=== PATIENT | female | born 1975 | race Caucasian/White ===

== ENCOUNTER → 2017-12-16 14:39 | Outpatient (CLI) | payer BC, SELFPAY ==
[2017-12-16 16:06] LABS: Erythrocyte Sedimentation Rate 37 mm/hr (0-20)
[2017-12-16 16:36] LABS: Anion Gap 11 (5-15); BUN 15 mg/dL (7-18); BUN/Creat Ratio 20.2 RATIO (10-20); CRP < 2.90 mg/L (0.0-3.0); Calcium,Total 8.7 mg/dL (8.5-10.1); Chloride 104 mmol/L (98-107); Cholesterol 288 mg/dL (200); Creatinine, Serum 0.74 mg/dL (0.55-1.02); EST Glomerular Filtration Rate 91 mL/min (>60); Est Glom Filt Rate - Afr Amer 110 mL/min (>60); Glucose 124 mg/dL (74-106); High Density Lipoprotein 47 mg/dL; Potassium 3.4 mmol/L (3.5-5.1); Sodium Level 138 mmol/L (136-145); Thyroid Stim Hormone (TSH) 2.22 uIU/mL (0.358-3.74); Triglycerides 371 mg/dL; Very Low Density Lipoprotein 74 mg/dL (5-40)
== END ==
PROVIDERS: Family Provider Family Medicine; PCP Family Medicine; Visit Provider Family Medicine
DX: E78.5 Hyperlipidemia, unspecified (principal); M19.90 Unspecified osteoarthritis, unspecified site; F32.9 Major depressive disorder, single episode, unspecified
CPT/HCPCS: 36415; 80048; 80061; 84443; 85652; 86038; 86140

== ENCOUNTER → 2017-12-26 16:25 | Outpatient (CLI) | payer BC, SELFPAY ==
[2017-12-29 11:13] LABS: ANTINUCLEAR ANTIBODIES DIRECT Negative (Negative)
== END ==
PROVIDERS: Family Provider Family Medicine; PCP Family Medicine; Visit Provider Family Medicine
DX: M19.90 Unspecified osteoarthritis, unspecified site (principal)
CPT/HCPCS: 86038

== ENCOUNTER → 2018-01-04 06:08 | Outpatient (CLI) | payer BC, SELFPAY ==
--- NOTE | 2018-01-04 11:21 | STRESSREP ---
Stress Test Report Date: 12/03/2017 Procedure: Exercise tolerance test/imaging study Indications: Chest pain; shortness of breath Consent: Per the patient Procedure: The patient exercised on a Sky protocol for 10 minutes 31 seconds completing stage 2 and 1 minute 30 seconds of stage III achieving a peak heart rate of 155 bpm (87% predicted maximal heart rate) with a peak blood pressure 142/68 mmHg and a peak MET capacity of 9 METs. The baseline ECG demonstrated sinus rhythm. The peak exercise ECG demonstrated somatic/motion artifact with no obvious ECG changes. There were no cardiac dysrhythmias pretest, during exercise, or recovery. The functional capacity was considered average. There was no complaint of chest discomfort during exercise or recovery. The examination was discontinued secondary to dyspnea. Impression: 1. Technically adequate (percent predicted maximal heart rate greater than 85%) exercise tolerance test 2. Peak exercise ECG with somatic/motion artifact with no obvious ECG changes 3. No cardiac dysrhythmias pretest, during exercise, or recovery. 4. Nuclear images pending Myocardial perfusion imaging study: Technique: The patient was injected with 1.3 mCi of technetium 99m Cardiolite and subsequently rest SPECT Cardiolite nuclear imaging was obtained in the horizontal long, vertical long, and short axis views. The patient exercised on a Sky protocol for 7 minutes 31 seconds completing stage stage II and I minute 30 seconds of stage III achieving a peak heart rate of 155 bpm (87 % predicted maximal heart rate) with a peak blood pressure 142/68 mmHg and a peak MET capacity of 9 METs the patient was injected with 33.9 mCi of technetium 99m Cardiolite and subsequently stress SPECT Cardiolite nuclear imaging was obtained in the horizontal long, vertical long, and short axis views. A gated Cardiolite study at peak stress was obtained. Interpretation: Rest and stress SPECT Cardiolite nuclear imaging status post realignment, normalization, and attenuation correction, demonstrates the appearance of relative uniform tracer uptake and myocardial perfusion appearing within normal limits. There is end systolic thickening and brightening. The gated Cardiolite study demonstrates myocardial thickening and inward wall motion. The reported LVEF is 72 %. Impression: 1. Rest and stress SPECT Cardiolite nuclear imaging demonstrate relative uniform tracer uptake and myocardial perfusion appearing within normal limits. 2. The gated Cardiolite study reports an LVEF of 72 %. This note was generated with [employer] software. It may contain incorrect words, spelling, and punctuation that were not noted in checking the note before signing.
--- NOTE | 2018-01-04 11:26 | STRESSREP_ITS ---
Stress Test Report Date: 12/03/2017 Procedure: Exercise tolerance test/imaging study Indications: Chest pain; shortness of breath Consent: Per the patient Procedure: The patient exercised on a Sky protocol for 10 minutes 31 seconds completing stage 2 and 1 minute 30 seconds of stage III achieving a peak heart rate of 155 bpm (87% predicted maximal heart rate) with a peak blood pressure 142/68 mmHg and a peak MET capacity of 9 METs. The baseline ECG demonstrated sinus rhythm. The peak exercise ECG demonstrated somatic/motion artifact with no obvious ECG changes. There were no cardiac dysrhythmias pretest, during exercise, or recovery. The functional capacity was considered average. There was no complaint of chest discomfort during exercise or recovery. The examination was discontinued secondary to dyspnea. Impression: 1. Technically adequate (percent predicted maximal heart rate greater than 85% ) exercise tolerance test 2. Peak exercise ECG with somatic/motion artifact with no obvious ECG changes 3. No cardiac dysrhythmias pretest, during exercise, or recovery. 4. Nuclear images pending Myocardial perfusion imaging study: Technique: The patient was injected with 1.3 mCi of technetium 99m Cardiolite and subsequently rest SPECT Cardiolite nuclear imaging was obtained in the horizontal long, vertical long, and short axis views. The patient exercised on a Sky protocol for 7 minutes 31 seconds completing stage stage II and I minute 30 seconds of stage III achieving a peak heart rate of 155 bpm (87 % predicted maximal heart rate) with a peak blood pressure 142/68 mmHg and a peak MET capacity of 9 METs the patient was injected with 33.9 mCi of technetium 99m Cardiolite and subsequently stress SPECT Cardiolite nuclear imaging was obtained in the horizontal long, vertical long, and short axis views. A gated Cardiolite study at peak stress was obtained. Interpretation: Rest and stress SPECT Cardiolite nuclear imaging status post realignment, normalization, and attenuation correction, demonstrates the appearance of relative uniform tracer uptake and myocardial perfusion appearing within normal limits. There is end systolic thickening and brightening. The gated Cardiolite study demonstrates myocardial thickening and inward wall motion. The reported LVEF is 72 %. Impression: 1. Rest and stress SPECT Cardiolite nuclear imaging demonstrate relative uniform tracer uptake and myocardial perfusion appearing within normal limits. 2. The gated Cardiolite study reports an LVEF of 72 %. This note was generated with [employer] software. It may contain incorrect words, spelling, and punctuation that were not noted in checking the note before signing.
== END ==
PROVIDERS: Family Provider Family Medicine; PCP Family Medicine; Visit Provider Family Medicine
DX: E78.5 Hyperlipidemia, unspecified (principal); Z82.49 Family history of ischemic heart disease and other diseases of the circulatory system; R07.9 Chest pain, unspecified
CPT/HCPCS: 78452; 93017; A9500; A4216

== ENCOUNTER → 2021-01-02 12:23 | Outpatient (CLI) | payer BC, SELFPAY ==
[2020-08-01 08:56] VITALS: BMI 35.6
== END ==
PROVIDERS: PCP Family Medicine; Referring Provider Family Medicine; Visit Provider Family Medicine
DX: R00.2 Palpitations (principal)
CPT/HCPCS: 93225; 93226

== ENCOUNTER → 2021-01-18 | Outpatient (CLI) | payer BC, SELFPAY ==
[2021-01-19 09:13] LABS: Mucous, Urine 0 SEEN /hpf (<or=2+)
[2021-01-19 09:20] LABS: Color, Urine Yellow (Yellow); Glucose, Dipstick Normal (Normal); Ketone-Dipstick 5 mg/dl (Negative); Leukocyte Esterase-Dipstick 25 /ul (Negative); Nitrite-Dipstick Negative (Negative); Occult Blood-Urine 250 /ul (Negative); Protein-Dipstick 15 mg/dl (Negative); Specific Gravity, Urine 1.015 (1.002-1.030); Urine Bilirubin Dipstick Negative (Negative); Urine Clarity Sl. Cloudy (Clear); Urine Urobilinogen Normal (Normal)
[2021-01-19 09:33] LABS: Red Blood Cells-Urine 25-50 SEEN /hpf (0-5); White Blood Cells 0-5 SEEN /hpf (0-5)
[2021-01-19 09:34] LABS: Bacteria 1+ /hpf (None Seen); Squamous Epithelial Cells - UA 0-5 SEEN /hpf (5-10)
== END | disposition home or self-care (01) ==
LOC: LABSPEC 14:15
PROVIDERS: PCP Family Medicine; Referring Provider Physician Assistant Medical; Visit Provider Physician Assistant Medical
DX: N39.0 Urinary tract infection, site not specified (principal)
CPT/HCPCS: 81001; 87086; 87088

== ENCOUNTER 2021-01-30 16:37 | Emergency (ER) | payer BC, SELFPAY ==
[2021-01-30 16:38] VITALS: BP 145/82; PULSE 94; RESP 16; TEMP 36.4; O2SAT 97; BMI 36.0
--- NOTE | 2021-01-30 16:44 | CT_ITS ---
STUDY: CT ABDOMEN AND PELVIS WITHOUT CONTRAST REASON FOR EXAM: Female, 45 years old. RT FLANK PAIN. Hx of HLD, kidney stone and low back pain RADIATION DOSAGE (If Supplied By Facility): CTDIvol = ( 18.09 ) mGy, DLP = ( 822.44 ) mGycm TECHNIQUE: Transaxial images were obtained from the dome of the diaphragm to the symphysis pubis without oral contrast, and without intravenous contrast. Sagittal and coronal images were reconstructed. Individualized dose optimization techniques were used for this CT. COMPARISON: CT of abdomen and pelvis dated August 06, 2014 FINDINGS: The visualized lung bases are unremarkable. The visualized portions of the heart are within normal limits. Normal liver. Normal gallbladder and extrahepatic biliary system. Normal spleen. Normal pancreas. Normal bilateral adrenal glands. A 3 mm stone is present in the right proximal ureter with mild hydroureter and hydronephrosis proximal to this region. No additional radiopaque stones are seen in either kidney. Normal left kidney. Normal visualized stomach. Normal small intestine. Normal colon. The appendix is visualized and appears normal. Normal abdominal aorta. Normal inferior vena cava. Normal retroperitoneum. Normal urinary bladder. Normal visualized uterus. Normal abdominal wall. Normal osseous structures. CT/Abdomen/Pelvis without Cont IMPRESSION: 1. Mild right hydronephrosis and hydroureter due to a 3 mm stone in the proximal aspect of the right ureter Electronically Signed: Fabricio Sanchez MD at 18:37 EDT , Service support ,
--- NOTE | 2021-01-30 16:45 | ED.VIS.GEN ---
History of Present Illness Chief Complaint: Flank Pain Informant: Patient Onset: Today Context: Sudden Onset Timing: Continuous Current Severity: Moderate Maximum Severity: Severe Narrative: The patient is a 45-year-old female who presents to the emergency department with right-sided flank pain. She states her symptoms began suddenly about 3 hours ago. She states it would come in waves and seems to be moving towards her anterior right abdomen. She has been nauseated without vomiting. She denies any fevers or chills. The patient does have history of prior kidney stone about 7 years ago. She states she did require lithotripsy. She is otherwise been in her normal state of health. She denies any trauma. She denies any food intolerance. Prior similar symptoms: Yes Recent Illness/Hospitalization: No Past Medical History - Allergies and Home Meds Allergies/Adverse Reactions: Allergies No Known Allergies Allergy (Verified 01/30/21 16:40) Primary Care Physician: Isael Parker MD [STAFF PHYSICIAN] - Prior records reviewed: Yes Past Medical History: None Surgical History: noncontributory Smoking Status: Current every day smoker Review of Systems General: Denies: Chills, Fever, Sweats Eyes: Denies: Visual changes - bilaterally, Diplopia ENT: Denies: Rhinorrhea, Sore throat Cardiovascular: Denies: Chest pain, Palpitations Respiratory: Denies: Dyspnea, Cough, Dyspnea on exertion Gastrointestinal: Reports: Nausea. Denies: Abdominal pain, Vomiting, Diarrhea, Melena, Hematochezia Genitourinary: Denies: Dysuria, Hematuria, Frequency Musculoskeletal: Reports: Back pain. Denies: Extremity Pain Skin: Denies: Rash, Wounds Neurological: Denies: Headache, Weakness, Numbness Physical Exam Vital Signs/Narrative: Vital Signs Temp Pulse Resp BP Pulse Ox 01/30/21 16:38 97.6 F L 94 16 145/82 H 97 Inital Vital Signs reviewed: Yes General: Well nourished, Well developed, No Acute Distress Head: Normocephalic, Atraumatic Eyes: Perrl, EOMI ENT: Moist mucous membranes, No rhinorrhea Neck: Supple, Nontender Cardiovascular: Regular rate, Regular rhythm, No murmurs Respiratory: No distress, CTA bilaterally, Chest nontender Abdomen: Soft, Nontender, Nondistended, Normal bowel sounds Back: Normal Inspection, CVA tenderness Extremities: Nontender, No edema Skin: Normal color, No rash Neurological: Alert, Oriented x3, Cranial nerves II-XII grossly intact, Normal Strength, Normal Sensation Psychological: Normal affect, Normal Mood Diagnostic/Tx/Re-eval Abnormal Lab Results 01/30/21 01/30/21 01/30/21 17:00 17:00 17:00 WBC 13.8 H RBC 5.04 Hgb 14.7 Hct 44.7 MCV 88.7 MCH 29.2 MCHC 32.9 RDW Std Deviation 43.3 RDW Coeff of Jessica 13.2 Plt Count 464 H MPV 9.9 Immature Gran % (Auto) 0.700 Neut % (Auto) 58.2 Lymph % (Auto) 27.5 [place] % (Auto) 10.0 Eos % (Auto) 2.2 Baso % (Auto) 1.4 H Absolute Neuts (auto) 8.0 H Absolute Lymphs (auto) 3.80 Nucleated RBC % 0 Sodium 137 Potassium 3.8 Chloride 106 Carbon Dioxide 26.0 Anion Gap 5 BUN 12 Creatinine 0.82 Estim Creat Clear Calc 70.91 Est GFR (MDRD) Af Amer 96 Est GFR (MDRD) Non-Af 79 BUN/Creatinine Ratio 14.6 Glucose 78 Calcium 9.1 Serum , Qual NEGATIVE Clinical Impression(s) from Imaging Studies Abdomen/Pelvis CT 01/30/21 16:44 IMPRESSION: 1. Mild right hydronephrosis and hydroureter due to a 3 mm stone in the proximal aspect of the right ureter Electronically Signed: Fabricio Sanchez MD at 18:37 EDT , Service support , - Medical Decision Making The patient presents with rather acute onset right-sided flank pain. She was nausea without vomiting. She does have history of kidney stone. IV was established. Patient was given analgesics and antiemetics. Within 30 minutes, she had total resolution of pain. Screening labs obtained were unremarkable. Patient underwent CT imaging. She has a 3 mm stone at the mid ureter with some mild hydro-. However, the patient's pain is now controlled. I do feel that she is safe for outpatient follow-up. She was counseled on concerning symptoms and reasons to return. She will be given a short course of analgesics, antiemetics, and Flomax. She will be given outpatient urology follow-up. Impression 1. Right ureteral stone with colic ED Disposition - Plan for ED Patient: Instructions: ED Kidney Stone w/ Colic Prescriptions: Tamsulosin HCl [Flomax] 0.4 mg PO DAILY #7 capsule Prescription Printed Hydrocodone Bitart/Apap 5-325 [[place] 5MG-325MG] 1 tablet PO Q6H PRN PRN 3 Days #10 tab PRN Reason: Pain Prescription Printed Ondansetron [Zofran Odt] 4 mg PO Q8H PRN PRN #10 tablet PRN Reason: Nausea Prescription Printed Referrals: Isael Parker MD [STAFF PHYSICIAN] -
[2021-01-30] MEDS: Ondansetron 4 MG/2 ML Vial IV (17:07)
[2021-01-30] MEDS: Ketorolac 30 MG/ML Syringe IV (17:07)
[2021-01-30] MEDS: Morphine 4 MG/ML Syringe IV (17:08)
[2021-01-30] MEDS: 0.9% Normal Saline 1,000 ML 250 ML IV (17:09)
[2021-01-30 17:11] LABS: Basophil% 1.4 % (0-1); Eosinophil# 0.31 X10^3/uL; Eosinophils% 2.2 % (0-5); Hematocrit 44.7 % (37-47); Hemoglobin 14.7 g/dL (12.0-15.0); Lymphocyte % 27.5 % (19-41); Mean Corp Hgb Conc 32.9 g/dL (32-36); Mean Corpuscular Hgb 29.2 pg (27.0-32.0); Mean Corpuscular Volume 88.7 fL (81-99); Mean Platelet Vol. 9.9 fl (6.2-12.0); Monocyte# 1.39 X10^3/uL; NRBC Flagged by Analyzer 0 % (0-5); Neutrophil # 8.04 X10^3/uL (2.7-7.7); Neutrophil % 58.2 % (47-70); Platelet Count 464 K/mm3 (150-450); RBC Distribution Width CV 13.2 % (11.6-14.6); RBC Distribution Width SD 43.3 fl (35.1-43.9); Red Blood Count 5.04 M/mm3 (4.2-5.4); White Blood Count 13.8 K/mm3 (4.4-11.0)
[2021-01-30 17:21] LABS: Anion Gap 5 (5-15); BUN 12 mg/dL (7-18); BUN/Creat Ratio 14.6 RATIO (10-20); Calcium,Total 9.1 mg/dL (8.5-10.1); Chloride 106 mmol/L (98-107); Creatinine, Serum 0.82 mg/dL (0.55-1.02); EST Glomerular Filtration Rate 79 mL/min (>60); Est Glom Filt Rate - Afr Amer 96 mL/min (>60); Estimated Creatinine Clearance 70.91 ml/min; Glucose 78 mg/dL (74-106); Potassium 3.8 mmol/L (3.5-5.1); Sodium Level 137 mmol/L (136-145)
[2021-01-30 17:59] LABS: Internal QC Validated? YES +Cl - CLEAR BKGD; Pregnancy, Serum, hCG Quali. NEGATIVE Negative
[2021-01-30 18:21] LABS: Bacteria 0 SEEN /hpf (None Seen); Mucous, Urine 0 SEEN /hpf (<or=2+)
[2021-01-30 18:24] LABS: Color, Urine Yellow (Yellow); Glucose, Dipstick Normal (Normal); Ketone-Dipstick 5 mg/dl (Negative); Leukocyte Esterase-Dipstick 25 /ul (Negative); Nitrite-Dipstick Negative (Negative); Occult Blood-Urine 250 /ul (Negative); Protein-Dipstick Negative (Negative); Urine Bilirubin Dipstick Negative (Negative); Urine Clarity Sl. Cloudy (Clear); Urine Urobilinogen Normal (Normal)
[2021-01-30 18:35] LABS: Red Blood Cells-Urine 25-50 SEEN /hpf (0-5); White Blood Cells 0-5 SEEN /hpf (0-5)
[2021-01-30 18:36] LABS: Amorphous Sediment 1+ URATE; Squamous Epithelial Cells - UA 0-5 SEEN /hpf (5-10)
[2021-01-30 18:45] VITALS: PULSE 88; RESP 16; O2SAT 100
== END 2021-01-30 18:45 | disposition home or self-care (01) ==
LOC: ED 16:53
PROVIDERS: Emergency Provider Emergency Medicine; PCP Family Medicine
DX: N13.2 Hydronephrosis with renal and ureteral calculous obstruction (principal); F17.200 Nicotine dependence, unspecified, uncomplicated; Z87.442 Personal history of urinary calculi
CPT/HCPCS: 74176; 80048; 81001; 84703; 85025; 96374; 96375; 99283; J7030; A4216; J2405

== ENCOUNTER → 2021-03-16 08:40 | Outpatient (CLI) | payer BC, SELFPAY ==
--- NOTE | 2021-03-16 08:51 | RAD_ITS ---
INDICATION: CALCULUS URETER EXAMINATION/TECHNIQUE: X-RAY - XR Abdomen 1 View COMPARISON: None FINDINGS: BOWEL GAS PATTERN: Non-obstructive. No bowel or stomach distention. FREE AIR: Not assessed on a single supine view. ORGANOMEGALY: Not seen. CALCIFICATIONS: 4 mm round calcification in the right hemipelvis. LOWER CHEST: No acute pathology. BONES AND SOFT TISSUES: No acute pathology. RAD/Abdomen Single View IMPRESSION: 4 mm round calcification in the right hemipelvis. This could represent a phlebolith versus a stone within the right ureterovesical junction. Electronically Signed: Gage Martinez MD at 18:26 EDT Tel , Service support ,
[2021-03-16 11:03] LABS: Absolute Lymphocyte Count 2.73 X10^3/uL (0.83-4.51); Absolute Neutrophil Count 4.6 X10^3/uL (2.0-7.7); Basophil% 1.2 % (0-1); Eosinophil# 0.35 X10^3/uL; Eosinophils% 4.1 % (0-5); Hematocrit 45.5 % (37-47); Hemoglobin 14.8 g/dL (12.0-15.0); Lymphocyte # 2.73 X10^3/ul (0.83-4.51); Lymphocyte % 32.1 % (19-41); Mean Corp Hgb Conc 32.5 g/dL (32-36); Mean Corpuscular Hgb 29.2 pg (27.0-32.0); Mean Corpuscular Volume 89.9 fL (81-99); Mean Platelet Vol. 11.5 fl (6.2-12.0); Monocyte# 0.73 X10^3/uL; Monocyte% 8.6 % (0-10); NRBC Flagged by Analyzer 0 % (0-5); Neutrophil # 4.57 X10^3/uL (2.7-7.7); Neutrophil % 53.8 % (47-70); Platelet Count 378 K/mm3 (150-450); RBC Distribution Width CV 13.3 % (11.6-14.6); RBC Distribution Width SD 43.8 fl (35.1-43.9); Red Blood Count 5.06 M/mm3 (4.2-5.4); White Blood Count 8.5 K/mm3 (4.4-11.0)
[2021-03-16 11:41] LABS: AST(SGOT) 16 U/L (15-37); Alanine Aminotransfer ALT/SGPT 31 U/L (13-56); Albumin, Serum 3.6 g/dL (3.2-5.0); Alkaline Phosphatase 93 U/L (45-117); Anion Gap 7 (5-15); BUN 11 mg/dL (7-18); BUN/Creat Ratio 15.4 RATIO (10-20); Calcium,Total 9.2 mg/dL (8.5-10.1); Chloride 105 mmol/L (98-107); Cholesterol 259 mg/dL (200); Creatinine, Serum 0.72 mg/dL (0.55-1.02); EST Glomerular Filtration Rate 93 mL/min (>60); Est Glom Filt Rate - Afr Amer 113 mL/min (>60); Globulin 3.7 g/dL (2.2-4.2); Glucose 88 mg/dL (74-106); High Density Lipoprotein 48 mg/dL; Protein, Total 7.3 g/dL (6.4-8.2); Sodium Level 137 mmol/L (136-145); Thyroid Stim Hormone (TSH) 2.81 uIU/mL (0.358-3.74); Triglycerides 118 mg/dL; Very Low Density Lipoprotein 24 mg/dL (5-40)
[2021-03-16 12:20] LABS: Hemoglobin A1c 5.4 % (3.8-5.6)
== END ==
PROVIDERS: PCP Family Medicine; Referring Provider Nurse Practitioner Adult Health; Visit Provider Nurse Practitioner Adult Health
DX: Z00.01 Encounter for general adult medical examination with abnormal findings (principal); F32.9 Major depressive disorder, single episode, unspecified; E78.00 Pure hypercholesterolemia, unspecified; R00.2 Palpitations; N20.1 Calculus of ureter
CPT/HCPCS: 36415; 74018; 80053; 80061; 83036; 84443; 85025

== ENCOUNTER 2021-07-27 06:15 | Emergency (ER) | payer BC, SELFPAY ==
[2021-07-27 06:16] VITALS: BP 142/87; PULSE 72; RESP 16; TEMP 36.5; O2SAT 99; BMI 35.4
--- NOTE | 2021-07-27 07:00 | CT_ITS ---
STUDY: CT ABDOMEN AND PELVIS WITHOUT CONTRAST REASON FOR EXAM: Female, 46 years old. Kidney Stone, right flank pain RADIATION DOSAGE (If Supplied By Facility): CTDIvol = ( 15.99 ) mGy, DLP = ( 822.92 ) mGycm TECHNIQUE: Transaxial images were obtained from the dome of the diaphragm to the symphysis pubis without oral contrast, and without intravenous contrast. Sagittal and coronal images were reconstructed. Individualized dose optimization techniques were used for this CT. COMPARISON: 01/30/2021 FINDINGS: The visualized lung bases are unremarkable. The visualized portions of the heart are within normal limits. Normal liver. Normal gallbladder and extrahepatic biliary system. Normal spleen. Normal pancreas. Normal bilateral adrenal glands. Tiny right UVJ calculus with moderate right hydroureteronephrosis, right renal edema and swelling, and perinephric fat stranding. Normal left kidney. Normal visualized stomach. Normal small intestine. Normal colon. The appendix is visualized and appears normal. Normal abdominal aorta. Normal inferior vena cava. Normal retroperitoneum. Normal urinary bladder. Normal visualized uterus. Normal abdominal wall. Normal osseous structures. CT/Abdomen/Pelvis without Cont IMPRESSION: Tiny obstructing right UVJ calculus with moderate hydroureteronephrosis. Electronically Signed: Adin Yadav MD at 7:48 EDT Tel , Service support ,
[2021-07-27] MEDS: Ondansetron 4 MG/2 ML Vial IV (07:09)
[2021-07-27] MEDS: Morphine 4 MG/ML Syringe IV (07:09)
[2021-07-27] MEDS: Ketorolac 30 MG/ML Syringe IV (07:09)
--- NOTE | 2021-07-27 07:09 | EDS_ITS ---
HPI History of Present Illness Chief Complaint: Flank Pain Informant: patient Onset/Context/Timing Onset: Today Timing: Continuous Current Severity: Moderate Maximum Severity: Severe Narrative Narrative: Patient presents secondary to right flank pain. Patient states she woke at 2 AM this morning with severe right flank pain. This feels like similar kidney stones. Patient does report nausea secondary to pain. She has required surgical intervention for one prior kidney stone. [facility] Medical History Kidney stones Home Medications lorazepam 1 mg PO DAILY PRN PRN 11/28/17 [History Last Taken Unknown] sertraline 50 mg tablet PO #90 tab 07/20/19 [History Last Taken Unknown] tizanidine 4 mg capsule 4 mg PO Q8H PRN #30 cap 08/01/20 [Rx Last Taken Unknown] sulfamethoxazole 800 mg-trimethoprim 160 mg tablet 1 tab PO BID #10 tab 01/18/21 [Rx Last Taken Unknown] ondansetron 4 mg PO Q8H PRN PRN #10 tablet 01/30/21 [Rx Last Taken Unknown] tamsulosin 0.4 mg PO DAILY #7 capsule 01/30/21 [Rx Last Taken Unknown] hydrocodone-acetaminophen 1 tab PO Q6H PRN 3 Days #10 tab 07/27/21 [Rx Last Taken Unknown] ketorolac 10 mg PO Q6H PRN 3 Days #10 tab 07/27/21 [Rx Last Taken Unknown] ondansetron 4 mg PO Q8H PRN #10 tab 07/27/21 [Rx Last Taken Unknown] tamsulosin [Flomax] 0.4 mg PO DAILY #7 cap 07/27/21 [Rx Last Taken Unknown] Allergy/AdvReac Type Severity Reaction Status Date / Time No Known Allergies Allergy Verified 07/27/21 06:18 Family History Father Heart disease Grandmother Heart disease Grandfather Heart disease Surgical History Hx of section Status post surgical removal of both fallopian tubes Social History Smoking Status: Current every day smoker tobacco type: cigarettes alcohol intake: current alcohol intake frequency: holidays/special occasions only ROS ROS ED Constitutional Constitutional ED: Denies chills or fever(s) Eyes Eyes: Denies change in vision ENT ENT ED: Denies sore throat Cardiovascular Cardiovascular: Denies chest pain Respiratory/Chest Respiratory/Chest: Denies cough or dyspnea Gastrointestinal Gastrointestinal: Reports abdominal pain and nausea; Denies diarrhea or vomiting Genitourinary Genitourinary ED: Denies dysuria or hematuria Musculoskeletal Musculoskeletal: Reports back pain Integumentary Denies rash Neurologic Neurologic: Denies headache(s) or weakness Allergic/Immunologic Allergic/Immunologic ED: Denies urticaria EXAM Physical Exam Const Vital Signs: 07/27/21 06:16 Temperature 97.7 F L Temperature Source Oral Pulse Rate 72 Respiratory Rate 16 Blood Pressure 142/87 H Blood Pressure Mean 105 Pulse Ox 99 Oxygen Delivery Method Room Air Positive well nourished and well developed General Appearance ED: well developed HEENT Reports normocephalic and head/scalp atraumatic Eyes PERRL and EOMs intact bilaterally Neck supple Chest Wall inspection of chest normal and palpation of chest normal Resp normal respiratory effort and clear to auscultation bilaterally Cardio regular rate and regular rhythm GI non-tender Auscultation: hypoactive bowel sounds Palpation: soft Back/Spine General Back: CVA tenderness right Extremity normal to inspection Neuro oriented x3 and no sensory deficits noted Sensorium / Orientation: alert Motor Exam: strength 5/5 throughout Psych mental status grossly normal Skin no rashes or lesions noted MDM MDM MDM Narrative Medical decision making narrative: Patient is given morphine, Toradol, Zofran, IV fluids. Lab work, CT flank, urinalysis obtained. Lab Data Attestation: I reviewed the patient's lab results. Labs: Laboratory Results - last 24 hr 07/27/21 07/27/21 07/27/21 06:25 06:25 06:25 WBC 14.1 H RBC 5.08 Hgb 14.8 Hct 44.9 MCV 88.4 MCH 29.1 MCHC 33.0 RDW Std Deviation 43.7 RDW Coeff of Jessica 13.5 Plt Count 357 MPV 11.1 Immature Gran % (Auto) 0.500 Neut % (Auto) 66.0 Lymph % (Auto) 21.7 [place] % (Auto) 8.5 Eos % (Auto) 2.2 Baso % (Auto) 1.1 H Absolute Neuts (auto) 9.3 H Absolute Lymphs (auto) 3.06 Nucleated RBC % 0 Sodium 136 Potassium 4.0 Chloride 106 Carbon Dioxide 22.0 Anion Gap 8 BUN 18 Creatinine 1.00 Estim Creat Clear Calc 57.53 Est GFR (MDRD) Af Amer 77 Est GFR (MDRD) Non-Af 63 BUN/Creatinine Ratio 18.0 Glucose 116 H Calcium 8.6 Urine Color Yellow Urine Clarity Sl. Cloudy Urine pH 5.0 Ur Specific [place] 1.020 Urine Protein 15 H Urine Glucose (UA) Normal Urine Ketones Negative Urine Occult Blood 250 H Urine Nitrite Negative Urine Bilirubin Negative Urine Urobilinogen Normal Ur Leukocyte Esterase 25 H Urine RBC 25-50 SEEN Urine WBC 0-5 SEEN Ur Squamous Epith Cells 0-5 SEEN Urine Bacteria 1+ Urine Mucus 0 SEEN Radiography Diagnostic Testing: Radiology Impression Abdomen/Pelvis CT 07/27/21 07:00 IMPRESSION: Tiny obstructing right UVJ calculus with moderate hydroureteronephrosis. Electronically Signed: Adin Yadav MD at 7:48 EDT Tel , Service support , Treatment and Re-Evaluation Comments:: On repeat evaluation patient resting much more comfortably. Lab work is reviewed. White count is elevated at 14.1. Normal renal function. Urinalysis does reveal blood but no sign of infection. CT flank reveals small right UVJ calculus. On my review of imaging it appears to measure approximately 3 mm. I did discuss with her that she will likely pass this. She will be given medication and referral to Dr. Parker who she has seen in the past. Return instructions are provided. Discharge Plan Triage Chief Complaint: Flank Pain ED Provider: Bere Lester Dx/Rx/DC Orders Clinical Impression: Ureterolithiasis Instructions: ED Kidney Stone w/ Colic Prescriptions: New hydrocodone-acetaminophen 5-325 mg tablet 1 tab PO Q6H PRN (Reason: pain) 3 Days Qty: 10 RF: 0 ketorolac 10 mg tablet 10 mg PO Q6H PRN (Reason: pain) 3 Days Qty: 10 RF: 0 ondansetron 4 mg tablet,disintegrating 4 mg PO Q8H PRN (Reason: nausea and vomiting) Qty: 10 RF: 0 tamsulosin [Flomax] 0.4 mg capsule 0.4 mg PO DAILY Qty: 7 RF: 0 No Action sertraline 50 mg tablet PO Qty: 90 RF: 0 tizanidine 4 mg capsule 4 mg PO Q8H PRN (Reason: muscle spasticity) Qty: 30 RF: 0 sulfamethoxazole-trimethoprim [Bactrim DS] 800-160 mg tablet 1 tab PO BID Qty: 10 RF: 0 lorazepam 1 MG tablet 1 mg PO DAILY PRN PRN (Reason: Anxiety) RF: 0 tamsulosin 0.4 MG capsule 0.4 mg PO DAILY Qty: 7 RF: 0 ondansetron 4 MG tablet 4 mg PO Q8H PRN PRN (Reason: Nausea) Qty: 10 RF: 0 Primary Care Provider: Steffi Thakur Referrals: Steffi Thakur MD [Primary Care Provider] - Isael Parker MD [STAFF PHYSICIAN] - 1 Week if not improving Disposition Disposition: Home, Self Care
[2021-07-27] MEDS: 0.9% Normal Saline 1,000 ML 250 ML IV (07:10)
[2021-07-27 07:12] LABS: Mucous, Urine 0 SEEN /hpf (<or=2+)
[2021-07-27 07:14] LABS: Absolute Lymphocyte Count 3.06 X10^3/uL (0.83-4.51); Absolute Neutrophil Count 9.3 X10^3/uL (2.0-7.7); Basophil# 0.15 X10^3/uL; Basophil% 1.1 % (0-1); Eosinophil# 0.31 X10^3/uL; Eosinophils% 2.2 % (0-5); Hematocrit 44.9 % (37-47); Hemoglobin 14.8 g/dL (12.0-15.0); Lymphocyte # 3.06 X10^3/ul (0.83-4.51); Lymphocyte % 21.7 % (19-41); Mean Corpuscular Hgb 29.1 pg (27.0-32.0); Mean Corpuscular Volume 88.4 fL (81-99); Mean Platelet Vol. 11.1 fl (6.2-12.0); Monocyte% 8.5 % (0-10); NRBC Flagged by Analyzer 0 % (0-5); Neutrophil # 9.28 X10^3/uL (2.7-7.7); Platelet Count 357 K/mm3 (150-450); RBC Distribution Width CV 13.5 % (11.6-14.6); RBC Distribution Width SD 43.7 fl (35.1-43.9); Red Blood Count 5.08 M/mm3 (4.2-5.4); White Blood Count 14.1 K/mm3 (4.4-11.0)
[2021-07-27 07:24] LABS: Anion Gap 8 (5-15); BUN 18 mg/dL (7-18); Calcium,Total 8.6 mg/dL (8.5-10.1); Chloride 106 mmol/L (98-107); EST Glomerular Filtration Rate 63 mL/min (>60); Est Glom Filt Rate - Afr Amer 77 mL/min (>60); Estimated Creatinine Clearance 57.53 ml/min; Glucose 116 mg/dL (74-106); Sodium Level 136 mmol/L (136-145)
[2021-07-27 07:40] LABS: Color, Urine Yellow (Yellow); Glucose, Dipstick Normal (Normal); Ketone-Dipstick Negative (Negative); Leukocyte Esterase-Dipstick 25 /ul (Negative); Nitrite-Dipstick Negative (Negative); Occult Blood-Urine 250 /ul (Negative); Protein-Dipstick 15 mg/dl (Negative); Urine Bilirubin Dipstick Negative (Negative); Urine Clarity Sl. Cloudy (Clear); Urine Urobilinogen Normal (Normal)
[2021-07-27 07:50] LABS: Bacteria 1+ /hpf (None Seen); Red Blood Cells-Urine 25-50 SEEN /hpf (0-5); Squamous Epithelial Cells - UA 0-5 SEEN /hpf (5-10); White Blood Cells 0-5 SEEN /hpf (0-5)
[2021-07-27 08:18] VITALS: BP 114/50; PULSE 62; RESP 16; O2SAT 99
== END 2021-07-27 08:25 | disposition home or self-care (01) ==
PROVIDERS: Emergency Provider Emergency Medicine; PCP Family Medicine
DX: N13.2 Hydronephrosis with renal and ureteral calculous obstruction (principal); F17.210 Nicotine dependence, cigarettes, uncomplicated; Z87.442 Personal history of urinary calculi
CPT/HCPCS: 74176; 80048; 81001; 85025; 96361; 96374; 96375; 99284; J7030; A4216; J2405

== ENCOUNTER 2021-08-02 10:11 | Day surgery (SDC) | payer BC, SELFPAY ==
[2021-08-02] VITALS (11 sets, daily range): BP systolic 100–148; BP diastolic 52–80; PULSE 73–94; RESP 16–18; TEMP 36.1–37.1; O2SAT 95–100; BMI 35.4
--- NOTE | 2021-08-02 10:47 | EX.ED.DYSGE1 ---
HPI History of Present Illness Chief Complaint: Flank Pain Informant: patient Onset/Context/Timing Onset: Days Context: Gradual Onset Timing: Waxes and wanes Current Severity: Severe Maximum Severity: Severe Narrative Narrative: Patient presents with continued right flank pain. Patient was seen here on the and found have a 3 mm right UVJ stone. She was discharged with Brandon and Toradol. Patient states the Toradol helped control her pain. She ran out of this yesterday. She denies increased pain to the right flank. She does note passing some blood clots in her urine. No dysuria. [facility] Medical History Kidney stones Home Medications lorazepam 1 mg PO DAILY PRN PRN 11/28/17 [History Last Taken Unknown] sertraline 50 mg tablet PO #90 tab 07/20/19 [History Last Taken Unknown] tizanidine 4 mg capsule 4 mg PO Q8H PRN #30 cap 08/01/20 [Rx Last Taken Unknown] sulfamethoxazole 800 mg-trimethoprim 160 mg tablet 1 tab PO BID #10 tab 01/18/21 [Rx Last Taken Unknown] ondansetron 4 mg PO Q8H PRN PRN #10 tablet 01/30/21 [Rx Last Taken Unknown] tamsulosin 0.4 mg PO DAILY #7 capsule 01/30/21 [Rx Last Taken Unknown] hydrocodone-acetaminophen 1 tab PO Q6H PRN 3 Days #10 tab 07/27/21 [Rx Last Taken Unknown] ketorolac 10 mg PO Q6H PRN 3 Days #10 tab 07/27/21 [Rx Last Taken Unknown] ondansetron 4 mg PO Q8H PRN #10 tab 07/27/21 [Rx Last Taken Unknown] tamsulosin [Flomax] 0.4 mg PO DAILY #7 cap 07/27/21 [Rx Last Taken Unknown] atorvastatin 20 mg PO DAILY 08/02/21 [History Last Taken Unknown] hydrocodone-acetaminophen 08/02/21 [History Last Taken Unknown] Allergy/AdvReac Type Severity Reaction Status Date / Time No Known Allergies Allergy Verified 08/02/21 10:15 Family History Father Heart disease Grandmother Heart disease Grandfather Heart disease Surgical History Hx of section Status post surgical removal of both fallopian tubes Social History Smoking Status: Current every day smoker tobacco type: cigarettes alcohol intake: current alcohol intake frequency: holidays/special occasions only ROS ROS ED Constitutional Constitutional ED: Denies chills or fever(s) Eyes Eyes: Denies change in vision ENT ENT ED: Denies sore throat Cardiovascular Cardiovascular: Denies chest pain Respiratory/Chest Respiratory/Chest: Denies cough or dyspnea Gastrointestinal Gastrointestinal: Reports abdominal pain and nausea; Denies diarrhea or vomiting Genitourinary Genitourinary ED: Reports hematuria; Denies dysuria Musculoskeletal Musculoskeletal: Reports back pain Integumentary Denies rash Neurologic Neurologic: Denies headache(s) or weakness Allergic/Immunologic Allergic/Immunologic ED: Denies urticaria EXAM Physical Exam Const Vital Signs: 08/02/21 10:12 08/02/21 10:55 08/02/21 12:32 Temperature 97.1 F L Temperature Source Temporal Pulse Rate 91 Respiratory Rate 16 18 16 Blood Pressure 148/80 H Blood Pressure Mean 102 Pulse Ox 98 Oxygen Delivery Method Room Air Positive well nourished and well developed General Appearance ED: well developed Eyes EOMs intact bilaterally Neck supple Chest Wall inspection of chest normal and palpation of chest normal Resp normal respiratory effort and clear to auscultation bilaterally Cardio regular rate and regular rhythm GI non-tender Auscultation: hypoactive bowel sounds Palpation: soft Back/Spine General Back: CVA tenderness right Extremity normal to inspection Neuro oriented x3 Sensorium / Orientation: alert Psych mental status grossly normal Skin no rashes or lesions noted MDM MDM MDM Narrative Medical decision making narrative: Lab work, urinalysis, KUB obtained. Patient was given morphine, Toradol, Zofran. Lab Data Attestation: I reviewed the patient's lab results. Labs: Laboratory Results - last 24 hr 08/02/21 08/02/21 08/02/21 10:23 10:25 10:25 WBC 14.2 H RBC 4.85 Hgb 14.3 Hct 43.5 MCV 89.7 MCH 29.5 MCHC 32.9 RDW Std Deviation 45.1 H RDW Coeff of Jessica 13.6 Plt Count 378 MPV 10.6 Immature Gran % (Auto) 0.400 Neut % (Auto) 76.8 H Lymph % (Auto) 12.1 L [place] % (Auto) 8.6 Eos % (Auto) 1.5 Baso % (Auto) 0.6 Absolute Neuts (auto) 10.9 H Absolute Lymphs (auto) 1.73 Nucleated RBC % 0 Sodium 137 Potassium 3.9 Chloride 106 Carbon Dioxide 25.0 Anion Gap 6 BUN 15 Creatinine 0.94 Estim Creat Clear Calc 61.20 Est GFR (MDRD) Af Amer 83 Est GFR (MDRD) Non-Af 68 BUN/Creatinine Ratio 16.0 Glucose 99 Calcium 8.9 Serum , Qual NEGATIVE Urine Color Urine Clarity Urine pH Ur Specific [place] Urine Protein Urine Glucose (UA) Urine Ketones Urine Occult Blood Urine Nitrite Urine Bilirubin Urine Urobilinogen Ur Leukocyte Esterase Urine RBC Urine WBC Ur Squamous Epith Cells Urine Bacteria Urine Mucus 08/02/21 11:35 WBC RBC Hgb Hct MCV MCH MCHC RDW Std Deviation RDW Coeff of Jessica Plt Count MPV Immature Gran % (Auto) Neut % (Auto) Lymph % (Auto) [place] % (Auto) Eos % (Auto) Baso % (Auto) Absolute Neuts (auto) Absolute Lymphs (auto) Nucleated RBC % Sodium Potassium Chloride Carbon Dioxide Anion Gap BUN Creatinine Estim Creat Clear Calc Est GFR (MDRD) Af Amer Est GFR (MDRD) Non-Af BUN/Creatinine Ratio Glucose Calcium Serum , Qual Urine Color Yellow Urine Clarity Cloudy Urine pH 7.0 Ur Specific [place] 1.010 Urine Protein 100 H Urine Glucose (UA) Normal Urine Ketones Negative Urine Occult Blood 150 H Urine Nitrite Negative Urine Bilirubin Negative Urine Urobilinogen 1 H Ur Leukocyte Esterase 500 H Urine RBC 5-10 SEEN Urine WBC 50-100 SEEN Ur Squamous Epith Cells 0-5 SEEN Urine Bacteria 3+ Urine Mucus 0 SEEN Radiography Diagnostic Testing: Radiology Impression KUB X-Ray 08/02/21 11:13 IMPRESSION: Small calcification in the pelvic region could be due to phlebolith or ureteral stone. Electronically Signed: Fidel Cervantes MD at 12:08 EDT Tel , Service support , Treatment and Re-Evaluation Comments:: Patient had a 3 mm stone at the right UVJ noted on CT scan on the . There is a calcified region in the pelvis that could be a phlebolith or ureteral stone. Patient now has evidence of urinary infection with 50-100 white cells with 3+ bacteria. Urine culture will be sent. She is given a dose of Rocephin. I spoke with Dr. Parker. He will come in with plans to take the patient to the OR for stent. Discharge Plan Triage Chief Complaint: Flank Pain ED Provider: Bere Lester Dx/Rx/DC Orders Clinical Impression: Ureterolithiasis, UTI (urinary tract infection) Prescriptions: No Action sertraline 50 mg tablet PO Qty: 90 RF: 0 tizanidine 4 mg capsule 4 mg PO Q8H PRN (Reason: muscle spasticity) Qty: 30 RF: 0 sulfamethoxazole-trimethoprim [Bactrim DS] 800-160 mg tablet 1 tab PO BID Qty: 10 RF: 0 lorazepam 1 MG tablet 1 mg PO DAILY PRN PRN (Reason: Anxiety) RF: 0 tamsulosin 0.4 MG capsule 0.4 mg PO DAILY Qty: 7 RF: 0 ondansetron 4 MG tablet 4 mg PO Q8H PRN PRN (Reason: Nausea) Qty: 10 RF: 0 hydrocodone-acetaminophen 5-325 mg tablet 1 tab PO Q6H PRN (Reason: pain) 3 Days Qty: 10 RF: 0 ketorolac 10 mg tablet 10 mg PO Q6H PRN (Reason: pain) 3 Days Qty: 10 RF: 0 ondansetron 4 mg tablet,disintegrating 4 mg PO Q8H PRN (Reason: nausea and vomiting) Qty: 10 RF: 0 tamsulosin [Flomax] 0.4 mg capsule 0.4 mg PO DAILY Qty: 7 RF: 0 atorvastatin 20 mg tablet 20 mg PO DAILY RF: 0 hydrocodone-acetaminophen 5-325 mg tablet RF: 0 Primary Care Provider: Steffi Thakur Referrals: Steffi Thakur MD [Primary Care Provider] - Disposition Disposition: Acute Care [facility]
[2021-08-02] MEDS: Ondansetron 4 MG/2 ML Vial IV (10:49)
[2021-08-02] MEDS: Morphine 4 MG/ML Syringe IV ×2 (10:50→13:53)
[2021-08-02 10:52] LABS: Absolute Lymphocyte Count 1.73 X10^3/uL (0.83-4.51); Absolute Neutrophil Count 10.9 X10^3/uL (2.0-7.7); Basophil# 0.09 X10^3/uL; Basophil% 0.6 % (0-1); Eosinophil# 0.21 X10^3/uL; Eosinophils% 1.5 % (0-5); Hematocrit 43.5 % (37-47); Hemoglobin 14.3 g/dL (12.0-15.0); Lymphocyte # 1.73 X10^3/ul (0.83-4.51); Lymphocyte % 12.1 % (19-41); Mean Corp Hgb Conc 32.9 g/dL (32-36); Mean Corpuscular Hgb 29.5 pg (27.0-32.0); Mean Corpuscular Volume 89.7 fL (81-99); Mean Platelet Vol. 10.6 fl (6.2-12.0); Monocyte# 1.22 X10^3/uL; Monocyte% 8.6 % (0-10); NRBC Flagged by Analyzer 0 % (0-5); Neutrophil # 10.94 X10^3/uL (2.7-7.7); Neutrophil % 76.8 % (47-70); Platelet Count 378 K/mm3 (150-450); RBC Distribution Width CV 13.6 % (11.6-14.6); RBC Distribution Width SD 45.1 fl (35.1-43.9); Red Blood Count 4.85 M/mm3 (4.2-5.4); White Blood Count 14.2 K/mm3 (4.4-11.0)
[2021-08-02] MEDS: Ketorolac 30 MG/ML Syringe IV ×2 (10:53→15:19)
[2021-08-02] MEDS: 0.9% Normal Saline 1,000 ML 150 ML IV (10:55)
[2021-08-02 11:01] LABS: Anion Gap 6 (5-15); BUN 15 mg/dL (7-18); Calcium,Total 8.9 mg/dL (8.5-10.1); Chloride 106 mmol/L (98-107); Creatinine, Serum 0.94 mg/dL (0.55-1.02); EST Glomerular Filtration Rate 68 mL/min (>60); Est Glom Filt Rate - Afr Amer 83 mL/min (>60); Glucose 99 mg/dL (74-106); Potassium 3.9 mmol/L (3.5-5.1); Sodium Level 137 mmol/L (136-145)
[2021-08-02 11:13] LABS: Internal QC Validated? YES +Cl - CLEAR BKGD; Pregnancy, Serum, hCG Quali. NEGATIVE Negative
--- NOTE | 2021-08-02 11:13 | RAD_ITS ---
STUDY: X-RAY - ABDOMEN/PELVIS REASON FOR EXAM: Female, 46 years old. Flank pain -- known right UVJ stone TECHNIQUE: Single AP view of the abdomen / pelvis. COMPARISON: None. FINDINGS: Nonspecific gaseous small bowel loops and colon. Mild fecal retention. The visualized liver, spleen and kidneys are grossly normal in size. Small calcification in the pelvic region could be due to phleboliths or ureteral stone. Normal visualized osseous structures. RAD/Abdomen Single View (Portable) IMPRESSION: Small calcification in the pelvic region could be due to phlebolith or ureteral stone. Electronically Signed: Fidel Cervantes MD at 12:08 EDT Tel , Service support ,
[2021-08-02 11:42] LABS: Mucous, Urine 0 SEEN /hpf (<or=2+)
[2021-08-02 11:43] LABS: Color, Urine Yellow (Yellow); Glucose, Dipstick Normal (Normal); Ketone-Dipstick Negative (Negative); Leukocyte Esterase-Dipstick 500 /ul (Negative); Nitrite-Dipstick Negative (Negative); Occult Blood-Urine 150 /ul (Negative); Protein-Dipstick 100 mg/dl (Negative); Urine Bilirubin Dipstick Negative (Negative); Urine Clarity Cloudy (Clear); Urine Urobilinogen 1 mg/dl (Normal)
[2021-08-02 11:53] LABS: Bacteria 3+ /hpf (None Seen); Red Blood Cells-Urine 5-10 SEEN /hpf (0-5); Squamous Epithelial Cells - UA 0-5 SEEN /hpf (5-10); White Blood Cells 50-100 SEEN /hpf (0-5)
--- NOTE | 2021-08-02 13:40 | NURSING ---
MED SURG AFTER SURGERY RIVERA KIDNEY STONE, UTI
[2021-08-02] MEDS: Ceftriaxone 1 GM/50 ML BAG IV (13:53)
--- NOTE | 2021-08-02 14:06 | PCM.CONS.U ---
Assessment & Plan Assessment/Plan (1) Ureterolithiasis: PLAN: plan for Right ureteroscopy basket of stone possible stent. HPI Consult Data Date of Consult: 08/02/21 HPI Narrative HPI Narrative: CHARBEL TURCIOS, is a 46 F who presents with severe pain from right distal ureteral calculi, 2nd time in ER and not been able to pass stone spontaneoulsy, faily conservative measures patient agreeable with intervention. PFS Medical History Kidney stones Home Medications lorazepam 1 mg PO DAILY PRN PRN 11/28/17 [History Last Taken Unknown] sertraline 50 mg tablet PO #90 tab 07/20/19 [History Last Taken Unknown] tizanidine 4 mg capsule 4 mg PO Q8H PRN #30 cap 08/01/20 [Rx Last Taken Unknown] sulfamethoxazole 800 mg-trimethoprim 160 mg tablet 1 tab PO BID #10 tab 01/18/21 [Rx Last Taken Unknown] ondansetron 4 mg PO Q8H PRN PRN #10 tablet 01/30/21 [Rx Last Taken Unknown] tamsulosin 0.4 mg PO DAILY #7 capsule 01/30/21 [Rx Last Taken Unknown] hydrocodone-acetaminophen 1 tab PO Q6H PRN 3 Days #10 tab 07/27/21 [Rx Last Taken Unknown] ketorolac 10 mg PO Q6H PRN 3 Days #10 tab 07/27/21 [Rx Last Taken Unknown] ondansetron 4 mg PO Q8H PRN #10 tab 07/27/21 [Rx Last Taken Unknown] tamsulosin [Flomax] 0.4 mg PO DAILY #7 cap 07/27/21 [Rx Last Taken Unknown] atorvastatin 20 mg PO DAILY 08/02/21 [History Last Taken Unknown] hydrocodone-acetaminophen 08/02/21 [History Last Taken Unknown] Allergy/AdvReac Type Severity Reaction Status Date / Time No Known Allergies Allergy Verified 08/02/21 10:15 Family History Father Heart disease Grandmother Heart disease Grandfather Heart disease Surgical History Hx of section Status post surgical removal of both fallopian tubes Social History Smoking Status: Current every day smoker tobacco type: cigarettes alcohol intake: current alcohol intake frequency: holidays/special occasions only ROS Constitutional Constitutional: Denies chills, fever(s) or malaise Eyes Eyes: Denies blurry vision or change in vision ENT HEENT: Reports none Cardiovascular Cardiovascular: Denies chest pain or palpitations Respiratory/Chest Respiratory/Chest: Denies cough or shortness of breath with exertion Gastrointestinal Gastrointestinal: Denies abdominal pain, constipation or diarrhea Musculoskeletal Musculoskeletal: Denies back pain, joint stiffness or joint swelling Integumentary Integumentary: Denies dry skin, jaundice, lesions or rash Neurologic Neurologic: Denies confusion, syncope or weakness Psychiatric Psychiatric: Reports none; Denies anxiety or depression Endocrine Endocrinology: Denies excessive sweating, fatigue or flushing Hematologic/Lymphatic Hematologic/Lymphatic: Denies anemia, easy bleeding or easy bruising Physical Exam Const alert and oriented x3 General Appearance: cooperative HEENT normocephalic, head/scalp atraumatic, EAC's normal and TM's normal bilaterally Eyes PERRL and EOMs intact bilaterally Pupil: sluggish Neck no lymphadenopathy, supple and no JVD General: trachea midline Lymph Lymphatic: no lymphadenopathy noted, lymphedema and lymphadenopathy Resp normal respiratory effort, normal air movement and clear to auscultation bilaterally Cardio regular rate, regular rhythm and peripheral pulses 2+ throughout GI soft to palpation, non-tender and non-distended Extremity normal capillary refill and no clubbing, cyanosis or edema General Extremity: no tenderness to palpation of joints or extremities Skin no rashes or lesions noted General Skin Exam: turgor normal Lesions: no lesions Rashes: no rashes Neuro CN's II-XII intact bilaterally Speech: speech normal Motor Exam: strength 5/5 throughout; Negative for general weakness Psych thought process normal, cooperative and affect normal Appearance: appropriate Lab / Micro Data Result Diagrams: 08/02/21 10:25 08/02/21 10:25 Labs: Laboratory Results - last 24 hr 08/02/21 10:23: Serum , Qual NEGATIVE 08/02/21 10:25: WBC 14.2 H, RBC 4.85, Hgb 14.3, Hct 43.5, MCV 89.7, MCH 29.5, MCHC 32.9, RDW Std Deviation 45.1 H, RDW Coeff of Jessica 13.6, Plt Count 378, MPV 10.6, Immature Gran % (Auto) 0.400, Neut % (Auto) 76.8 H, Lymph % (Auto) 12.1 L, [place] % (Auto) 8.6, Eos % (Auto) 1.5, Baso % (Auto) 0.6, Absolute Neuts (auto) 10.9 H, Absolute Lymphs (auto) 1.73, Nucleated RBC % 0 08/02/21 10:25: Sodium 137, Potassium 3.9, Chloride 106, Carbon Dioxide 25.0, Anion Gap 6, BUN 15, Creatinine 0.94, Estim Creat Clear Calc 61.20, Est GFR (MDRD) Af Amer 83, Est GFR (MDRD) Non-Af 68, BUN/Creatinine Ratio 16.0, Glucose 99, Calcium 8.9 08/02/21 11:35: Urine Color Yellow, Urine Clarity Cloudy, Urine pH 7.0, Ur Specific [place] 1.010, Urine Protein 100 H, Urine Glucose (UA) Normal, Urine Ketones Negative, Urine Occult Blood 150 H, Urine Nitrite Negative, Urine Bilirubin Negative, Urine Urobilinogen 1 H, Ur Leukocyte Esterase 500 H, Urine RBC 5-10 SEEN, Urine WBC 50-100 SEEN, Ur Squamous Epith Cells 0-5 SEEN, Urine Bacteria 3+, Urine Mucus 0 SEEN Radiology Impression KUB X-Ray 08/02/21 11:13 IMPRESSION: Small calcification in the pelvic region could be due to phlebolith or ureteral stone. Electronically Signed: Fidel Cervantes MD at 12:08 EDT Tel , Service support ,
--- NOTE | 2021-08-02 14:10 | PCM.DC ---
Discharge Instructions Diet Discharge Diet: No restrictions Activity Discharge Activity: Return to Normal Activity and May Not Drive (while taking narcotic pain medications.) Dressing / Incision Call your doctor if you observe: Fever of 101 or Higher Follow Up Care Please Follow Up With: Isael Parker MD When: Call [phone] for an appointment Test Results: Test results from this visit will be discussed in further detail at your follow-up appointment, if applicable. Discharge Plan Admission Admit Date/Time: 08/02/21 13:45 Primary Reason for Your Visit: removal of stone Attending Provider: Isael Parker Primary Care Provider: Steffi Thakur Instructions Patient Instructions: Kidney Stones Surg Discharge Orders/Prescriptions Prescriptions: No Action sertraline 50 mg tablet PO Qty: 90 RF: 0 tizanidine 4 mg capsule 4 mg PO Q8H PRN (Reason: muscle spasticity) Qty: 30 RF: 0 sulfamethoxazole-trimethoprim [Bactrim DS] 800-160 mg tablet 1 tab PO BID Qty: 10 RF: 0 lorazepam 1 MG tablet 1 mg PO DAILY PRN PRN (Reason: Anxiety) RF: 0 tamsulosin 0.4 MG capsule 0.4 mg PO DAILY Qty: 7 RF: 0 ondansetron 4 MG tablet 4 mg PO Q8H PRN PRN (Reason: Nausea) Qty: 10 RF: 0 hydrocodone-acetaminophen 5-325 mg tablet 1 tab PO Q6H PRN (Reason: pain) 3 Days Qty: 10 RF: 0 ketorolac 10 mg tablet 10 mg PO Q6H PRN (Reason: pain) 3 Days Qty: 10 RF: 0 ondansetron 4 mg tablet,disintegrating 4 mg PO Q8H PRN (Reason: nausea and vomiting) Qty: 10 RF: 0 tamsulosin [Flomax] 0.4 mg capsule 0.4 mg PO DAILY Qty: 7 RF: 0 atorvastatin 20 mg tablet 20 mg PO DAILY RF: 0 hydrocodone-acetaminophen 5-325 mg tablet RF: 0 Referrals / Follow Up: Steffi Thakur MD [Primary Care Provider] - Isael Parker MD [STAFF PHYSICIAN] - Disposition Discharge Orders: Discharge Patient (Routine); Ordered 08/02/21 Ordered By: Dr. Isael Parker
--- NOTE | 2021-08-02 14:47 | OP.PCM_ITS ---
Problems Associated Problem List Diagnoses (1) Ureterolithiasis: (2) UTI (urinary tract infection): Report of Operation Date of Procedure: 08/02/21 Pre-Operative Diagnosis: Right distal ureteral calculi and urinary tract infection Post-Operative Diagnosis: The same plus right distal ureteral calculi and pyelonephritis Surgery/Procedure Performed:: Cystoscopy and right stent placement Description of Surgical Findings:: Indication is a 46-year-old female presented to the emergency room for the second time with severe pain in the right side she has a 3 mm stone in the distal right ureter that she is failed to pass she also elevated white blood count the urine looked infected with bacteria and white blood cells and today were to take her to surgery as an add-on from the emergenc y room. She presented to the emergency room with severe pain or taken her surgery because of the urgent nature of her pain and also apparent infection. Patient was taken back to the operating room at the smooth induction of general anesthesia she was placed in dorsolithotomy position. The urethra vaginal area were prepped and draped in usual sterile fashion. Went into the bladder with a 21 English rigid cystourethroscope inside the bladder seemed pretty inflamed. Identified the right ureteral orifice advanced a wire up the ureter and immediately encountered resistance from the stone and then after some minor manipulation was able get past the stone and then immediately had a lot of purulent urine coming down from the right kidney consistent with pyelonephritis. So because it is active infection I decided not to proceed with ureteroscopy extraction of stone since it would not be safe I then advanced a wire up into the kidney over the wire I then placed a stent it was a 6 English by 26 cm stent stent coiled in the bladder and up in the kidney in good position and then once it was coiled properly I drained the bladder we did send off the urine for culture should be given 7 days of antibiotics or go home today with antibiotics and pain medicine. She will be set up for an outpatient procedure to laser and remove the stone and stent. Surgeon: rosa Type of Anesthesia: General Drains: stent right 6 fr x 26 cm Admit VTE Documentation VTE Present on Admission: No VTE Mechan Device Prophylaxis: SCD's
[2021-08-02] MEDS: oxyCODONE 5 MG Tablet PO (15:36)
== END 2021-08-02 15:55 ==
LOC: ED 13:33 → SDC 16:31 → AC 16:33
PROVIDERS: Emergency Provider Emergency Medicine; PCP Family Medicine; Visit Provider Urology
PROC: (CPT 52332; principal; 2021-08-02 13:45)
DX: N20.1 Calculus of ureter (principal); F17.210 Nicotine dependence, cigarettes, uncomplicated
CPT/HCPCS: 00910; 52332; 74018; 80048; 81001; 84703; 85025; 87077; 87086; 87088; 87186; 87426; 99284; J7030; A4216; C1769; C2617; J2405

== ENCOUNTER → 2021-08-10 14:15 | Outpatient (CLI) | payer BC, SELFPAY | PROVIDERS: PCP Family Medicine; Referring Provider Urology; Visit Provider Urology | DX: Z03.818 Encounter for observation for suspected exposure to other biological agents ruled out (principal) | CPT/HCPCS: 87635; C9803; U0005; U0003 ==

== ENCOUNTER → 2021-08-14 | Outpatient (CLI) | payer BC, SELFPAY ==
--- NOTE | 2021-08-14 12:10 | CALC_PTH ---
PATIENT: CHARBEL TURCIOS LOC: [facility] U#:[id number] AGE/SX: 46/F ROOM: RE08/14/[address]: Dr. Isael Parker MD : 1975 BED: DIS: 08/14/2021 SPEC #: [id number] RECD: 08/14/21 14:58 STATUS: YAW REDevendra #: [id number] GINA: 08/14/21 12:[address]: Isael Parker DEPT: SURGICAL PATHOLOGY RECD BY: Janiya Chavez ENTERED: 08/17/21 09:02 SP TYPE: Calculi OTHR DR: Dr. Steffi Thakur MD [facility] Tissues: CALCULI Procedures: Surgery Specimen Level I HEADER OPERATION: Right ureteroscopy, basket of stone, right ureteral stent removal PRE-OP DIAGNOSIS: Small calcification in pelvic region TISSUE SUBMITTED: Right ureteral calculi GROSS DIAGNOSIS Right ureteral calculi, removal: Fragments of unremarkable calculi (gross diagnosis only). AM:giovanni 08/18/2021 COMMENT If chemical analysis is requested on this specimen, please notify the laboratory. GROSS DESCRIPTION Received without fixative labeled with the patient's name and designated right ureteral calculi. The specimen consists of multiple fragments of erazo stone measuring 0.3 x 0.2 x 0.1 cm. The entire specimen is saved if stone analysis is requested. / AM:giovanni 08/17/21 CPT: 90753
== END | disposition home or self-care (01) ==
LOC: LABSPEC 15:09
PROVIDERS: PCP Family Medicine; Referring Provider Urology; Visit Provider Urology
DX: N20.1 Calculus of ureter (principal)
CPT/HCPCS: 88300

== ENCOUNTER → 2022-08-18 | Outpatient (CLI) | payer BC, SELFPAY ==
[2022-08-18 12:26] LABS: Absolute Neutrophil Count 4.1 X10^3/uL (2.0-7.7); Basophil# 0.11 X10^3/uL; Basophil% 1.4 % (0-1); Eosinophil# 0.32 X10^3/uL; Eosinophils% 4.1 % (0-5); Hematocrit 44.6 % (37-47); Hemoglobin 14.6 g/dL (12.0-15.0); Lymphocyte % 32.4 % (19-41); Mean Corp Hgb Conc 32.7 g/dL (32-36); Mean Corpuscular Hgb 29.4 pg (27.0-32.0); Mean Corpuscular Volume 89.9 fL (81-99); Mean Platelet Vol. 11.5 fl (6.2-12.0); Monocyte# 0.66 X10^3/uL; Monocyte% 8.5 % (0-10); NRBC Flagged by Analyzer 0 % (0-5); Neutrophil % 53.2 % (47-70); Platelet Count 343 K/mm3 (150-450); RBC Distribution Width CV 13.9 % (11.6-14.6); RBC Distribution Width SD 46.1 fl (35.1-43.9); Red Blood Count 4.96 M/mm3 (4.2-5.4); White Blood Count 7.7 K/mm3 (4.4-11.0)
[2022-08-18 12:55] LABS: Progesterone Level 7.73 ng/mL (See Comment); Vitamin B12 217 pg/mL (211-911); Vitamin D,25 Hydroxy 20.7 ng/mL
[2022-08-18 12:57] LABS: ALB/GLOB Ratio 0.9 RATIO (0.9-2.4); AST(SGOT) 14 U/L (15-37); Alanine Aminotransfer ALT/SGPT 35 U/L (13-56); Albumin, Serum 3.5 g/dL (3.2-5.0); Alkaline Phosphatase 83 U/L (45-117); Anion Gap 5 (5-15); BUN 12 mg/dL (7-18); BUN/Creat Ratio 15.9 RATIO (10-20); Calcium,Total 8.7 mg/dL (8.5-10.1); Chloride 108 mmol/L (98-107); Cholesterol 249 mg/dL (200); Creatinine, Serum 0.76 mg/dL (0.55-1.02); EST Glomerular Filtration Rate 87 mL/min (>60); Est Glom Filt Rate - Afr Amer 105 mL/min (>60); Estradiol 116.1 pg/mL; Globulin 3.7 g/dL (2.2-4.2); Glucose 87 mg/dL (74-106); High Density Lipoprotein 46 mg/dL; Potassium 4.1 mmol/L (3.5-5.1); Protein, Total 7.2 g/dL (6.4-8.2); Sodium Level 138 mmol/L (136-145); Thyroid Stim Hormone (TSH) 3.22 uIU/mL (0.358-3.74); Triglycerides 167 mg/dL; Very Low Density Lipoprotein 33 mg/dL (5-40)
[2022-08-18 14:37] LABS: Hemoglobin A1c 5.5 % (3.8-5.6)
== END | disposition home or self-care (01) ==
LOC: BFHLAB 08:37
PROVIDERS: PCP Family Medicine; Visit Provider Family Medicine
DX: R53.83 Other fatigue (principal); F32.9 Major depressive disorder, single episode, unspecified; E78.00 Pure hypercholesterolemia, unspecified
CPT/HCPCS: 36415; 80053; 80061; 82306; 82607; 82670; 83001; 83036; 84144; 84443; 85025

== ENCOUNTER → 2022-09-16 | Outpatient (CLI) | payer OTHER, SELFPAY ==
[2022-09-24 12:08] LABS: Age Gdln ACOG Testing 30-65 (.)
[2022-09-24 15:16] LABS: HPV APTIMA, High Risk Negative (Negative)
[2022-09-24 15:17] LABS: HPV Reflexed? YES, CHARGE PATIENT
== END | disposition home or self-care (01) ==
LOC: LABSPEC 09-17 09:41
PROVIDERS: PCP Family Medicine; Visit Provider Family Medicine
DX: Z12.4 Encounter for screening for malignant neoplasm of cervix (principal); Z01.419 Encounter for gynecological examination (general) (routine) without abnormal findings
CPT/HCPCS: 87624; 88175; G0145

== ENCOUNTER → 2022-10-21 | Outpatient (CLI) | payer OTHER, SELFPAY ==
--- NOTE | 2022-10-21 15:04 | BI_ITS ---
MAMMOGRAPHY - BILATERAL SCREENING REASON FOR EXAM: Female, 47 years old. Routine annual screening examination. PERTINENT HISTORY: Aunt with breast cancer. TECHNIQUE: Digital bilateral breast román (3D mammographic acquisition) in the CC and MLO projections. 2-D mediolateral oblique (MLO) and craniocaudad (CC) views of both breasts were obtained. CAD: Full Field Digital Mammography with Computer Added Detection was performed. COMPARISON: None. Baseline examination. FINDINGS: Breast Composition: There are scattered areas of fibroglandular density. There are no dominant masses or suspicious calcifications. No other significant abnormalities are identified. There has been no significant change since the prior study. BI/SCRN MAMM (CAD)W/ROMÁN BILAT IMPRESSION: Stable bilateral screening mammogram. Yearly follow-up mammogram recommended. (A) ASSESSMENT CATEGORY: BIRADS Category 1: Negative. A letter regarding these results will be sent to the patient by the facility within 30 days. Approximately 10% of breast cancers are not detected by mammography. A normal mammogram should not delay biopsy of a clinically suspicious abnormality. [id number] Electronically Signed: Denis Antoine MD at 8:19 EST ,
== END | disposition home or self-care (01) ==
LOC: OPBI 15:01
PROVIDERS: PCP Family Medicine; Visit Provider Family Medicine
DX: Z12.31 Encounter for screening mammogram for malignant neoplasm of breast (principal); Z80.3 Family history of malignant neoplasm of breast
CPT/HCPCS: 77063; 77067

== ENCOUNTER → 2023-06-17 | Outpatient (CLI) | payer OTHER, SELFPAY ==
[2023-06-17 17:19] LABS: Absolute Lymphocyte Count 3.28 X10^3/uL (0.83-4.51); Absolute Neutrophil Count 6.1 X10^3/uL (2.0-7.7); Basophil# 0.14 X10^3/uL; Basophil% 1.3 % (0-1); Eosinophils% 3.7 % (0-5); Hematocrit 44.1 % (37-47); Hemoglobin 14.7 g/dL (12.0-15.0); Lymphocyte # 3.28 X10^3/ul (0.83-4.51); Lymphocyte % 30.4 % (19-41); Mean Corp Hgb Conc 33.3 g/dL (32-36); Mean Corpuscular Hgb 29.2 pg (27.0-32.0); Mean Corpuscular Volume 87.5 fL (81-99); Mean Platelet Vol. 10.3 fl (6.2-12.0); Monocyte# 0.77 X10^3/uL; Monocyte% 7.1 % (0-10); NRBC Flagged by Analyzer 0 % (0-5); Neutrophil # 6.13 X10^3/uL (2.7-7.7); Neutrophil % 56.9 % (47-70); Platelet Count 380 K/mm3 (150-450); RBC Distribution Width CV 13.9 % (11.6-14.6); RBC Distribution Width SD 44.5 fl (35.1-43.9); Red Blood Count 5.04 M/mm3 (4.2-5.4); White Blood Count 10.8 K/mm3 (4.4-11.0)
[2023-06-17 17:58] LABS: Vitamin B12 > 2000 pg/mL (211-911); Vitamin D,25 Hydroxy 32.8 ng/mL
[2023-06-17 18:00] LABS: ALB/GLOB Ratio 0.9 RATIO (0.9-2.4); AST(SGOT) 22 U/L (15-37); Alanine Aminotransfer ALT/SGPT 46 U/L (13-56); Albumin, Serum 3.6 g/dL (3.2-5.0); Alkaline Phosphatase 99 U/L (45-117); Anion Gap 8 (5-15); BUN 18 mg/dL (7-18); Calcium,Total 9.2 mg/dL (8.5-10.1); Chloride 106 mmol/L (98-107); Creatinine, Serum 0.78 mg/dL (0.55-1.02); EST Glomerular Filtration Rate 83 mL/min (>60); Est Glom Filt Rate - Afr Amer 101 mL/min (>60); Globulin 3.8 g/dL (2.2-4.2); Glucose 90 mg/dL (74-106); Potassium 3.7 mmol/L (3.5-5.1); Protein, Total 7.4 g/dL (6.4-8.2); Sodium Level 138 mmol/L (136-145); Thyroid Stim Hormone (TSH) 3.36 uIU/mL (0.358-3.74)
== END | disposition home or self-care (01) ==
PROVIDERS: PCP Family Medicine; Referring Provider Family Medicine; Visit Provider Family Medicine
DX: E53.8 Deficiency of other specified B group vitamins (principal); E55.9 Vitamin D deficiency, unspecified; R53.83 Other fatigue
CPT/HCPCS: 36415; 80053; 82306; 82607; 84443; 85025

== ENCOUNTER → 2023-07-25 | Outpatient (CLI) | payer OTHER, SELFPAY ==
--- NOTE | 2023-07-25 14:34 | RAD_ITS ---
STUDY: X-RAY CHEST REASON FOR EXAM: Female, 48 years old. Shortness of breath. TECHNIQUE: Frontal and lateral views of the chest. COMPARISON: None. FINDINGS: Mild hyperinflation. There is no demonstrated pleural abnormality. Borderline cardiomegaly. Normal mediastinum and tracey. Normal visualized pulmonary arteries. Normal visualized aortic arch and descending thoracic aorta. Normal visualized thoracic spine. Normal visualized ribs, clavicles, and shoulders. No abnormality of the visualized soft tissue structures of the upper abdomen. RAD/Chest PA and Lateral IMPRESSION: Borderline cardiomegaly with hyperinflation and no acute or active cardiopulmonary disease. Electronically Signed: Zbigniew Chen MD at 15:22 EDT ,
== END | disposition home or self-care (01) ==
LOC: RAD.FUTURE 14:36 → MTRAD 14:52
PROVIDERS: PCP Family Medicine; Referring Provider Family Medicine; Visit Provider Family Medicine
DX: R04.2 Hemoptysis (principal)
CPT/HCPCS: 71046

== ENCOUNTER → 2023-07-27 | Outpatient (CLI) | payer OTHER, SELFPAY | END | disposition home or self-care (01) | LOC: SL 09:57 | PROVIDERS: PCP Family Medicine; Referring Provider Family Medicine; Visit Provider Family Medicine | DX: G47.30 Sleep apnea, unspecified (principal) | CPT/HCPCS: 95806 ==

== ENCOUNTER → 2023-08-10 | Outpatient (CLI) | payer OTHER, SELFPAY ==
--- NOTE | 2023-08-10 16:51 | CT_ITS ---
INDICATION: HEMOPTYSIS. SMOKER EXAMINATION: CT CHEST WITH CONTRAST - CT Chest W/ Contrast Injection TECHNIQUE: Helically acquired images were obtained of the chest following IV contrast. A radiation dose optimization technique was used for this scan. IV Contrast dosage and agent: COMPARISON: None. FINDINGS: LUNGS, PLEURA AND LARGE AIRWAYS: No masses, consolidation, or edema. No pleural effusion or thickening. No pneumothorax. THYROID: No thyroid lesions. HEART AND PERICARDIUM: Heart size is normal. No pericardial effusion. VESSELS: Thoracic aorta is not dilated. No aortic dissection. No obvious central pulmonary embolism although this study was not performed with the pulmonary embolism protocol. MEDIASTINUM AND PRIYA: No mediastinal or hilar adenopathy. Esophagus is unremarkable. No hiatal hernia. UPPER ABDOMEN: No acute pathology. BONES: No suspicious lytic or blastic abnormality. CT/Chest WITH Contrast IMPRESSION: Negative contrast enhanced CT of the chest. Electronically Signed: Tyrone Hernandez MD at 20:00 EDT ,
[2023-08-10 17:14] LABS: CREATININE FINGERSTICK 1.2 mg/dL (0.55-1.02)
== END | disposition home or self-care (01) ==
PROVIDERS: PCP Family Medicine; Referring Provider Family Medicine; Visit Provider Family Medicine
DX: R04.2 Hemoptysis (principal)
CPT/HCPCS: 71260; Q9967

== ENCOUNTER → 2023-08-11 | Outpatient (CLI) | payer OTHER, SELFPAY | END | disposition home or self-care (01) | LOC: SL 08:59 | PROVIDERS: PCP Family Medicine; Visit Provider Family Medicine | DX: Z46.89 Encounter for fitting and adjustment of other specified devices (principal) ==

== ENCOUNTER → 2023-09-26 | Outpatient (CLI) | payer OTHER, SELFPAY ==
--- NOTE | 2023-09-26 14:43 | RAD_ITS ---
STUDY: X-RAY - SACRUM/COCCYX REASON FOR EXAM: Female, 48 years old. Fall down stairs in May. TECHNIQUE: 4 views of the sacrum and coccyx were obtained. COMPARISON: None. FINDINGS: Normal bilateral sacroiliac joints. Normal visualized sacral ala and fused sacral bodies. Normal sacrococcygeal junction with a normal angulation. Normal coccygeal segments. The presacral soft tissue structures are unremarkable. There is no demonstrated fracture or destructive osseous process. RAD/Sacrum-Coccyx min 2 Views IMPRESSION: Normal x-rays of the sacrum and coccyx. Electronically Signed: Mamadou Law MD at 15:24 EST ,
--- NOTE | 2023-09-26 14:55 | RAD_ITS ---
STUDY: X-RAY - LUMBAR SPINE REASON FOR EXAM: Female, 48 years old. FALL DOWN STAIRS IN MAY TECHNIQUE: 3 view(s) of the lumbar spine were obtained. COMPARISON: None FINDINGS: Normal lumbar lordosis. There is no substantial scoliosis. There is a normal alignment of the vertebrae. Normal vertebral bodies and endplates. Normal disc space heights. There is no demonstrated fracture. The soft tissue structures are unremarkable. RAD/Lumbar Spine 2 or 3 Views IMPRESSION: Normal x-ray examination of the lumbar spine. Electronically Signed: Tyrone Hernandez MD at 23:00 EST ,
== END | disposition home or self-care (01) ==
PROVIDERS: PCP Family Medicine; Referring Provider Family Medicine; Visit Provider Family Medicine
DX: M54.9 Dorsalgia, unspecified (principal)
CPT/HCPCS: 72100; 72220

== ENCOUNTER → 2024-08-16 | Outpatient (CLI) | payer OTHER, SELFPAY ==
[2024-08-16 18:07] LABS: Absolute Lymphocyte Count 2.88 X10^3/uL (0.83-4.51); Basophil# 0.13 X10^3/uL; Basophil% 1.2 % (0-1); Eosinophil# 0.44 X10^3/uL; Eosinophils% 4.1 % (0-5); Hemoglobin 14.4 g/dL (12.0-15.0); Lymphocyte # 2.88 X10^3/ul (0.83-4.51); Mean Corp Hgb Conc 32.7 g/dL (32-36); Mean Corpuscular Volume 88.5 fL (81-99); Mean Platelet Vol. 10.9 fl (6.2-12.0); Monocyte# 1.19 X10^3/uL; Monocyte% 11.2 % (0-10); NRBC Flagged by Analyzer 0 % (0-5); Neutrophil # 5.97 X10^3/uL (2.7-7.7); Neutrophil % 55.9 % (47-70); Platelet Count 386 K/mm3 (150-450); RBC Distribution Width CV 14.6 % (11.6-14.6); RBC Distribution Width SD 46.8 fl (35.1-43.9); Red Blood Count 4.97 M/mm3 (4.2-5.4); White Blood Count 10.7 K/mm3 (4.4-11.0)
[2024-08-16 18:29] LABS: Vitamin B12 430 pg/mL (211-911)
[2024-08-16 18:54] LABS: Ferritin 21 ng/mL (8-252); Iron 64 ug/dL (50-170); Iron Binding Capacity,Total 427 ug/dL (250-450)
== END | disposition home or self-care (01) ==
LOC: BFHLAB 14:51
PROVIDERS: PCP Family Medicine; Referring Provider Family Medicine; Visit Provider Family Medicine
DX: D64.9 Anemia, unspecified (principal); R53.83 Other fatigue
CPT/HCPCS: 36415; 82607; 82728; 82746; 83540; 83550; 84443; 85025

== ENCOUNTER → 2025-05-27 | Outpatient (CLI) | payer BC, SELFPAY ==
--- NOTE | 2025-05-27 15:41 | RAD_ITS ---
PROCEDURE: CHEST PA AND LATERAL 05/27/2025 REASON FOR EXAM: CHEST PAIN TECHNIQUE: CHEST PA AND LATERAL COMPARISON: Chest CT study dated 08/10/2023 and chest x-ray study dated 07/25/2023 FINDINGS: Hardware: None Heart: Heart size and configuration are within normal limits. Mediastinum: Pulmonary vasculature and hilar structures are unremarkable. Trachea is midline. Mediastinal silhouette is within normal limits. Lungs: Expanded and clear without evidence of atelectasis, consolidation, effusion or pneumonic infiltrate. There are no pneumothoraces. Bones: Very mild degenerative changes of the thoracic spine are noted. RAD/Chest PA and Lateral IMPRESSION: No acute cardiopulmonary process is identified radiographically. If the patien t's symptoms do continue or persist, a follow up chest x-ray is recommended. Reading Location: [id number]
--- NOTE | 2025-05-27 15:42 | RAD_ITS ---
EXAM: XR Right Foot Complete, 3 or More Views CLINICAL INDICATION: PAIN TECHNIQUE: Frontal, lateral and oblique views of the right foot. COMPARISON: No relevant prior studies available. FINDINGS: BONES/JOINTS: Unremarkable. No acute fracture. No dislocation. SOFT TISSUES: Soft tissue swelling. RAD/Foot min 3 Views IMPRESSION: Soft tissue swelling. [facility]
[2025-05-27 18:48] LABS: Hematocrit 43.7 % (37-47); Hemoglobin 14.6 g/dL (12.0-15.0); Immature Granulocytes Count 0.040 X10^3/uL (0.0-0.0); Mean Corp Hgb Conc 33.4 g/dL (32-36); Mean Corpuscular Volume 89.4 fL (81-99); Mean Platelet Vol. 11.2 fl (6.2-12.0); NRBC Flagged by Analyzer 0 % (0-5); Platelet Count 350 K/mm3 (150-450); RBC Distribution Width CV 13.7 % (11.6-14.6); RBC Distribution Width SD 44.7 fl (35.1-43.9); Red Blood Count 4.89 M/mm3 (4.2-5.4); White Blood Count 10.4 K/mm3 (4.4-11.0)
[2025-05-27 19:12] LABS: AST(SGOT) 17 U/L (<=31); Alanine Aminotransfer ALT/SGPT 28 U/L (<=34); Albumin, Serum 4.2 g/dL (3.5-5.0); Alkaline Phosphatase 90 U/L (35-104); Anion Gap 14 (5-15); BUN 11 mg/dL (4-19); BUN/Creat Ratio 10.5 RATIO (10-20); Calcium,Total 9.5 mg/dL (7.6-11.0); Carbon Dioxide 18.7 mmol/L (21.0-32.0); Chloride 103 mmol/L (98-108); Cholesterol 260 mg/dL (<=200); Globulin 2.8 g/dL (2.2-4.2); Glucose 81 mg/dL (70-99); Low Density Lipoprotein Calc. 174 mg/dL; Potassium 4.1 mmol/L (3.3-5.1); Triglycerides 188 mg/dL; Very Low Density Lipoprotein 38 mg/dL (5-40); cholesterol:hdl ratio screen 5.34
[2025-05-27 19:18] LABS: CRP < 3.00 mg/L (0.0-3.0); Pro- Brain NATRIURETIC PEPTIDE 41 pg/mL (<=900); Uric Acid 3.7 mg/dL (2.6-6.0)
[2025-05-29 14:08] LABS: ANTINUCLEAR ANTIBODIES DIRECT Negative (Negative)
== END | disposition home or self-care (01) ==
PROVIDERS: PCP Family Medicine; Referring Provider Nurse Practitioner Family; Visit Provider Nurse Practitioner Family
DX: Z00.01 Encounter for general adult medical examination with abnormal findings (principal); M25.50 Pain in unspecified joint; M79.674 Pain in right toe(s); R07.9 Chest pain, unspecified
CPT/HCPCS: 36415; 71046; 73630; 80053; 80061; 83880; 84550; 85025; 85652; 86038; 86140; 86200; 86431

== ENCOUNTER → 2025-06-28 | Outpatient (CLI) | payer BC, SELFPAY ==
--- NOTE | 2025-06-28 11:57 | ECHOD_ITS ---
Reason For Study Reason For Study: CHEST PAIN Procedure This was a 2D Doppler, Color Flow transthoracic echocardiogram. Exam performed in department. Left Ventricle Normal LV size. The left ventricular ejection fraction is 60 %. Stage 1 diastolic dysfunction. No regional wall motion abnormalities noted. Right Ventricle Normal RV size. Normal systolic function. Atria Normal left atrium. Normal right atrium. Mitral Valve Normal mitral valve. Tricuspid Valve Normal tricuspid valve. Mild tricuspid valve insufficiency. Pulmonary artery systolic pressure is 15 mmHg. Aortic Valve Normal aortic valve. Trisinus/trileaflet aortic valve. Pulmonic Valve Normal pulmonic valve. Great Vessels Normal aortic root. The pulmonary artery is normal size. Inferior vena cava collapse with respiration. Pericardium/Pleural No pericardial effusion. MMode/2D Measurements & Calculations LVIDd: 4.5 cm IVSd: 0.93 cm LVOT diam: 2.0 cm LVIDs: 2.9 cm LVPWd: 0.99 cm LVOT area: 3.1 cm2 RVDd: 3.6 cm FS: 35.6 % asc Aorta Diam: 3.5 cm LAV(MOD-bp): 24.9 ml LVAd ap4: 19.5 cm2 LAV(MOD-bp) Indexed: 12.9 ml/m2 LVLd ap4: 6.8 cm LAV(MOD-sp2): 25.5 ml EDV(MOD-sp4): 45.9 ml LAV(MOD-sp4): 24.8 ml EDV(sp4-el): 47.2 ml LVAs ap4: 11.1 cm2 LVLs ap4: 5.8 cm ESV(MOD-sp4): 17.6 ml ESV(sp4-el): 17.7 ml EF(MOD-sp4): 61.8 % EF(sp4-el): 62.4 % LVAd ap2: 20.5 cm2 SV(MOD-sp4): 28.3 ml SV(MOD-sp2): 33.2 ml LVLd ap2: 7.0 cm SI(MOD-sp4): 14.7 ml/m2 SI(MOD-sp2): 17.2 ml/m2 EDV(MOD-sp2): 49.9 ml EDV(sp2-el): 51.1 ml LVAs ap2: 10.4 cm2 LVLs ap2: 5.6 cm ESV(MOD-sp2): 16.7 ml ESV(sp2-el): 16.4 ml EF(MOD-sp2): 66.5 % SV(sp4-el): 29.5 ml Ao sinus diam: 3.0 cm LA A4 area: 12.0 cm2 LA dimension(2D): 3.5 cm RA A4 area: 9.3 cm2 TAPSE: 1.9 cm Time Measurements MV dec time: 0.18 sec Doppler Measurements & Calculations MV E max agapito: 71.1 cm/sec Lat Peak E' Agapito: 9.9 cm/sec Med Peak E' Agapito: 9.1 cm/sec MV A max agapito: 80.4 cm/sec E/E' lat: 7.2 E/E' med: 7.8 MV E/A: 0.88 Ao V2 max: 163.7 cm/sec LV V1 max: 115.6 cm/sec MV dec slope: 388.9 cm/sec2 Ao max P.7 mmHg LV V1 max P.3 mmHg Ao V2 mean: 113.9 cm/sec LV V1 mean P.1 mmHg Ao mean P.8 mmHg LV V1 mean: 99.5 cm/sec Ao V2 VTI: 29.6 cm LV V1 VTI: 23.9 cm AV (velocity ratio): 0.81 STANLEY(I,D): 2.5 cm2 STANLEY(V,D): 2.2 cm2 SV(LVOT): 74.4 ml PA V2 max: 96.8 cm/sec TR max agapito: 176.7 cm/sec TR max P.5 mmHg ECHO/Echo Complete Interpretation Summary Normal LV size. The left ventricular ejection fraction is 60 %. Stage 1 diastolic dysfunction. Structurally normal valves. Ordering Physician: Davida Clifton Referring Physician: Davida Clifton Performed By: Kandice Blank RDCS
--- NOTE | 2025-06-28 18:52 | STRESSREP ---
Stress Test Report Exercise stress test. 50-year-old lady with a history of chest pain. Stress protocol: Resting EKG demonstrates normal sinus rhythm with a rate of 72 bpm resting blood pressure is 116/70 mmHg. The patient exercised according to the regular Sky protocol for a total duration of 8 minutes attaining a maximum heart rate of 144 bpm which was 85% of maximum predicted heart rate; the maximum workload was 10.1 metabolic equivalents. At rest there were no ST or T wave changes noted to suggest ischemia and at peak exercise upsloping ST changes only were noted which did not meet the criteria for ischemia. No clinical angina was noted the test was terminated due to the target heart rate being achieved/fatigue. The peak blood pressure was 162/60 mmHg. Rate-pressure product was 15,000. Conclusion: Stress test with no EKG criteria for ischemia at a high workload
== END | disposition home or self-care (01) ==
PROVIDERS: PCP Family Medicine; Referring Provider Nurse Practitioner Family; Visit Provider Nurse Practitioner Family
DX: R07.9 Chest pain, unspecified (principal); R06.02 Shortness of breath; Z82.49 Family history of ischemic heart disease and other diseases of the circulatory system
CPT/HCPCS: 93017; 93306

== ENCOUNTER 2025-07-26 08:15 | Day surgery (SDC) | payer BC, SELFPAY ==
--- NOTE | 2025-07-22 16:40 | PAT.ANESEVAL ---
Pre-Assessment Diagnosis/Proposed Procedure Planned Operative Procedure(s): colonoscopy, egd Anesthesia History Anesthesia History - director of individual giving: Anesthesia History - director of individual giving Hx Hospitalization No 07/22/25 16:02 Any Problems With Anesthesia No 07/22/25 16:02 Cholinesterase deficiency No 07/22/25 16:02 You/Your Family Experience No 07/22/25 16:02 fever (hyperthermia) with Relationship Recent Exposure to Contagious No 08/02/21 13:59 Disease Does patient have nerve No 07/22/25 16:02 stimulator Patient instructed to have device shut off --Does patient have Pacemaker or ICD? When Was Last Pacemaker Check QUESTION #4 FULL TEXT: You/Your Family Experience fever (hyperthermia) with Anesthesia Last Oral Intake Last Oral intake: Last Oral Intake NPO since Meds taken in AM with sips of water? Meds patient instructed to take am of surgery PONV PONV - director of individual giving: PONV - director of individual giving Female Yes 07/22/25 16:02 HX of Motion Sickness No 07/22/25 16:02 HX of N/V After Surgery No 07/22/25 16:02 Non-Smoker No 07/22/25 16:02 Duration of Surgery greater No 07/22/25 16:02 than 60 minutes Number of Risk Factors 1 07/22/25 16:02 PONV Score Low Risk 07/22/25 16:02 Height & Weight Height & Weight: Anesthesia: Height & Weight Height 5 ft 3 in 06/20/25 14:43 Respiratory Assessment Respiratory Assessment - director of individual giving: Respiratory Tract Infection Hx - director of individual giving Hx Respiratory Tract Infection No 07/22/25 16:02 STOP Sleep Apnea STOP Sleep Apnea - director of individual giving: STOP Sleep Apnea - director of individual giving Hx Hypertension Yes 07/22/25 16:02 Hx Sleep Apnea Yes 07/22/25 16:02 CPAP Yes 07/22/25 16:02 BIPAP No 07/22/25 16:02 Do you snore loudly (louder than talking or can be heard Do you often feel tired/ fatigued/ sleepy during daytime? Has anyone observed you stop breathing during sleep? STOP Results Positive 07/22/25 16:02 QUESTION #5 FULL TEXT : Do you snore loudly (louder than talking or can be heard through closed doors)? 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 Specify any problems Hx of Preganancy in last 3 No 07/22/25 16:02 Months Nurse Filling Out Transfusion JZOLLINGE 07/22/25 16:02 & Questions: Date: 07/22/25 07/22/25 16:02 Time: 16:05 07/22/25 16:02 Patient unable to answer at this time (ie. confused, unrespo /Reproduction History /Reproductive History - director of individual giving: /Reproductive Hx- director of individual giving Hx Now No 07/22/25 16:02 Gestational Age (in weeks): EDC: Hx Hx Para Hx Section SAB No 07/22/25 16:02 [facility] Medical History (Updated 07/22/25 @ 16:02 by Adeline Pantoja) Depression Anxiety Alcohol use Heartburn Smoker CPAP (continuous positive airway pressure) dependence Sleep apnea History of echocardiogram History of stress test Kidney stones Home Medications ?Medication ?Instructions ?Recorded ?Last Taken ?Type sertraline 50 mg tablet 50 mg PO .q hs #90 tabs 07/20/19 Unknown History Saccharomyces boulardii 250 mg 250 mg PO QDAY 06/20/25 Unknown History capsule (Daily Probiotic (S. boulardii)) furosemide 20 mg tablet (Lasix) 20 mg PO QAM 06/20/25 Unknown History phentermine 37.5 mg capsule 37.5 mg PO QDAY 06/20/25 Unknown History potassium chloride 10 mEq 10 meq PO QDAY 06/20/25 Unknown History capsule,extended release Allergy/AdvReac Type Severity Reaction Status Date / Time No Known Allergies Allergy Verified 07/22/25 15:53 Family History Father Heart disease Grandmother Heart disease Grandfather Heart disease Surgical History (Updated 07/22/25 @ 16:02 by Adeline Pantoja) Hx of tubal ligation Status post surgical removal of both fallopian tubes Hx of section Social History (Updated 06/20/25 @ 14:43 by Edilma Mcqueen) Smoking Status: Current every day smoker tobacco type: cigarettes quit status: not considering quitting alcohol intake: current alcohol intake frequency: holidays/special occasions only Audit: Pertinent Findings Pertinent Findings Stress test pertinent findings: Stress test 06/28/2025. Stress test with no EKG criteria for ischemia at a high workload. Echo (EF%) pertinent findings: Echo 06/28/2025. Normal LV size. The left ventricular ejection fraction is 60%. Stage I diastolic dysfunction. No regional wall motion abnormalities noted. Recommendation Anesthesia Recommendation Anesthesia recommendation: OPTIMIZED for anesthesia
[2025-07-26] VITALS (8 sets, daily range): BP systolic 90–115; BP diastolic 52–68; PULSE 60–70; RESP 16–18; TEMP 36.3–36.9; O2SAT 97–100; BMI 35.3
--- OUTSIDE RECORDS SUMMARY | 2025-07-26 08:40 | XMS RPT_ITS | CCD ---
Author Organization [facility] Inform ion Partnership [facility] Care Team Providers Care Director Hospice Operations Name Role Phone Steffi Thakur Primary Care Provider [phone] Dr. Steffi Thakur MD Primary Care Provider [phone] Etienne RETAIL WAREHOUSE ASSOCIATE-C, Davida Attending Provider [phone] Etienne RETAIL WAREHOUSE ASSOCIATE-C, Davida Referring Provider Blaze BANKS, Dr. Kapadia Referring Provider Kendrick BANKS, Dr. Cook Attending Provider Yogesh BANKS, Dr. Thomson Attending Provider Miedel, Steffi Primary Care Unavailable Miedel, Steffi Attending Unavailable Miedel, Steffi Referring Unavailable Joey Marks Attending Unavailable Miedel, Steffi Primary Care Unavailable Petra RETAIL WAREHOUSE ASSOCIATE, Raven Attending Unavailable Petra RETAIL WAREHOUSE ASSOCIATE, Raven Referring Unavailable Miedel, Steffi Primary Care Unavailable Mihyunel, Steffi Attending Unavailable Miedel, Steffi Referring Unavailable Miedel, Steffi Primary Care Unavailable Miedel, Steffi Primary Care Unavailable Davida Clifton Attending Unavailable Davida Clifton Referring Unavailable Berto Zuñiga Attending Unavailable Miedel, Steffi Primary Care Unavailable Joey Marks Attending Unavailable Miedel, Steffi Referring Unavailable Miedel, Steffi Primary Care Unavailable Miedel, Steffi Primary Care Unavailable EtienneDavida nicholas Attending Unavailable Etienne, Davida Referring Unavailable Medications Current Medications Medication Drug Class(es) Dates Sig (Normalized) Sig (Original) furosemide 20 mg oral tablet (2 sources) Loop Diuretic Start: 06-20-2025 take 1 tablet by mouth once daily in the morning Furosemide (Lasix) 20 mg tablet Active 20 mg PO EVERY MORNING June 20, 2025 12:00am phentermine hydrochloride 37.5 mg oral capsule (2 sources) Sympathomimetic Amine Anorectic Start: 06-20-2025 take 1 capsule by mouth once daily 30 minutes after breakfast Phentermine 37.5 mg capsule Active 37.5 mg PO daily June 20, 2025 12:00am must administer 30 minutes before or 1-2 hours after breakfast potassium chloride 10 meq extended release oral capsule (2 sources) Start: 06-20-2025 take 1 capsule by mouth once daily Potassium Chloride 10 mEq capsule, extended release Active 10 meq PO daily June 20, 2025 12:00am saccharomyces boulardii 250 mg oral capsule (2 sources) Start: 06-20-2025 take 1 capsule by mouth once daily Saccharomyces Boulardii (Daily Probiotic (S. Boulardii)) 250 mg capsule Active 250 mg PO daily June 20, 2025 12:00am sertraline 50 mg oral tablet (10 sources) Serotonin Reuptake Inhibitor Start: 07-20-2019 Sertraline 50 mg tablet Active PO 90 0 July 20, 2019 12:00am Start: 07-20-2019 Sertraline Act viola PO 90 July 19, 2019 11:00pm Completed/Discontinued Medications Medication Drug Class(es) Dates Sig (Normalized) Sig (Original) acetaminophen 325 mg / HYDROcodone bitartrate 5 mg oral tablet (20 sources) Opioid Agonist Start: 08-02-2021 End: 06-20-2025 Hydrocodone-Acetami nophen 5-325 mg tablet Discontinued August 02, 2021 12:00am June 20, 2025 2:45pm Start: 08-02-2021 Hydrocodone-Ac etaminophen Active August 01, 2021 11:00pm Start: 07-27-2021 End: 06-20-2025 Hydrocodone-Acetaminophen 5- 325 mg tablet Discontinued 1 {tbl} PO EVERY 6 HOURS as needed for pain 10 3 0 July 27, 2021 June 20, 2025 2:45pm Calculus of ureter Calculus of ureter Start: 07-27-2021 take 1 tablet by kb th every six hours Hydrocodone-Acetaminophen Active 1 TABLE T PO EVERY 6 HOURS 10 3 July 27, 2021 Start: 01-30-2021 End: 02-02-2021 Hydrocodone-Acetaminophen 1 TABLET tablet Discontinued 1 {tbl} PO EVERY 6 HOURS NEEDED as needed for Pain 10 3 0 January 30, 2021 February 01, 2021 12:00am February 02, 2021 12:02am Calculus of kidney Calculus of kidney Start: 01-30-2021 End: 02-02-2021 take 1 tablet by mouth every six hours as needed Hydrocodone-Acetaminophen Discontinued 1 TABLET PO EVERY 6 HOURS NEEDED 10 3 January 30, 2021 February 01, 2021 11:02pm Start: 12-05-2017 End: 07-20-2019 Hydrocodone-Acetaminophen 1 EACH tablet Discontinued 1 - 2 NMA PO EVERY 6 HOURS NEEDED as needed for Severe Pain (6-10) 15 0 December 05, 2017 9:40am July 20, 2019 10:11am Other acute postprocedural pain Start: 12-05-2017 End: 07-20-2019 Hydrocodone-Acetaminophen Di scontinued 1 - 2 EACH PO EVERY 6 HOURS NEEDED 15 December 05, 2017 8:40am July 20, 2019 9:11am atorvastatin 20 mg oral tablet (20 sources) HMG-CoA Reductase Inhibitor Start: 08-02-2021 End: 06-20-2025 take 1 tablet by mouth once daily Atorvastatin 20 mg tablet Discontinued 20 mg PO DAILY August 02, 2021 12:00am June 20, 2025 2:45pm Start: 12-27-2016 End: 07-20-2019 take 10 mg by mouth at bedtime Atorvastatin 20 MG tabl et Discontinued 10 mg PO AT BEDTIME December 27, 2016 1:00am July 20, 2019 10:10am CHOLESTROL Start: 12-27-2016 End: 07-20-2019 take 10 mg by mouth at bedtime Atorvastatin Discontinu ed 10 MG PO AT BEDTIME December 27, 2016 12:00am July 20, 2019 9:10am FLUoxetine 20 mg oral capsule (10 sources) Serotonin Reuptake Inhibitor Start: 12-27-2016 End: 07-20-2019 take 2 capsules by mouth once daily Fluoxetine 20 MG capsule Discontinued 40 mg PO DAILY December 27, 2016 1:00am July 20, 2019 10:10am Start: 12-27-2016 End: 07-20-2019 take 40 mg by mouth once daily Fluoxetine Discontinued 40 MG PO DAILY December 27, 2016 12:00am July 20, 2019 9:10am ibuprofen 600 mg oral tablet (10 sources) Nonsteroidal Anti-inflammatory Drug Start: 11-28-2017 End: 07-20-2019 take 1 tablet by mouth twice daily Ibuprofen 600 MG tablet Discontinued 600 mg PO TWICE A DAY November 28, 2017 1:00am July 20, 2019 10:11am ketorolac tromethamine 10 mg oral tablet (10 sources) Nonsteroidal Anti-inflammatory Drug, Cyclooxygenase Inhibitor Start: 07-27-2021 End: 06-20-2025 take 1 tablet by mouth every six hours as needed for pain Ketorolac 10 mg tablet Discontinued 10 mg PO EVERY 6 HOURS as needed for pain 10 July 27, 2021 12:00am June 20, 2025 2:45pm LORazepam 1 mg oral tablet (10 sources) Benzodiazepine Start: 11-28-2017 End: 06-20-2025 take 1 tablet by mouth once daily as needed for anxiety Lorazepam 1 MG tablet Discontinued 1 mg PO DAILY NEEDED as needed for Anxiety November 28, 2017 1:00am June 20, 2025 2:45pm ondansetron 4 mg disintegrating oral tablet (20 sources) Serotonin-3 Receptor Antagonist Start: 01-30-2021 End: 06-20-2025 take 1 tablet by mouth every eight hours as needed for nausea and vomiting Ondansetron 4 mg tablet,disintegr ating Discontinued 4 mg PO Q8H as needed for nausea and vomiting July 27, 2021 12:00am June 20, 2025 2:45pm sulfamethoxazole 800 mg / trimethoprim 160 mg oral tablet (10 sources) Dihydrofolate Reductase Inhibitor Antibacterial, Sulfonamide Antimicrobial Start: 01-18-2021 End: 11-24-2021 Sulfamethoxazole -Trimethoprim (Bactrim Ds) 800-160 mg tablet Discontinued 1 {tbl} PO TWICE A DAY 10 January 18, 2021 1:00am November 24, 2021 5:01pm tamsulosin hydrochloride 0.4 mg oral capsule (20 sources) alpha-Adrenergic Joanne Start: 01-30-2021 End: 06-20-2025 take 1 capsule by mouth once daily Tamsulosin (Flomax) 0.4 mg capsule Discontinued 0.4 mg PO DAILY July 27, 2021 12:00am June 20, 2025 2:45pm tiZANidine 4 mg oral capsule (10 sources) Central alpha-2 Adrenergic Agonist Start: 08-01-2020 End: 06-20-2025 take 1 capsule by mouth every eight hours as needed Tizanidine 4 mg capsule Discontinued 4 mg PO Q8H as needed for muscle spasticity 30 0 August 01, 2020 12:00am June 20, 2025 2:45pm Problems Active Problems Problem Classification Problem Date Documented Da te Episodic/Chronic Administrative/social admission (13 sources) Patient encounter status; Translations: [Encounter for pre-employment examination] 07-20-2019 Episodic Calculus of urinary tract (20 sources) Ureteric stone; Translations: [Calculus of ureter] 08-02-2021 Episodic Immunizations and screening for infectious disease (2 sources) Contact with or exposure to other viral diseases; Translations: [Exposure to COVID-19 virus] Episodic Nonspecific chest pain (1 source) Chest pain, unspecified; Translations: [Chest pain, unspecified] Onset: 07-04-2025 Episodic Other circulatory disease (1 source) Respiratory symptom; Translations: [Other specified symptoms and signs involving the circulatory and respiratory systems] Episodic Other gastrointestinal disorders (3 sources) Abdominal bloating; Translations: [Abdominal distension (gaseous)] 06-20-2025 Episodic Other upper respiratory infections (10 sources) Acute upper respiratory infection; Translations: [Acute upper respiratory infection, unspecified] 11-24-2021 Episodic Residual codes; unclassified (1 source) Tobacco use; Translations: [Tobacco use] Onset: 07-22-2025 Episodic Sprains and strains (20 sources) Strain of trapezius muscle; Translations: [Strain of other muscles, fascia and tendons at shoulder and upper arm level, unspecified arm, initial encounter] 08-01-2020 Episodic Urinary tract infections (10 sources) Urinary tract infectious disease; Translations: [Urinary tract infection, site not specified] 08-02-2021 Episodic Viral infection (10 sources) Disease caused by 2019-nCoV; Translations: [COVID-19] 09-05-2021 Episodic Past or Other Problems Problem Classification Problem Date Documented Da te Episodic/Chronic Deficiency and other anemia (1 source) Anemia, unspecified; Translations: [Anemia, unspecified] Onset: 09-09-2024 Episodic Other screening for suspected conditions (not mental disorders or infectious disease) (1 source) Encounter for screening mammogram for malignant neoplasm of breast; Translations: [Encounter for screening mammogram for malignant neoplasm of breast] Onset: 12-04-2024 Episodic Results Test Name Value Interpretation Reference Range Facility MR/Sandhya 07-22-2025 MR/[facility] Medical Records Department [address] [place] [address] PAT - Anesthesia 07/22/25 1640 MR#: [id number] Acct: [id number] Name: CHARBEL TURCIOS Rep #: [id number] : 1975 50 From: Baldemar Lemus MD PCP: Dr. 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 When Was Last Pacemaker Check QUESTION #4 FULL TEXT: You/Your Family Experience fever (hyperthermia) with Anesthesia Last Oral Intake Last Oral intake: Last Oral Intake NPO since Meds taken in AM with sips of water? Meds patient instructed to take am of surgery PONV PONV - bridge welder: PONV - bridge welder Female Yes 07/22/25 16:02 HX of Motion Sickness No 07/22/25 16:02 HX of N/V After Surgery No 07/22/25 16:02 Non-Smoker No 07/22/25 16:02 Duration of Surgery greater No 07/22/25 16:02 than 60 minutes Number of Risk Factors 1 07/22/25 16:02 PONV Score Low Risk 07/22/25 16:02 Height Weight Height Weight: Anesthesia: Height Weight Height 5 ft 3 in 06/20/25 14:43 Respiratory Assessment Respiratory Assessment - bridge welder: Respiratory Tract Infection Hx - bridge welder Hx Respiratory Tract Infection No 07/22/25 16:02 STOP Sleep Apnea STOP Sleep Apnea - bridge welder: STOP Sleep Apnea - bridge welder Hx Hypertension Yes 07/22/25 16:02 Hx Sleep Apnea Yes 07/22/25 16:02 CPAP Yes 07/22/25 16:02 BIPAP No 07/22/25 16:02 Do you snore loudly (louder than talking or can be heard Do you often feel tired/ fatigued/ sleepy during daytime? Has anyone observed you stop breathing during sleep? STOP Results Positive 07/22/25 16:02 QUESTION #5 FULL TEXT : Do you snore loudly (louder than talking or can be heard through closed doors)? 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 Specify any problems Hx of Preganancy in last 3 No 07/22/25 16:02 Months Nurse Filling Out Transfusion THEODORE 07/22/25 16:02 Questions: Date: 07/22/25 07/22/25 16:02 Time: 16:05 07/22/25 16:02 Patient unable to answer at this time (ie. confused, unrespo /Reproducti on History /Reproducti ve History - bridge welder: /Reproducti ve Hx- bridge welder Hx Now No 07/22/25 16:02 Gestational Age (in weeks): EDC: Hx Hx Para Hx Section SAB No 07/22/25 16:02 PFSH Medical History (Updated 07/22/25 @ 16:02 by Adeline Pantoja) Depression Anxiety Alcohol use Heartburn Smoker CPAP (continuous positive airway pressure) dependence Sleep apnea History of echocardiogram History of stress test Kidney stones Home Medications ???Medication ???Instructions ???Recorded ???Last Taken ???Type sertraline 50 mg tablet 50 mg PO .q hs #90 tabs 07/20/19 U nknown History Saccharomyces boulardii 250 mg 250 mg PO QDAY 06/20/25 Unknown Hi story capsule (Daily Probiotic (S. boulardii)) furosemide 20 mg tablet (Lasix) 20 mg PO QAM 06/20/25 Unknown Hist ory phentermine 37.5 mg capsule 37.5 mg PO QDAY 06/20/25 Unknown H istory potassium chloride 10 mEq 10 meq PO QDAY 06/20/25 Unknown Hi story capsule,extended release Allergy/AdvReac Type Severity Reaction Status Date / Time No Known Allergies Allergy Verified 07/22/25 15:53 Family History (more content not included)... Normal [facility] Cardiovascular stress test r eportOrdered By: Berto Zuñiga on 06-28-2025 Study report [facility] [address] [place] [address] MR#: [id number] Acct: [id number] Name: CHARBEL TURCIOS Rep #: [id number] : 1975 50 From: Berto Zuñiga MD Primary Care: Dr. Steffi Thakur MD Statu s: REG CLI Referring Dr: Davida Clifton RETAIL WAREHOUSE ASSOCIATE-C Sex: F C Stress Test Report Exercise stress test. 50-year-old lady with a history of chest pain. Stress protocol: Resting EKG demonstrates normal sinus rhythm with a rate of 72 bpm resting bloodpressure is 116/70 mmHg. The patient exercised according to the regular Sky protocol for a total duration of 8 minutes attaining a maximum heart rate of 144bpm which was 85% of maximum predicted heart rate; the maximum workload was 10.1metabolic equivalents. At rest there were no ST or T wave changes noted to suggest ischemia and at peak exercise upsloping ST changes only were noted whichdid not meet the criteria for ischemia. No clinical angina was noted the test was terminated due to the target heart rate being achieved/fatigue. The peak blood pressure was 162/60 mmHg. Rate-pressure product was 15,000. Conclusion: Stress test with no EKG criteria for ischemia at a high workload 06/28/251853 Date _ Berto Zuñiga MD CC: RETAIL WAREHOUSE ASSOCIATE-C Davida Clifton; Dr. Steffi Thakur MD ~ Date Dictated: 06/28/251851 Date Transcribed: 06/28/251851 Felting Machine Operator Helper: CO Signed [facility] Work Phone: Echo Completeon 06-28-2025 Echo Complete [facility] [address] [place] [address] Echo Complete 06/28/25 1301 MR#: [id number] Acct: [id number] Name: CHARBEL TURCIOS Rep #: [id number] : 1975 50 From: Berto Zuñiga MD Attending Dr: JEAN-PIERRE Lowry Status: REG CL I Ordering Dr: Davida Clifton Date: 06/28/25 Location: [facility] Sex: F C Admitted: Reason For Study Reason For Study: CHEST PAIN Procedure This was a 2D Doppler, Color Flow transthoracic echocardiogram. Exam performed in department. Left Ventricle Normal LV size. The left ventricular ejection fraction is 60 %. Stage 1 diastolic dysfunction. No regional wall motion abnormalities noted. Right Ventricle Normal RV size. Normal systolic function. Atria Normal left atrium. Normal right atrium. Mitral Valve Normal mitral valve. Tricuspid Valve Normal tricuspid valve. Mild tricuspid valve insufficiency. Pulmonary artery systolic pressure is 15 mmHg. Aortic Valve Normal aortic valve. Trisinus/trileaflet aortic valve. Pulmonic Valve Normal pulmonic valve. Great Vessels Normal aortic root. The pulmonary artery is normal size. Inferior vena cava collapse with respiration. Pericardium/Pleural No pericardial effusion. MMode/2D Measurements Calculations LVIDd: 4.5 cm IVSd: 0.93 cm LVOT diam: 2.0 cm LVIDs: 2.9 cm LVPWd: 0.99 cm LVOT area: 3.1 cm2 RVDd: 3.6 cm FS: 35.6 % asc Aorta Diam: 3.5 cm LAV(MOD-bp): 24.9 ml LVAd ap4: 19.5 cm2 LAV(MOD-bp) Indexed: 12.9 ml/m2 LVLd ap4: 6.8 cm LAV(MOD-sp2): 25.5 ml EDV(MOD-sp4): 45.9 ml LAV(MOD-sp4): 24.8 ml EDV(sp4-el): 47.2 ml LVAs ap4: 11.1 cm2 LVLs ap4: 5.8 cm ESV(MOD-sp4): 17.6 ml ESV(sp4-el): 17.7 ml EF(MOD-sp4): 61.8 % EF(sp4-el): 62.4 % LVAd ap2: 20.5 cm2 SV(MOD-sp4): 28.3 ml SV(MOD-sp2): 33.2 ml LVLd ap2: 7.0 cm SI(MOD-sp4): 14.7 ml/m2 SI(MOD-sp2): 17.2 ml/m2 EDV(MOD-sp2): 49.9 ml EDV(sp2-el): 51.1 ml LVAs ap2: 10.4 cm2 LVLs ap2: 5.6 cm ESV(MOD-sp2): 16.7 ml ESV(sp2-el): 16.4 ml EF(MOD-sp2): 66.5 % SV(sp4-el): 29.5 ml Ao sinus diam: 3.0 cm LA A4 area: 12.0 cm2 LA dimension(2D): 3.5 cm RA A4 area: 9.3 cm2 TAPSE: 1.9 cm Time Measurements MV dec time: 0.18 sec Doppler Measurements Calculations MV E max agapito: 71.1 cm/sec Lat Peak E' Agapito: 9.9 cm/sec Med Peak E' Agapito: 9.1 cm/sec MV A max agapito: 80.4 cm/sec E/E' lat: 7.2 E/E' med: 7.8 MV E/A: 0.88 Ao V2 max: 163.7 cm/sec LV V1 max: 115.6 cm/sec MV dec slope: 388.9 cm/sec2 Ao max P.7 mmHg LV V1 max P.3 mmHg Ao V2 mean: 113.9 cm/sec LV V1 mean P.1 mmHg Ao mean P.8 mmHg LV V1 mean: 99.5 cm/sec Ao V2 VTI: 29.6 cm LV V1 VTI: 23.9 cm AV (velocity ratio): 0.81 STANLEY(I,D): 2.5 cm2 STANLEY(V,D): 2.2 cm2 SV(LVOT): 74.4 ml PA V2 max: 96.8 cm/sec TR max agapito: 176.7 cm/sec TR max P.5 mmHg ECHO/Echo Complete Interpretation Summary Normal LV size. The left ventricular ejection fraction is 60 %. Stage 1 diastolic dysfunction. Structurally normal valves. Ordering Physician: Davida Clifton Referring Physician: Davida Clifton Performed By: Kandice Blank RDCS 06/28/251731 Date Berto Zuñiga MD CC: RETAIL WAREHOUSE ASSOCIATE-C Davida Clifton; Dr. Steffi Thakur MD Date Dictated: 06/28/25 1301 Date Transcribed: 06/28/251731 Felting Machine Operator Helper: Signed Normal [facility] Echocardiogram study reportO rdered By: Berto Zuñiga on 06-28-2025 Study report [facility] [address] [place] [address] Echo Complete 06/28/25 1301 MR#: [id number] Acct: [id number] Name: CHARBEL TURCIOS Rep #:[id number] : 1975 50 From: Berto Dunlap Attending Dr: JEAN-PIERRE Lowry atus: REG CLI Ordering Dr: Davida Clifton Date: 06/28/25 Location: [facility] Sex: F C Admitted: Reason For Study Reason For Study: CHEST PAIN Procedure This was a 2D Doppler, Color Flow transthoracic echocardiogram. Exam performed in department. Left Ventricle Normal LV size. The left ventricular ejection fraction is 60 %. Stage 1 diastolic dysfunction. No regional wall motion abnormalities noted. Right Ventricle Normal RV size. Normal systolic function. Atria Normal left atrium. Normal right atrium. Mitral Valve Normal mitral valve. Tricuspid Valve Normal tricuspid valve. Mild tricuspid valve insufficiency. Pulmonary artery systolic pressure is 15 mmHg. Aortic Valve Normal aortic valve. Trisinus/trileaflet aortic valve. Pulmonic Valve Normal pulmonic valve. Great Vessels Normal aortic root. The pulmonary artery is normal size. Inferior vena cava collapse with respiration. Pericardium/Pleural No pericardial effusion. MMode/2D Measurements & Calculations LVIDd: 4.5 cm IVSd: 0.93 cm LVOT diam: 2.0 cm LVIDs: 2.9 cm LVPWd: 0.99 cm LVOT area: 3.1 cm2 RVDd: 3.6 cm FS: 35.6 % asc Aorta Diam: 3.5 cm LAV(MOD-bp): 24.9 ml LVAd ap4: 19.5 cm2 LAV(MOD-bp) Indexed: 12.9 ml/m2 LVLd ap4: 6.8 cm LAV(MOD-sp2): 25.5 ml EDV(MOD-sp4): 45.9 ml LAV(MOD-sp4): 24.8 ml EDV(sp4-el): 47.2 ml LVAs ap4: 11.1 cm2 LVLs ap4: 5.8 cm ESV(MOD-sp4): 17.6 ml ESV(sp4-el): 17.7 ml EF(MOD-sp4): 61.8 % EF(sp4-el): 62.4 % LVAd ap2: 20.5 cm2 SV(MOD-sp4): 28.3 ml SV(MOD-sp2): 33.2 ml LVLd ap2: 7.0 cm SI(MOD-sp4): 14.7 ml/m2 SI(MOD-sp2): 17.2 ml/m2 EDV(MOD-sp2): 49.9 ml EDV(sp2-el): 51.1 ml LVAs ap2: 10.4 cm2 LVLs ap2: 5.6 cm ESV(MOD-sp2): 16.7 ml ESV(sp2-el): 16.4 ml EF(MOD-sp2): 66.5 % SV(sp4-el): 29.5 ml Ao sinus diam: 3.0 cm LA A4 area: 12.0 cm2 LA dimension(2D): 3.5 cm RA A4 area: 9.3 cm2 TAPSE: 1.9 cm Time Measurements MV dec time: 0.18 sec Doppler Measurements & Calculations MV E max agapito: 71.1 cm/sec Lat Peak E' Agapito: 9.9 cm/sec Med Peak E' Agapito: 9.1 cm/sec MV A max agapito: 80.4 cm/sec E/E' lat: 7.2 E/E' med: 7.8 MV E/A: 0.88 Ao V2 max: 163.7 cm/sec LV V1 max: 115.6 cm/sec MV dec slope: 388.9 cm/sec2 Ao max P.7 mmHg LV V1 max P.3 mmHg Ao V2 mean: 113.9 cm/sec LV V1 mean P.1 mmHg Ao mean P.8 mmHg LV V1 mean: 99.5 cm/sec Ao V2 VTI: 29.6 cm LV V1 VTI: 23.9 cm AV (velocity ratio): 0.81 STANLEY(I,D): 2.5 cm2 STANLEY(V,D): 2.2 cm2 SV(LVOT): 74.4 ml PA V2 max: 96.8 cm/sec TR max agapito: 176.7 cm/sec TR max P.5 mmHg ECHO/Echo Complete Interpretation Summary Normal LV size. The left ventricular ejection fraction is 60 %. Stage 1 diastolic dysfunction. Structurally normal valves. Ordering Physician: Davida Clifton Referring Physician: Davida Clifton Performed By: Kandice Blank DEVIN 06/28/251731 Date _ Berto Zuñiga MD CC: RETAIL WAREHOUSE ASSOCIATE-C Davida Clifton; Dr. Steffi Thakur MD ~ Date Dictated: 06/28/25 1301 Date Transcribed: 06/28/251731 Felting Machine Operator Helper: Signed [facility] Work Phone: Stress Reporton 06-28-2025 Stress Report [facility] [address] [place] [id number] MR#: [id number] Acct: [id number] Name: CHARBEL TURCIOS Rep #: [id number] : 1975 50 From: Berto Zuñiga MD Primary Care: Dr. Steffi Thakur MD Status: REG CLI Referring Dr: Davida Clifton RETAIL WAREHOUSE ASSOCIATE-C Sex: F C Stress Test Report Exercise stress test. 50-year-old lady with a history of chest pain. Stress protocol: Resting EKG demonstrates normal sinus rhythm with a rate of 72 bpm resting blood pressure is 116/70 mmHg. The patient exercised according to the regular Sky protocol for a total duration of 8 minutes attaining a maximum heart rate of 144 bpm which was 85% of maximum predicted heart rate; the maximum workload was 10.1 metabolic equivalents. At rest there were no ST or T wave changes noted to suggest ischemia and at peak exercise upsloping ST changes only were noted which did not meet the criteria for ischemia. No clinical angina was noted the test was terminated due to the target heart rate being achieved/fatigue. The peak blood pressure was 162/60 mmHg. Rate-pressure product was 15,000. Conclusion: Stress test with no EKG criteria for ischemia at a high workload 06/28/251853 Date Berto Zuñiga MD CC: RETAIL WAREHOUSE ASSOCIATE-Fredi Clifton; Dr. Steffi Thakur MD Date Dictated: 06/28/251851 Date Transcribed: 06/28/251851 Felting Machine Operator Helper: CO Signed Normal [facility] Surgery Visit Reporton 06-20 Surgery Visit Report [facility] [address] [place] [address] OFFICE VISIT Date of Service: 06/20/25 MR#: [id number] Acct: [id number] Name: CHARBEL TURCIOS Rep #: [id number] : 1975 Provider: Dr. Joey wall MD Age/Sex: 49/F Location: [facility] Status: Signed Intake Vital Signs 08/02/21 13:59 06/20/25 14:43 Height 5 ft 3 in 5 ft 3 in Weight: 208 lb BMI 36.8 BP 119/74 Blood Pressure Location Rt brachial Position Sitting Respiration 17 Pulse 92 Pulse Source Monitor Pulse Oximetry (%) 98 Oxygen Delivery Method room air Intake Visit Reasons: UPPER AND LOWER- BLOATING Chief Complaint: upper and lower Is patient in pain?: No Allergies No Known Allergies Allergy (Verified 06/20/25 14:45) Medications ???Medication ???Instructions ???Recorded ???Confirmed ???Type sertraline 50 mg tablet PO #90 tabs 07/20/19 06/20/25 Hist ory Saccharomyces boulardii 250 mg 250 mg PO QDAY 06/20/25 06/20/25 H istory capsule (Daily Probiotic (S. boulardii)) furosemide 20 mg tablet (Lasix) 20 mg PO QAM 06/20/25 06/20/25 His tory phentermine 37.5 mg capsule 37.5 mg PO QDAY 06/20/25 06/20/25 History potassium chloride 10 mEq 10 meq PO QDAY 06/20/25 06/20/25 H istory capsule,extended release [facility] Medical History Kidney stones Surgical History Status post surgical removal of both fallopian tubes Hx of section Family History Father Heart disease Grandmother Heart disease Grandfather Heart disease Social History (Updated 06/20/25 @ 14:43 by Edilma Mcqueen) Smoking Status: Current every day smoker tobacco type: cigarettes quit status: not considering quitting alcohol intake: current alcohol intake frequency: holidays/special occasions only HPI HPI HPI: Patient is a 49-year-old female who is here for abdominal bloating. She says anytime she eats she gets very bloated in her upper abdomen and gets very gassy. She reports she has never had a colonoscopy for screening. She has never had an EGD. She has tried PPI in the past but she said it was sporadic. ROS General General: Yes weight change; No appetite, fatigue, colon cancer, breast cancer or weakness Additional Details: loss intentional HEENT HEENT: No difficulty swallowing, eye injury, eye surgery, swollen glands or hoarseness Endo Endocrine: No thyroid disease, diabetes mellitus, thyroid cancer, Hair loss, heat intolerance or cold intolerance Skin Skin: No rash or changing moles Musc Musculoskeletal: Yes back problems; No arthritis, rheumatoid arthritis, gout or joint pain Cardio Cardiovascular: No murmur, pacemaker, heart disease, atrial fibrillation, high blood pressure, heart attack, heart stent, palpitations, shortness of breath with exertion or chest pain Psych Psychiatric: Yes depression and anxiety; No hearing voices Resp Respiratory: Yes shortness of breath, Yes sleep apnea, Yes cough, No COPD, No asthma, No emphysema and No wheezing Gastro Gastrointestinal: No abdominal pain, No nausea or vomiting, No diarrhea, Yes constipation, No blood in stool, No acid reflux, No hemorrhoids, No ulcers, No gallbladder problem and No black,tarry stools Additional Details: Bloating [place]elo Hematologic: No blood thinners, No blood disorders, No bleeding, No anemia and No blood clots Neuro Neurologic: No system reviewed and no additional complaints, except as documented, No as per HPI, No abnormal gait, No abnormal hearing, No abnormal movements, No abnormal speech, No behavioral changes, No burning sensations, No confusion, No convulsions, No disequilibrium, No dizziness, No localized weakness, No frequent falls, No headache(s), No lack of coordination, No loss of vision, No memory loss, No numbness, No other visual disturbances, No radicular pain, No restless legs, No sensory deficit, No syncope, Yes tingling, No tremor(s), No weakness and No other Exam Const General: cooperative Orientation: alert and oriented x3 HENMT Head: normal to inspection Neck Neck: normal visual inspection and full ROM Chest Chest palpation inspection: normal inspection of the chest Resp Effort Inspection: normal respiratory effort Auscultation: clear to auscultation bilaterally Cardio Rate: regular rate Rhythm: regular rhythm GI Inspection: non-distended Palpation: soft and nontender Skin General: no rashes or lesions noted Neuro General: patient alert and patient oriented x3 Extrem General: full ROM Psych Appearance: grossly normal Mental Status: mental status grossly normal Assessment and Plan Assessment and Plan ( (more content not included)... Normal [facility] ANTINUCLEAR ANTIBODIES [facility] 05-29-2025 JULISSA,DIRECT Negative Normal Negative [facility] Comment on above: Result Comment: Perf ormed at: - [facility] [address] [place], [place] [id number] Bulk Driver: Brock Alfaro PhD, Phone: [phone] Performed By: #### L 500.4100, L4600.0100, L500.4050, L505.7010, L100.0100, L503.7505, L501.1400, L101.9900, L3100.4375, L501.6710 ####[facility] [address] [place], [place], [id number] CCP IgG Antibodieson 025 CCP IgG Ab. 5 units Normal 0-19 [facility] Comment on above: Result Comment: Nega tive <20 Weak positive 20 - 39 Moderate positive 40 - 59 Strong positive >59 Performed at: - [facility] [id number] Bulk Driver: Brock Alfaro PhD, Phone: [phone] Performed By: #### L 500.4100, L4600.0100, L500.4050, L505.7010, L100.0100, L503.7505, L501.1400, L101.9900, L3100.5475, L501.6710 ####[facility] [address] [place], [place], [id number] Absolute lymphocyte countOrd ered By: Davida Etienne on 05-27-2025 Lymphocytes Auto (Unsp spec) [#/Vol] 3.45 10*3/uL 0.83-4.51 [facility] Absolute neutrophil countOrd ered By: [facility]-2025 Neutrophils (Bld) [#/Vol] 5.3 10*3/uL 2.0-7.7 [facility] Anion gap in Serum or Plasma Ordered By: Davidaclara Clifton on 05-27-2025 Anion gap [Moles/Vol] 14 mmol/L 5-15 [facility] Automated lymphocyte count a s percentage of total leukocytesOrdered By: Davidaclara Clifton on 05-27-2025 Lymphocytes/100 WBC Auto (Unsp spec) 33.3 % 19-41 [facility] BUN/creatinine ratioOrdered By: [facility] on 05-27-2025 Urea nitrogen/Creatinine [Mass ratio] 10.5 mg/mg 10-20 [facility] Basophil percentageOrdered B y: Davida Clifton on 05-27-2025 Basophils/100 WBC (Bld) 1.4 % High 0-1 [facility] Bilirubin, totalOrdered By: Davidaclara Clifton on 05-27-2025 Bilirubin [Mass/Vol] 0.18 mg/dL 0.00-1.30 [facility] CBC W/Diff, Automatedon 07-11 17-2024 Absolute Lymph 3.45 X10 3/uL Normal 0.83-4.51 [facility] Comment on above: Performed By: #### L 500.4100, L4600.0100, L500.4050, L505.7010, L100.0100, L503.7505, L501.1400, L101.9900, L3100.5475, L501.6710 #### [facility] [address] [place], [place], [phone] (649) Absolute Neut 5.3 X10 3/uL Normal 2.0-7.7 [facility] Comment on above: Performed By: #### L 500.4100, L4600.0100, L500.4050, L505.7010, L100.0100, L503.7505, L501.1400, L101.9900, L3100.5475, L501.6710 #### [facility] [address] [place], [place], [phone] (633 Basophils/100 WBC (Bld) 1.4 % High 0-1 [facility] Comment on above: Performed By: #### L 500.4100, L4600.0100, L500.4050, L505.7010, L100.0100, L503.7505, L501.1400, L101.9900, L3100.5475, L501.6710 #### [facility] [address] [place], [place], [phone] (970 Eosinophils/100 WBC (Bld) 3.8 % Normal 0-5 [facility] Comment on above: Performed By: #### L 500.4100, L4600.0100, L500.4050, L505.7010, L100.0100, L503.7505, L501.1400, L101.9900, L3100.5475, L501.6710 #### [facility] [address] [place], [place], [phone] (769) Erythrocyte distribution width (RBC) [Ratio] 13.7 % Normal 11.6-14.6 [facility] Comment on above: Performed By: #### L 500.4100, L4600.0100, L500.4050, L505.7010, L100.0100, L503.7505, L501.1400, L101.9900, L3100.5475, L501.6710 #### [facility] [address] [facility] [place], [place], [phone] Hematocrit (Bld) [Volume fraction] 43.7 % Normal 37-47 [facility] Comment on above: Performed By: #### L 500.4100, L4600.0100, L500.4050, L505.7010, L100.0100, L503.7505, L501.1400, L101.9900, L3100.5475, L501.6710 #### [facility] [address] [facility] [place], [place], [phone] Hemoglobin (Bld) [Mass/Vol] 14.6 g/dL Normal 12.0-15.0 [facility] Comment on above: Performed By: #### L 500.4100, L4600.0100, L500.4050, L505.7010, L100.0100, L503.7505, L501.1400, L101.9900, L3100.5475, L501.6710 #### [facility] [address] [facility]. [place], [place], [id number] IG% 0.400 Normal 0.0-0.9 [facility] Comment on above: Result Comment: IG% - Immature Granulocytes (promyelocytes, myelocytes and metamyelocytes) > 1% indicates that a LEFT SHIFT is Present. Performed By: #### L 500.4100, L4600.0100, L500.4050, L505.7010, L100.0100, L503.7505, L501.1400, L101.9900, L3100.5475, L501.6710 #### [facility] [address] [facility] [place], [address] Lymphocytes/100 WBC (Bld) 33.3 % Normal 19-41 [facility] Comment on above: Performed By: #### L 500.4100, L4600.0100, L500.4050, L505.7010, L100.0100, L503.7505, L501.1400, L101.9900, L3100.5475, L501.6710 #### [facility] [address] [facility] [place], [address] MCH (RBC) [Entitic mass] 29.9 pg Normal 27.0-32.0 [facility] Comment on above: Performed By: #### L 500.4100, L4600.0100, L500.4050, L505.7010, L100.0100, L503.7505, L501.1400, L101.9900, L3100.5475, L501.6710 #### [facility] [address] [facility] [place], [address] MCHC (RBC) [Mass/Vol] 33.4 g/dL Normal 32-36 [facility] Comment on above: Performed By: #### L 500.4100, L4600.0100, L500.4050, L505.7010, L100.0100, L503.7505, L501.1400, L101.9900, L3100.5475, L501.6710 #### [facility] [address] [place], [address] MCV (RBC) [Entitic vol] 89.4 fL Normal 81-99 [facility] Comment on above: Performed By: #### L 500.4100, L4600.0100, L500.4050, L505.7010, L100.0100, L503.7505, L501.1400, L101.9900, L3100.5475, L501.6710 #### [facility] [address] [place], [place], [phone] (006 Monocytes/100 WBC (Bld) 10.0 % Normal 0-10 [facility] Comment on above: Performed By: #### L 500.4100, L4600.0100, L500.4050, L505.7010, L100.0100, L503.7505, L501.1400, L101.9900, L3100.5475, L501.6710 #### [facility] [address] [facility] [place], [address] (372 Neutrophils/100 WBC (Bld) 51.1 % Normal 47-70 [facility] Comment on above: Performed By: #### L 500.4100, L4600.0100, L500.4050, L505.7010, L100.0100, L503.7505, L501.1400, L101.9900, L3100.5475, L501.6710 #### [facility] [address] [place], [address] (690 Nucleated RBC (Bld) [#/Vol] 0 10*3/uL Normal 0-5 [facility] Comment on above: Performed By: #### L 500.4100, L4600.0100, L500.4050, L505.7010, L100.0100, L503.7505, L501.1400, L101.9900, L3100.5475, L501.6710 #### [facility] [address] [place], [address] (291 Platelet mean volume (Bld) [Entitic vol] 11.2 fL Normal 6.2-12.0 [facility] Comment on above: Performed By: #### L 500.4100, L4600.0100, L500.4050, L505.7010, L100.0100, L503.7505, L501.1400, L101.9900, L3100.5475, L501.6710 #### [facility] [address] [facility] [place], [address] (328 Platelets (Bld) [#/Vol] 350 10*3/uL Normal 150-450 [facility] Comment on above: Performed By: #### L 500.4100, L4600.0100, L500.4050, L505.7010, L100.0100, L503.7505, L501.1400, L101.9900, L3100.5475, L501.6710 #### [facility] [address] [place], [address] (932 RBC (Bld) [#/Vol] 4.89 10*6/uL Normal 4.2-5.4 [facility] Comment on above: Performed By: #### L 500.4100, L4600.0100, L500.4050, L505.7010, L100.0100, L503.7505, L501.1400, L101.9900, L3100.5475, L501.6710 #### [facility] [address] [place], [address] (380 RDW SD 44.7 fl High 35.1-43.9 [facility] Comment on above: Performed By: #### L 500.4100, L4600.0100, L500.4050, L505.7010, L100.0100, L503.7505, L501.1400, L101.9900, L3100.5475, L501.6710 #### [facility] [address] [place], [address] (475 WBC (Bld) [#/Vol] 10.4 10*3/uL Normal 4.4-11.0 [facility] Comment on above: Performed By: #### L 500.4100, L4600.0100, L500.4050, L505.7010, L100.0100, L503.7505, L501.1400, L101.9900, L3100.5475, L501.6710 #### [facility] [address] [place], [address] CRPon 05-27-2025 C-REACTIVE PROT < 3.00 Normal 0.0-3.0 [facility] Comment on above: Performed By: #### L 500.4100, L4600.0100, L500.4050, L505.7010, L100.0100, L503.7505, L501.1400, L101.9900, L3100.5475, L501.6710 #### [facility] [address] [place], [address] Calculated very low density lipoprotein (VLDL) cholesterol measurementOrdered By: Davida Clifton on 05-27-2025 Calculated very low density lipoprotein (VLDL) cholesterol measurement 38 mg/dL 5-40 [facility] Carbon dioxide, total [Moles /volume] in Central venous bloodOrdered By: Davida Clifton on 05-27-2025 CO2 [Moles/Vol] 18.7 mmol/L Low 21.0-32.0 [facility] Chest PA and Lateralon 05-27 Chest PA and Lateral [facility] Imaging Services [address] [place], [place] [address] Chest PA and Lateral MR#: [id number] Acct: [id number] Name: CHARBEL TURCIOS Rep #: [id number] : 1975 F 49 From: Batsheva Graham PCP: Dr. Steffi Thakur MD Status: REG CLI Study: Chest PA and Lateral Date of Exam: 05/27/25 Exam# [id number] Ordering Dr: Davida Clifton [employer]-C PROCEDURE: CHEST PA AND LATERAL 05/27/2025 REASON FOR EXAM: CHEST PAIN TECHNIQUE: CHEST PA AND LATERAL COMPARISON: Chest CT study dated 08/10/2023 and chest x-ray study dated 07/25/2023 FINDINGS: Hardware: None Heart: Heart size and configuration are within normal limits. Mediastinum: Pulmonary vasculature and hilar structures are unremarkable. Trachea is midline. Mediastinal silhouette is within normal limits. Lungs: Expanded and clear without evidence of atelectasis, consolidation, effusion or pneumonic infiltrate. There are no pneumothoraces. Bones: Very mild degenerative changes of the thoracic spine are noted. RAD/Chest PA and Lateral IMPRESSION: No acute cardiopulmonary process is identified radiographically. If the patient's symptoms do continue or persist, a follow up chest x-ray is recommended. Reading Location: [id number] CC: JEAN-PIERRE Clifton; Dr. 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, [address] Albumin/Globulin [Mass ratio] 1.5 {ratio} Normal 0.9-2.4 [facility] Comment on above: Performed By: #### L 500.4100, L4600.0100, L500.4050, L505.7010, L100.0100, L503.7505, L501.1400, L101.9900, L3100.5475, L501.6710 #### [facility] [address] [place], [address] ALK PHOS 90 U/L Normal 35-104 [facility] Comment on above: Performed By: #### L 500.4100, L4600.0100, L500.4050, L505.7010, L100.0100, L503.7505, L501.1400, L101.9900, L3100.5475, L501.6710 #### [facility] [address] [place], [address] ALT [Catalytic activity/Vol] 28 U/L Normal <=34 [facility] Comment on above: Performed By: #### L 500.4100, L4600.0100, L500.4050, L505.7010, L100.0100, L503.7505, L501.1400, L101.9900, L3100.5475, L501.6710 #### [facility] [address] [place], [address] AST [Catalytic activity/Vol] 17 U/L Normal <=31 [facility] Comment on above: Performed By: #### L 500.4100, L4600.0100, L500.4050, L505.7010, L100.0100, L503.7505, L501.1400, L101.9900, L3100.5475, L501.6710 #### [facility] [address] [place], [place], [id number] Bilirubin [Mass/Vol] 0.18 mg/dL Normal 0.00-1.30 [facility] Comment on above: Performed By: #### L 500.4100, L4600.0100, L500.4050, L505.7010, L100.0100, L503.7505, L501.1400, L101.9900, L3100.5475, L501.6710 #### [facility] [address] [place], [address] BUN/CRE 10.5 RATIO Normal 10-20 [facility] Comment on above: Performed By: #### L 500.4100, L4600.0100, L500.4050, L505.7010, L100.0100, L503.7505, L501.1400, L101.9900, L3100.5475, L501.6710 #### [facility] [address] [place], [address] Calcium [Mass/Vol] 9.5 mg/dL Normal 7.6-11.0 [facility] Comment on above: Performed By: #### L 500.4100, L4600.0100, L500.4050, L505.7010, L100.0100, L503.7505, L501.1400, L101.9900, L3100.5475, L501.6710 #### [facility] [address] [place], [address] Chloride [Moles/Vol] 103 mmol/L Normal 98-108 [facility] Comment on above: Performed By: #### L 500.4100, L4600.0100, L500.4050, L505.7010, L100.0100, L503.7505, L501.1400, L101.9900, L3100.5475, L501.6710 #### [facility] [address] [place], [address] CO2 [Moles/Vol] 18.7 mmol/L Low 21.0-32.0 [facility] Comment on above: Performed By: #### L 500.4100, L4600.0100, L500.4050, L505.7010, L100.0100, L503.7505, L501.1400, L101.9900, L3100.5475, L501.6710 #### [facility] [address] [place], [address] Creatinine [Mass/Vol] 1.07 mg/dL Normal 0.70-1.20 [facility] Comment on above: Performed By: #### L 500.4100, L4600.0100, L500.4050, L505.7010, L100.0100, L503.7505, L501.1400, L101.9900, L3100.5475, L501.6710 #### [facility] [address] [place], [address] GAP 14 Normal 5-15 [facility] Comment on above: Performed By: #### L 500.4100, L4600.0100, L500.4050, L505.7010, L100.0100, L503.7505, L501.1400, L101.9900, L3100.5475, L501.6710 #### [facility] [address] [place], [place], [id number] GFR/1.73 sq M.predicted among non-blacks MDRD (S/P/Bld) [Vol rate/Area] 63 mL/min/{1.73_m2} Normal >60 [facility] Comment on above: Result Comment: mL/m in/1.73m2 CKD-EPI Creatinine Equation (2020) Performed By: #### L 500.4100, L4600.0100, L500.4050, L505.7010, L100.0100, L503.7505, L501.1400, L101.9900, L3100.5475, L501.6710 #### [facility] [address] [place], [place], [id number] Globulin (S) [Mass/Vol] 2.8 g/dL Normal 2.2-4.2 [facility] Comment on above: Performed By: #### L 500.4100, L4600.0100, L500.4050, L505.7010, L100.0100, L503.7505, L501.1400, L101.9900, L3100.5475, L501.6710 #### [facility] [address] [place], [place], [id number] (973) Glucose [Mass/Vol] 81 mg/dL Normal 70-99 [facility] Comment on above: Performed By: #### L 500.4100, L4600.0100, L500.4050, L505.7010, L100.0100, L503.7505, L501.1400, L101.9900, L3100.5475, L501.6710 #### [facility] [address] [place], [address] Potassium [Moles/Vol] 4.1 mmol/L Normal 3.3-5.1 [facility] Comment on above: Performed By: #### L 500.4100, L4600.0100, L500.4050, L505.7010, L100.0100, L503.7505, L501.1400, L101.9900, L3100.5475, L501.6710 #### [facility] [address] [place], [address] Sodium [Moles/Vol] 135 mmol/L Normal 133-145 [facility] Comment on above: Performed By: #### L 500.4100, L4600.0100, L500.4050, L505.7010, L100.0100, L503.7505, L501.1400, L101.9900, L3100.5475, L501.6710 #### [facility] [address] [place], [address] T PROT 7.0 g/dL Normal 5.9-8.4 [facility] Comment on above: Performed By: #### L 500.4100, L4600.0100, L500.4050, L505.7010, L100.0100, L503.7505, L501.1400, L101.9900, L3100.5475, L501.6710 #### [facility] [address] [place], [address] Urea nitrogen [Mass/Vol] 11 mg/dL Normal 4-19 [facility] Comment on above: Performed By: #### L 500.4100, L4600.0100, L500.4050, L505.7010, L100.0100, L503.7505, L501.1400, L101.9900, L3100.5475, L501.6710 #### [facility] [address] [place], [address] Eosinophil percentageOrdered By: Davida Clifton on 05-27-2025 Eosinophils/100 WBC (Bld) 3.8 % 0-5 [facility] Erythrocyte Sed Rateon 05-27 SED RATE 17 mm/hr Normal 0-30 [facility] Comment on above: Performed By: #### L 500.4100, L4600.0100, L500.4050, L505.7010, L100.0100, L503.7505, L501.1400, L101.9900, L3100.5475, L501.6710 ####[facility] [address] [facility] [place], [place], [id number] Erythrocyte distribution wid th ratioOrdered By: Davida Clifton on 05-27-2025 Erythrocyte distribution width (RBC) [Ratio] 13.7 % 11.6-14.6 [facility] Erythrocyte distribution wid th standard deviationOrdered By: Davida Clifton on 05-27-2025 Erythrocyte distribution width (RBC) [Ratio] 44.7 fl High 35.1-43.9 [facility] Erythrocyte sedimentation ra teOrdered By: Davida Clifton on 05-27-2025 ESR (Bld) [Velocity] 17 mm/h 0-30 [facility] Foot min 3 Viewson 5 Foot min 3 Views [facility] Imaging Services [address] [place] [address] Foot min 3 Views MR#: [id number] Acct: [id number] Name: CHARBEL TURCIOS Rep #: [id number] : 1975 F 49 From: Nestor Sweet MD PCP: Dr. Steffi Thakur MD Status: REG CLI Study: Foot min 3 Views Date of Exam: 05/27/25 Exam# [id number] Ordering Dr: Davida Clitfon [employer]-C EXAM: XR Right Foot Complete, 3 or More Views CLINICAL INDICATION: PAIN TECHNIQUE: Frontal, lateral and oblique views of the right foot. COMPARISON: No relevant prior studies available. FINDINGS: BONES/JOINTS: Unremarkable. No acute fracture. No dislocation. SOFT TISSUES: Soft tissue swelling. RAD/Foot min 3 Views IMPRESSION: Soft tissue swelling. Reading Location[facility] CC: JEAN-PIERRE Clifton; Dr. Steffi Thakur MD Felting Machine Operator Helper: Signed Normal [facility] Glomerular filtration rate ( GFR) estimation/1.73 sq m using serum, plasma, or whole bOrdered By: Davida Clifton on 05-27-2025 GFR/1.73 sq M.predicted among non-blacks MDRD (S/P/Bld) [Vol rate/Area] 63 mL/min/{1.73_m2} >60 [facility] Comment on above: mL/min/1.73m2 CKD-EP I Creatinine Equation (2020) Hematocrit Auto (Bld) [Volum e fraction]Ordered By: Davida Clifton on 05-27-2025 Hematocrit (Bld) [Volume fraction] 43.7 % 37-47 [facility] Hemoglobin measurementOrdere d By: Davida Clifton on 05-27-2025 Hemoglobin (Bld) [Mass/Vol] 14.6 g/dL 12.0-15.0 [facility] Immature granulocytes/100 WB C Auto (Bld)Ordered By: Davida Clifton on 05-27-2025 Immature granulocytes/100 WBC (Bld) 0.400 % 0.0-0.9 [facility] Comment on above: IG% - Immature Granu locytes (promyelocytes, myelocytes and metamyelocytes) > 1% indicates that a LEFT SHIFT is Present. L503.7505on 05-27-2025 Natriuretic peptide B (Bld) [Mass/Vol] 41 pg/mL Normal <=900 [facility] Comment on above: Result Comment: Hear t Failure Unlikely: < 300 pg/mL Heart Failure Likely < 50 Years: > 450 pg/mL 50-75 Years: > 900 pg/mL >75 Years: > 1800 pg/mL Performed By: #### L 500.4100, L4600.0100, L500.4050, L505.7010, L100.0100, L503.7505, L501.1400, L101.9900, L3100.5475, L501.6710 ####[facility] [address] [place], [place], [id number] LDL calc ser/plasOrdered By: Davida Clifton on 05-27-2025 Cholesterol in LDL [Mass/Vol] 174 mg/dL [facility] Comment on above: Rcwcdecgev=958-099 m g/dL & Higher Pads=369 mg/dL or greater Laboratory - Chemistry and C hemistry - challengeOrdered By: Davida Clifton on 05-27-2025 AST [Catalytic activity/Vol] 17 U/L <32 [facility] Lipid Profileon 05-27-2025 CHOL:HDL 5.34 Normal [facility] Comment on above: Performed By: #### L 500.4100, L4600.0100, L500.4050, L505.7010, L100.0100, L503.7505, L501.1400, L101.9900, L3100.5475, L501.6710 #### [facility] [address] [place], [address] Cholesterol [Mass/Vol] 260 mg/dL High <=200 [facility] Comment on above: Result Comment: Chol esterol level, Desirable <200 mg/dL Borderline high cholesterol 200-239 mg/dL High cholesterol >=240 mg/dL Recommendations of the NCEP Adult Treatment Panel for the following risk-cutoff thresholds for the [place] population. Performed By: #### L 500.4100, L4600.0100, L500.4050, L505.7010, L100.0100, L503.7505, L501.1400, L101.9900, L3100.5475, L501.6710 #### [facility] [address] [place], [place], [phone]) Cholesterol in HDL [Mass/Vol] 49 mg/dL Normal [facility] Comment on above: Result Comment: Rachael onal Cholesterol Education Program (NCEP) guidelines: <40 mg/dL: Low HDL-cholesterol (major risk factor for CHD) >= 60 mg/dL: High HDL-cholesterol (negative risk factor for CHD) HDL-cholesterol is affected by a number of factors, e.g. smoking, exercise, hormones, sex and age. Performed By: #### L 500.4100, L4600.0100, L500.4050, L505.7010, L100.0100, L503.7505, L501.1400, L101.9900, L3100.5475, L501.6710 #### [facility] [address] [place], [address] Cholesterol in LDL [Mass/Vol] 174 mg/dL Normal [facility] Comment on above: Result Comment: Bord jaxjfu=024-204 mg/dL Higher Gulf=836 mg/dL or greater Performed By: #### L 500.4100, L4600.0100, L500.4050, L505.7010, L100.0100, L503.7505, L501.1400, L101.9900, L3100.5475, L501.6710 #### [facility] [address] [place], [address] Cholesterol in VLDL [Mass/Vol] 38 mg/dL Normal 5-40 [facility] Comment on above: Performed By: #### L 500.4100, L4600.0100, L500.4050, L505.7010, L100.0100, L503.7505, L501.1400, L101.9900, L3100.5475, L501.6710 #### [facility] [address] [place], [address] Triglyceride [Mass/Vol] 188 mg/dL Normal [facility] Comment on above: Result Comment: The drugs N-Acetylcysteine and Metamizole may falsely depress this assay. Normal range: <150 mg/dL Borderline High: 150-199 mg/dL High: 200-499 mg/dL Very High: >500 mg/dL Performed By: #### L 500.4100, L4600.0100, L500.4050, L505.7010, L100.0100, L503.7505, L501.1400, L101.9900, L3100.5475, L501.6710 #### [facility] [address] [place], [address] MCV (mean corpuscular volume ) determinationOrdered By: Davida Clifton on 05-27-2025 MCV (RBC) [Entitic vol] 89.4 fL 81-99 [facility] Mean corpuscular hemoglobin (MCH) determinationOrdered By: Davida Clifton on 05-27-2025 MCH (RBC) [Entitic mass] 29.9 pg 27.0-32.0 [facility] Mean corpuscular hemoglobin concentration (MCHC) determinationOrdered By: Davida Clifton on 05-27-2025 MCHC (RBC) [Mass/Vol] 33.4 g/dL 32-36 [facility] Mean platelet volume determi nationOrdered By: Davida Clifton on 05-27-2025 Platelet mean volume (Bld) [Entitic vol] 11.2 fL 6.2-12.0 [facility] Monocyte percentageOrdered B y: Davida Clifton on 05-27-2025 Monocytes/100 WBC (Bld) 10.0 % 0-10 [facility] Natriuretic peptide.B prohor brenda N-Terminal [Mass/volume] in Serum or PlasmaOrdered By: Davida Clifton on 05-27-2025 Natriuretic peptide.B prohormone N-Terminal [Mass/Vol] 41 pg/mL <900 [facility] Comment on above: Heart Failure Unlike ly: < 300 pg/mLHeart Failure Likely< 50 Years: > 450 pg/mL50-75 Years: > 900 pg/mL>75 Years: > 1800 pg/mL Neutrophil percentageOrdered By: Davida Clifton on 05-27-2025 Neutrophils/100 WBC (Bld) 51.1 % 47-70 [facility] Nucleated red blood cell per centageOrdered By: Davida Clifton on 05-27-2025 Nucleated RBC/100 WBC (Bld) [Ratio] 0 % 0-5 [facility] Platelet countOrdered By: Ra huber Clifton on 05-27-2025 Platelets (Bld) [#/Vol] 350 10*3/uL 150-450 [facility] Potassium measurement (mass/ volume)Ordered By: Davida Clifton on 05-27-2025 Potassium (Unsp spec) [Mass/Vol] 4.1 mmol/L 3.3-5.1 [facility] RBC Auto (Bld) [#/Vol]Ordere d By: Davida Clifton on 05-27-2025 RBC (Bld) [#/Vol] 4.89 10*6/uL 4.2-5.4 [facility] Rheumatoid Factoron 05-27-20 25 RHEUMATOID FAC < 10.0 Normal <15 [facility] Comment on above: Performed By: #### L 500.4100, L4600.0100, L500.4050, L505.7010, L100.0100, L503.7505, L501.1400, L101.9900, L3100.5475, L501.6710 ####[facility] [address] [place], [place], [address] Screening total cholesterol/ high density lipoprotein (HDL) cholesterol ratioOrdered By: Davidaclara Clifton on 05-27-2025 Cholesterol.total/Choles terol in HDL [Mass ratio] 5.34 {ratio} [facility] Serum creatinine measurement (mass/volume)Ordered By: Davida Clifton on 05-27-2025 Creatinine [Mass/Vol] 1.07 mg/dL 0.70-1.20 [facility] Serum globulin measurementOr dered By: Davida Clifton on 05-27-2025 Globulin (S) [Mass/Vol] 2.8 g/dL 2.2-4.2 [facility] Serum glucose measurement (m ass/volume)Ordered By: Davida Clifton on 05-27-2025 Glucose [Mass/Vol] 81 mg/dL 70-99 [facility] Serum or plasma C reactive p rotein measurement (mass/volume)Ordered By: Davida Clifton on 05-27-2025 CRP [Mass/Vol] mg/L 0.0-3.0 [facility] Serum or plasma alanine fields otransferase (ALT) measurementOrdered By: Davida Clifton on 05-27-2025 ALT [Catalytic activity/Vol] 28 U/L <35 [facility] Serum or plasma albumin calvin urement (mass/volume)Ordered By: Davida Clifton on 05-27-2025 Albumin [Mass/Vol] 4.2 g/dL 3.5-5.0 [facility] Serum or plasma albumin/glob ulin mass ratioOrdered By: Davida Etienne 05-27-2025 Albumin/Globulin [Mass ratio] 1.5 {ratio} 0.9-2.4 [facility] Serum or plasma alkaline amparo sphatase measurementOrdered By: Davidaclara Clifton on 05-27-2025 ALP [Catalytic activity/Vol] 90 U/L 35-104 [facility] Serum or plasma calcium calvin urement (mass/volume)Ordered By: Davida Clifton on 05-27-2025 Calcium [Mass/Vol] 9.5 mg/dL 7.6-11.0 [facility] Serum or plasma cholesterol in HDL measurement (mass/volume)Ordered By: Davida Clifton 05-27-2025 Cholesterol in HDL [Mass/Vol] 49 mg/dL >40 [facility] Comment on above: National Cholesterol Education Program (NCEP) guidelines:<40 mg/dL: Low HDL-cholesterol (major risk factor for CHD)>= 60 mg/dL: High HDL-cholesterol (negative risk factor for CHD)HDL-cholesterol is affected by a number of factors, e.g. smoking, exercise, hormones, sex and age. Serum or plasma cholesterol measurement (mass/volume)Ordered By: Davida Clifton on 05-27-2025 Cholesterol [Mass/Vol] 260 mg/dL High <201 [facility] Comment on above: Cholesterol level, D esirable <200 mg/dLBorderline high cholesterol 200-239 mg/dLHigh cholesterol >=240 mg/dLRecommendations of the NCEP Adult Treatment Panel for the following risk-cutoff thresholds for the [place] population. Serum or plasma cyclic citru llinated peptide IgG antibody assay (units/volume)Ordered By: Davida Clifton on 05-27-2025 Cyclic citrullinated peptide IgG Qn 5 units 0-19 [facility] Comment on above: Negative <20 Weak po sitive 20 - 39 Moderate positive 40 - 59 Strong positive >59Performed at: [facility] [place], [place] [id number] Director: Brock Alfaro PhD, Phone: [phone] Serum or plasma urea nitroge n measurement (mass/volume)Ordered By: Davida Clifotn on 05-27-2025 Urea nitrogen [Mass/Vol] 11 mg/dL 4-19 [facility] Serum or plasma uric acid me asurement (mass/volume)Ordered By: Davida Clifton on 05-27-2025 Urate [Mass/Vol] 3.7 mg/dL 2.6-6.0 [facility] Comment on above: The drugs N-Acetylcy steine and Metamizole may falsely depress this assay. Serum rheumatoid factor dete ctionOrdered By: Davida Clifton on 05-27-2025 Rheumatoid factor Ql (S) < 10.0 IU/mL <15 [facility] Sodium levelOrdered By: Shruti Clifton on 05-27-2025 Sodium [Moles/Vol] 135 mmol/L 133-145 [facility] Total proteinOrdered By: Brady Clifton on 05-27-2025 Protein [Mass/Vol] 7.0 g/dL 5.9-8.4 [facility] Triglycerides measurementOrd ered By: Davida Clifton on 05-27-2025 Triglyceride [Mass/Vol] 188 mg/dL <199 [facility] Comment on above: The drugs N-Acetylcy steine and Metamizole may falsely depress this assay. Normal range: <150 mg/dLBorderline High: 150-199 mg/dLHigh: 200-499 mg/dLVery High: >500 mg/dL Uric Acidon 05-27-2025 URIC 3.7 mg/dL Normal 2.6-6.0 [facility] Comment on above: Result Comment: The drugs N-Acetylcysteine and Metamizole may falsely depress this assay. Performed By: #### L 500.4100, L4600.0100, L500.4050, L505.7010, L100.0100, L503.7505, L501.1400, L101.9900, L3100.5475, L501.6710 #### [facility] [address] [place], [address] White blood cell (WBC) count Ordered By: Davida Clifton on 05-27-2025 WBC (Bld) [#/Vol] 10.4 10*3/uL 4.4-11.0 [facility] CBC W/Diff, Automatedon 10-0 -2023 Absolute Lymph 2.88 X10 3/uL Normal 0.83-4.51 [facility] Comment on above: Performed By: #### L 503.0105, L100.0100, L503.6550, L506.0250, L501.9520, L503.6030 ####[facility] [address] [place], [address] Absolute Neut 6.0 X10 3/uL Normal 2.0-7.7 [facility] Comment on above: Performed By: #### L 503.0105, L100.0100, L503.6550, L506.0250, L501.9520, L503.6030 ####[facility] [address] [place], [address] Basophils/100 WBC (Bld) 1.2 % High 0-1 [facility] Comment on above: Performed By: #### L 503.0105, L100.0100, L503.6550, L506.0250, L501.9520, L503.6030 ####[facility] [address] [place], [address] Eosinophils/100 WBC (Bld) 4.1 % Normal 0-5 [facility] Comment on above: Performed By: #### L 503.0105, L100.0100, L503.6550, L506.0250, L501.9520, L503.6030 ####[facility] [address] [place], [address] Erythrocyte distribution width (RBC) [Ratio] 14.6 % Normal 11.6-14.6 [facility] Comment on above: Performed By: #### L 503.0105, L100.0100, L503.6550, L506.0250, L501.9520, L503.6030 ####[facility] [address] [place], [address] Hematocrit (Bld) [Volume fraction] 44.0 % Normal 37-47 [facility] Comment on above: Performed By: #### L 503.0105, L100.0100, L503.6550, L506.0250, L501.9520, L503.6030 ####[facility] [address] [place], [address] Hemoglobin (Bld) [Mass/Vol] 14.4 g/dL Normal 12.0-15.0 [facility] Comment on above: Performed By: #### L 503.0105, L100.0100, L503.6550, L506.0250, L501.9520, L503.6030 ####[facility] [address] [place], [address] IG% 0.600 Normal 0.0-0.9 [facility] Comment on above: Result Comment: IG% - Immature Granulocytes (promyelocytes, myelocytes and metamyelocytes) > 1% indicates that a LEFT SHIFT is Present. Performed By: #### L 503.0105, L100.0100, L503.6550, L506.0250, L501.9520, L503.6030 ####[facility] [address] [place], [address] Lymphocytes/100 WBC (Bld) 27.0 % Normal 19-41 [facility] Comment on above: Performed By: #### L 503.0105, L100.0100, L503.6550, L506.0250, L501.9520, L503.6030 ####[facility] [address] [place], [address] MCH (RBC) [Entitic mass] 29.0 pg Normal 27.0-32.0 [facility] Comment on above: Performed By: #### L 503.0105, L100.0100, L503.6550, L506.0250, L501.9520, L503.6030 ####[facility] [address] [place], [address] MCHC (RBC) [Mass/Vol] 32.7 g/dL Normal 32-36 [facility] Comment on above: Performed By: #### L 503.0105, L100.0100, L503.6550, L506.0250, L501.9520, L503.6030 ####[facility] [address] [place], [address] MCV (RBC) [Entitic vol] 88.5 fL Normal 81-99 [facility] Comment on above: Performed By: #### L 503.0105, L100.0100, L503.6550, L506.0250, L501.9520, L503.6030 ####[facility] [address] [place], [address] Monocytes/100 WBC (Bld) 11.2 % High 0-10 [facility] Comment on above: Performed By: #### L 503.0105, L100.0100, L503.6550, L506.0250, L501.9520, L503.6030 ####[facility] [address] [place], [address] Neutrophils/100 WBC (Bld) 55.9 % Normal 47-70 [facility] Comment on above: Performed By: #### L 503.0105, L100.0100, L503.6550, L506.0250, L501.9520, L503.6030 ####[facility] [address] [place], [address] Nucleated RBC (Bld) [#/Vol] 0 10*3/uL Normal 0-5 [facility] Comment on above: Performed By: #### L 503.0105, L100.0100, L503.6550, L506.0250, L501.9520, L503.6030 ####[facility] [address] [place], [address] Platelet mean volume (Bld) [Entitic vol] 10.9 fL Normal 6.2-12.0 [facility] Comment on above: Performed By: #### L 503.0105, L100.0100, L503.6550, L506.0250, L501.9520, L503.6030 ####[facility] [address] [place], [address] Platelets (Bld) [#/Vol] 386 10*3/uL Normal 150-450 [facility] Comment on above: Performed By: #### L 503.0105, L100.0100, L503.6550, L506.0250, L501.9520, L503.6030 ####[facility] [address] [place], [address] RBC (Bld) [#/Vol] 4.97 10*6/uL Normal 4.2-5.4 [facility] Comment on above: Performed By: #### L 503.0105, L100.0100, L503.6550, L506.0250, L501.9520, L503.6030 ####[facility] [address] [place], [address] RDW SD 46.8 fl High 35.1-43.9 [facility] Comment on above: Performed By: #### L 503.0105, L100.0100, L503.6550, L506.0250, L501.9520, L503.6030 ####[facility] [address] [place], [address] WBC (Bld) [#/Vol] 10.7 10*3/uL Normal 4.4-11.0 [facility] Comment on above: Performed By: #### L 503.0105, L100.0100, L503.6550, L506.0250, L501.9520, L503.6030 ####[facility] [address] [place], [address] Ferritinon 08-16-2024 Ferritin [Mass/Vol] 21 ng/mL Normal 8-252 [facility] Comment on above: Order Comment: N Performed By: #### L 503.0105, L100.0100, L503.6550, L506.0250, L501.9520, L503.6030 ####[facility] [address] [place], [address](221) Folates, (Folic Acid)on 10-0 FOLATES 9.00 ng/mL Normal 3.1-55.4 [facility] Comment on above: Order Comment: N Performed By: #### L 503.0105, L100.0100, L503.6550, L506.0250, L501.9520, L503.6030 ####[facility] [address] [place], [address] Iron+Iron Binding Capacityon 08-16-2024 Iron [Mass/Vol] 64 ug/dL Normal 50-170 [facility] Comment on above: Order Comment: N Performed By: #### L 503.0105, L100.0100, L503.6550, L506.0250, L501.9520, L503.6030 ####[facility] [address] [place], [address] IRON SATURATION 15.0 Normal 15.0-55.0 [facility] Comment on above: Order Comment: N Performed By: #### L 503.0105, L100.0100, L503.6550, L506.0250, L501.9520, L503.6030 ####[facility] [address] [place], [address] TIBC 427 ug/dL Normal 250-450 [facility] Comment on above: Order Comment: N Performed By: #### L 503.0105, L100.0100, L503.6550, L506.0250, L501.9520, L503.6030 ####[facility] [address] [place], [address] Thyroid Stim Hormone (TSH)on 08-16-2024 TSH 2.830 uIU/mL Normal 0.358-3.740 [facility] Comment on above: Order Comment: N Performed By: #### L 503.0105, L100.0100, L503.6550, L506.0250, L501.9520, L503.6030 ####[facility] [address] [place], [address] Vitamin B12on 08-16-2024 Cobalamin (Vitamin B12) [Mass/Vol] 430 pg/mL Normal 211-911 [facility] Comment on above: Performed By: #### L 503.0105, L100.0100, L503.6550, L506.0250, L501.9520, L503.6030 ####[facility] [address] [place], [address] Basophil percentageOrdered B y: Steffi Thakur on 08-10-2023 Creatinine [Mass/Vol] 1.2 mg/dL 0.55-1.02 [facility] - Chemistry and C hemistry - challengeOrdered By: Steffi Thakur on 08-10-2023 GFR/1.73 sq M.predicted among non-blacks MDRD (S/P/Bld) [Vol rate/Area] 51.0000 mL/min/{1.73_m2} >60 [facility] Absolute lymphocyte countOrd ered By: Steffi Thakur on 06-17-2023 Lymphocytes Auto (Unsp spec) [#/Vol] 3.28 10*3/uL 0.83-4.51 [facility] Basophil percentageOrdered B y: Steffi Thakur on 06-17-2023 Basophils/100 WBC (Bld) 1.3 % 0-1 [facility] Bilirubin [Mass/Vol] 0.30 mg/dL 0.20-1.00 [facility] Comment on above: For patients on eltr ombopag therapy, use of Dimension [place] TBIL is not recommended. Chloride [Moles/Vol] 106 mmol/L 98-107 [facility] Eosinophils/100 WBC (Bld) 3.7 % 0-5 [facility] Glucose [Mass/Vol] 90 mg/dL 74-106 [facility] Neutrophils (Bld) [#/Vol] 6.1 10*3/uL 2.0-7.7 [facility] Neutrophils/100 WBC (Bld) 56.9 % 47-70 [facility] Potassium [Moles/Vol] 3.7 mmol/L 3.5-5.1 [facility] Protein [Mass/Vol] 7.4 g/dL 6.4-8.2 [facility] Sodium [Moles/Vol] 138 mmol/L 136-145 [facility] WBC (Bld) [#/Vol] 10.8 10*3/uL 4.4-11.0 [facility] Blood erythrocytes count (nu mber/volume)Ordered By: Steffi Thakur on 06-17-2023 RBC (Bld) [#/Vol] 5.04 10*6/uL 4.2-5.4 [facility] Blood hemoglobin measurement (mass/volume)Ordered By: Steffi Thakur on 06-17-2023 Hemoglobin (Bld) [Mass/Vol] 14.7 g/dL 12.0-15.0 [facility] Blood lymphocytes/100 leukoc ytesOrdered By: Steffi Thakur on 06-17-2023 Lymphocytes/100 WBC (Bld) 30.4 % 19-41 [facility] Blood monocytes/100 leukocyt esOrdered By: Steffi Thakur on 06-17-2023 Monocytes/100 WBC (Bld) 7.1 % 0-10 [facility] Blood platelet mean volumeOr dered By: Steffi Thakur on 06-17-2023 Platelet mean volume (Bld) [Entitic vol] 10.3 fL 6.2-12.0 [facility] Determination of erythrocyte mean corpuscular volume (MCV)Ordered By: Steffi Thakur on 06-17-2023 MCV (RBC) [Entitic vol] 87.5 fL 81-99 [facility] Hematocrit Auto (Bld) [Volum e fraction]Ordered By: Steffi Thakur on 06-17-2023 Hematocrit (Bld) [Volume fraction] 44.1 % 37-47 [facility] - Chemistry and C hemistry - challengeOrdered By: Steffi Thakur on 06-17-2023 ALP [Catalytic activity/Vol] 99 U/L 45-117 [facility] ALT [Catalytic activity/Vol] 46 U/L 13-56 [facility] CO2 [Moles/Vol] 24.0 mmol/L 21.0-32.0 [facility] Globulin (S) [Mass/Vol] 3.8 g/dL 2.2-4.2 [facility] Urea nitrogen/Creatinine [Mass ratio] 23.0 mg/mg 10-20 [facility] - Hematology and Cell countsOrdered By: Steffi Thakur on 06-17-2023 Erythrocyte distribution width (RBC) [Entitic vol] 44.5 fL 35.1-43.9 [facility] Erythrocyte distribution width (RBC) [Ratio] 13.9 % 11.6-14.6 [facility] Immature granulocytes/100 WBC (Bld) 0.600 % 0.0-0.9 [facility] Comment on above: IG% - Immature Granu locytes (promyelocytes, myelocytes and metamyelocytes) > 1% indicates that a LEFT SHIFT is Present. MCH (RBC) [Entitic mass] 29.2 pg 27.0-32.0 [facility] Nucleated RBC/100 WBC (Bld) [Ratio] 0 % 0-5 [facility] MCHC Auto (RBC) [Mass/Vol]Or dered By: Steffi Thakur on 06-17-2023 MCHC (RBC) [Mass/Vol] 33.3 g/dL 32-36 [facility] No Panel InformationOrdered By: Steffi Thakur on 06-17-2023 Estimated GFR (MDRD) Amer 101 mL/min >60 [facility] Comment on above: GFR Calc Estimated GFR (MDRD) Non-Af Amer 83 mL/min >60 [facility] Comment on above: Non- GFR Calc Thyroid Stimulating Hormone (TSH) 3.36 uIU/mL 0.358-3.74 [facility] Vitamin B12 Level > 2000 pg/mL 211-911 [facility] Vitamin D 25-Hydroxy 32.8 ng/mL [facility] Comment on above: Vitamin D 25(OH) Sta tus Range Deficiency <20 ng/mL (50nmol/L) Insufficiency 20 - 30 ng/mL (50 - 75 nmol/L) Sufficiency 30 - 100 ng/mL (75 - 250 nmol/L) Toxicity >100 ng/mL (>250 nmol/L) Platelets bldOrdered By: Delvis Thakur on 06-17-2023 Platelets (Bld) [#/Vol] 380 10*3/uL 150-450 [facility] Serum or plasma albumin calvin urement (mass/volume)Ordered By: Steffi Thakur on 06-17-2023 Albumin [Mass/Vol] 3.6 g/dL 3.2-5.0 [facility] Serum or plasma albumin/glob ulin mass ratioOrdered By: Steffi Thakur on 06-17-2023 Albumin/Globulin [Mass ratio] 0.9 {ratio} 0.9-2.4 [facility] Serum or plasma calcium calvin urement (mass/volume)Ordered By: Steffi Thakur on 06-17-2023 Calcium [Mass/Vol] 9.2 mg/dL 8.5-10.1 [facility] Serum or plasma creatinine m easurement (mass/volume)Ordered By: Steffi Thakur on 06-17-2023 Creatinine [Mass/Vol] 0.78 mg/dL 0.55-1.02 [facility] Comment on above: The validity of the calculated GFR & GFRAA in patients over 70 years has not been determined. Clinical correlation is essential. Serum or plasma urea nitroge n measurement (mass/volume)Ordered By: Steffi Thakur on 06-17-2023 Urea nitrogen [Mass/Vol] 18 mg/dL 7-18 [facility] Thin prep Papanicolaou smear with manual screeningOrdered By: Steffi Thakur on 06-17-2023 Thin prep Papanicolaou smear with manual screening 22 U/L 15-37 [facility] Thin prep Papanicolaou smear with manual screening 8 5-15 [facility] Cervical or vagninal specime n microscopic examination by cytology stain (reported ason 09-16-2022 Cytology report Cyto stain Doc (Cvx/Vag) Comment . [facility] Work Phone: Comment on above: The Pap smear is a s creening test designed to aid in thedetection of premalignant and malignant conditions of theuterine cervix. It is not a diagnostic procedure andshould not be used as the sole means of detecting cervicalcancer. Both false-positive and false-negative reports dooccur. Laboratory - Cytologyon Non Clinical Advisor Cyto stain Nom (Cvx/Vag) [ID] Comment . [facility] Work Phone: Comment on above: Alvin [place] [employer] hnologist (ASCP) Laboratory - Miscellaneous t estson 09-16-2022 Service comment (Unsp spec) [Interp] Comment . [facility] Work Phone: Comment on above: This liquid based Th inPrep(R) pap test was screened withthe use of an image guided system. Service comment (Unsp spec) [Interp] . . [facility] Work Phone: No Panel Informationon 09-16 Pap Smear Additional Comments 30-65 . [facility] Work Phone: Pathology report final diagnosis Narrative Comment . [facility] Work Phone: Comment on above: NEGATIVE FOR INTRAEP ITHELIAL LESION OR MALIGNANCY. Absolute lymphocyte counton 08-18-2022 Lymphocytes Auto (Unsp spec) [#/Vol] 2.50 10*3/uL 0.83-4.51 [facility] Work Phone: [phone] Basophil percentageon 2021 Basophils/100 WBC (Bld) 1.4 % 0-1 [facility] Work Phone: [phone] Bilirubin [Mass/Vol] 0.30 mg/dL 0.20-1.00 [facility] Work Phone: Comment on above: For patients on eltr ombopag therapy, use of Dimension Bradford TBIL is not recommended. Chloride [Moles/Vol] 108 mmol/L 98-107 [facility] Work Phone: [phone] Cholesterol [Mass/Vol] 249 mg/dL <200 Wo [facility] Work Phone: [phone] Comment on above: <200 mg/dL Desirable 200-240 mg/dL Borderline >240 mg/dL High Risk Eosinophils/100 WBC (Bld) 4.1 % 0-5 [facility] Work Phone: [phone] Glucose [Mass/Vol] 87 mg/dL 74-106 [facility] Work Phone: Neutrophils (Bld) [#/Vol] 4.1 10*3/uL 2.0-7.7 [facility] Work Phone: [phone] Neutrophils/100 WBC (Bld) 53.2 % 47-70 [facility] Work Phone: [phone] Potassium [Moles/Vol] 4.1 mmol/L 3.5-5.1 [facility] Work Phone: [phone] Protein [Mass/Vol] 7.2 g/dL 6.4-8.2 [facility] Work Phone: [phone] Sodium [Moles/Vol] 138 mmol/L 136-145 [facility] Work Phone: Triglyceride [Mass/Vol] 167 mg/dL <199 [facility] Work Phone: Comment on above: The drugs N-Acetylcy steine and Metamizole may falsely depress this assay.Serum Triglycerides Reference Interval Normal <150 mg/dL Borderline high 150 - 199 mg/dL High 200 - 499 mg/dL Very High > or = 500 mg/dL WBC (Bld) [#/Vol] 7.7 10*3/uL 4.4-11.0 [facility] Work Phone: Blood erythrocytes count (nu mber/volume)on 08-18-2022 RBC (Bld) [#/Vol] 4.96 10*6/uL 4.2-5.4 [facility] Work Phone: Blood hemoglobin measurement (mass/volume)on 08-18-2022 Hemoglobin (Bld) [Mass/Vol] 14.6 g/dL 12.0-15.0 [facility] Work Phone: Blood lymphocytes/100 leukoc yteson 08-18-2022 Lymphocytes/100 WBC (Bld) 32.4 % 19-41 [facility] Work Phone: Blood monocytes/100 leukocyt eson 08-18-2022 Monocytes/100 WBC (Bld) 8.5 % 0-10 [facility] Work Phone: Blood platelet mean volumeon 08-18-2022 Platelet mean volume (Bld) [Entitic vol] 11.5 fL 6.2-12.0 [facility] Work Phone: Determination of erythrocyte mean corpuscular volume (MCV)on 08-18-2022 MCV (RBC) [Entitic vol] 89.9 fL 81-99 [facility] Work Phone: Hematocrit Auto (Bld) [Volum e fraction]on 08-18-2022 Hematocrit (Bld) [Volume fraction] 44.6 % 37-47 [facility] Work Phone: Laboratory - Chemistry and C hemistry - challengeon 08-18-2022 ALP [Catalytic activity/Vol] 83 U/L 45-117 [facility] Work Phone: ALT [Catalytic activity/Vol] 35 U/L 13-56 [facility] Work Phone: CO2 [Moles/Vol] 25.0 mmol/L 21.0-32.0 [facility] Work Phone: Cobalamin (Vitamin B12) [Mass/Vol] 217 pg/mL 211-911 [facility] Work Phone: Globulin (S) [Mass/Vol] 3.7 g/dL 2.2-4.2 [facility] Work Phone: Urea nitrogen/Creatinine [Mass ratio] 15.9 mg/mg 10-20 [facility] Work Phone: Laboratory - Hematology and Cell countson 08-18-2022 Erythrocyte distribution width (RBC) [Entitic vol] 46.1 fL 35.1-43.9 [facility] Work Phone: Erythrocyte distribution width (RBC) [Ratio] 13.9 % 11.6-14.6 [facility] Work Phone: Immature granulocytes/100 WBC (Bld) 0.400 % 0.0-0.9 [facility] Work Phone: Comment on above: IG% - Immature Granu locytes (promyelocytes, myelocytes and metamyelocytes) > 1% indicates that a LEFT SHIFT is Present. MCH (RBC) [Entitic mass] 29.4 pg 27.0-32.0 [facility] Work Phone: Nucleated RBC/100 WBC (Bld) [Ratio] 0 % 0-5 [facility] Work Phone: MCHC Auto (RBC) [Mass/Vol]on 08-18-2022 MCHC (RBC) [Mass/Vol] 32.7 g/dL 32-36 [facility] Work Phone: No Panel Informationon 08-18 Estimated GFR (MDRD) Amer 105 mL/min >60 [facility] Work Phone: Comment on above: GFR Calc Estimated GFR (MDRD) Non-Af Amer 87 mL/min >60 [facility] Work Phone: Comment on above: Non- GFR Calc Follicle Stimulating Hormone 4.0 mIU/mL [facility] Work Phone: Comment on above: NORMAL REFERENCE RAN GES FEMALE FOLLICULAR 2.3 - 12.6 mIU/mL MID-CYCLE PEAK 5.2 - 17.5 mIU/mL LUTEAL 1.7 - 12.9 mIU/mL POST-MENOPAUSAL ON MHT 5.9 - 72.8 mIU/mL NOT ON MHT 12.7 - 132.2 mlU/mL MALE 0.7 - 10.8 mIU/mL Thyroid Stimulating Hormone (TSH) 3.22 uIU/mL 0.358-3.74 [facility] Work Phone: Vitamin D 25-Hydroxy 20.7 ng/mL [facility] Work Phone: Comment on above: Vitamin D 25(OH) Sta tus Range Deficiency <20 ng/mL (50nmol/L) Insufficiency 20 - 30 ng/mL (50 - 75 nmol/L) Sufficiency 30 - 100 ng/mL (75 - 250 nmol/L) Toxicity >100 ng/mL (>250 nmol/L) Platelets bldon 08-18-2022 Platelets (Bld) [#/Vol] 343 10*3/uL 150-450 [facility] Work Phone: Serum or plasma albumin calvin urement (mass/volume)on 08-18-2022 Albumin [Mass/Vol] 3.5 g/dL 3.2-5.0 [facility] Work Phone: Serum or plasma albumin/glob ulin mass ratioon 08-18-2022 Albumin/Globulin [Mass ratio] 0.9 {ratio} 0.9-2.4 [facility] Work Phone: Serum or plasma calcium calvin urement (mass/volume)on 08-18-2022 Calcium [Mass/Vol] 8.7 mg/dL 8.5-10.1 [facility] Work Phone: Serum or plasma cholesterol in HDL measurement (mass/volume)on 08-18-2022 Cholesterol in HDL [Mass/Vol] 46 mg/dL >40 [facility] Work Phone: Comment on above: The drugs N-Acetylcy steine and Metamizole may falsely depress this assay. Reference Range HDL <40 mg/dL Low HDL Cholesterol HDL >or= 60 mg/dL High HDL Cholesterol Serum or plasma cholesterol in VLDL measurement (mass/volume)on 08-18-2022 Cholesterol in VLDL [Mass/Vol] 33 mg/dL 5-40 [facility] Work Phone: Serum or plasma creatinine m easurement (mass/volume)on 08-18-2022 Creatinine [Mass/Vol] 0.76 mg/dL 0.55-1.02 [facility] Work Phone: Comment on above: The validity of the calculated GFR & GFRAA in patients over 70 years has not been determined. Clinical correlation is essential. Serum or plasma estradiol (E 2) measurement (mass/volume)on 08-18-2022 E2 [Mass/Vol] 116.1 pg/mL [facility] Work Phone: Comment on above: NORMAL REFERENCE RAN GES FEMALE FOLLICULAR 21.4 - 164.8 pg/mL MID-CYCLE PEAK 49.9 - 367.2 pg/mL LUTEAL 40.2 - 259.0 pg/mL POST-MENOPAUSAL ON MHT <11.0 - 462.1 pg/mL NOT ON MHT <11.0 - 58.3 pg/mL MALE <11.0 - 52.5 pg/mL NOTE:[employer] HAS CONFIRMED THE DRUG FULVETRANT (FASLODEX) MAY CAUSE FALSELY ELEVATED ESTRADIOL RESULTS WHEN USING THIS TEST METHOD. IF PATIENT IS TAKING FULVESTRANT AN ALTERNATIVE METHOD SHOULD BE USED TO DETERMINE ESTRADIOL CONCENTRATION. Serum or plasma low density lipoprotein (LDL) cholesterol measurement (mass/volume)on 08-18-2022 Cholesterol in LDL [Mass/Vol] 170 mg/dL 0-130 [facility] Work Phone: Serum or plasma progesterone measurement (mass/volume)on 08-18-2022 Progesterone [Mass/Vol] 7.73 ng/mL See Comment [facility] Work Phone: Comment on above: Progesterone Referen ce Table: UNITS Female: Follicular 0.15 - 1.40 ng/mL Luteal 3.34 - 25.56 ng/mL Mid-luteal 4.44 - 28.03 ng/mL Postmenopausal 0.0 - 0.73 ng/mL : 1st Trimester 11.22 - 90.00 ng/mL 2nd Trimester 25.55 - 89.40 ng/mL 3rd Trimester 48.40 -422.50 ng/mL Serum or plasma urea nitroge n measurement (mass/volume)on 08-18-2022 Urea nitrogen [Mass/Vol] 12 mg/dL 7-18 [facility] Work Phone: Thin prep Papanicolaou smear with manual screeningon 08-18-2022 Thin prep Papanicolaou smear with manual screening 14 U/L 15-37 [facility] Work Phone: Thin prep Papanicolaou smear with manual screening 5 5-15 [facility] Work Phone: Whole blood hemoglobin A1c/t otal hemoglobin ratio (mass fraction)on 08-18-2022 HbA1c (Bld) [Mass fraction] 5.5 % 3.8-5.6 [facility] Work Phone: Comment on above: Normal < 5.7 % Predi abetic 5.7 - 6.4 % Diabetic >or= 6.5 % Please note range changes. CNOVon 04-18-2022 CNOV Office Visit ([facility]) KRISTIN TURCIOS ([id number]) 1975 F Date Time Provider Department 04/18/22 3:20 PM NEETU SANCHEZ [facility] During your visit today, we recorded the following information about you: Temperature Pulse Respiration Blood pressure 98.2 degrees 90/minute 20/minute 120/78 Weight 89.4 kg Neetu Sanchez APRN.CNP 04/18/2022 3:36 PM Signed covid test ordered You will be notified in 24 -48 hours, results available on [employer] Home isolation until covid results are back Rest, increase water intake Motrin or Tylenol as needed for fever or pain. Salt water gargles, chloraseptic spray or lozenges as needed for sore throat. Warm beverages, honey. Nasal saline spray as needed Cool mist humidifier at night Tylenol (generic acetaminophen) 500 mg-2 tabs every 8 hrs. as needed for fever and aches Ibuprofen 600 mg (3-200mg tablets) every 6 hours -Mucinex (generic is fine) Guaifenesin 1200 mg twice daily to help with cough and to thin out mucus * Seek medical care immediately, call 911, go to ER if you have chest pain, difficulty breathing, shortness of breath, inability to swallow. Follow the CDC guidelines for isolation for covid positive 1. Everyone, regardless of vaccination status, should stay home for 5 days. 2. If you have no symptoms or your symptoms are resolving after 5 days, you can leave your house. 3. Continue to wear a mask around others for 5 additional days. If you have a fever, continue to stay home until your fever resolves, even if it is longer than 5 days. Please monitor your symptoms, and for any worrisome symptoms. Continue comfort measures for symptoms as you would for a cold. Any worsening symptoms follow up with PCP or ER. Neetu Sanchez APRN.CNP 04/18/2022 3:57 PM Signed Subjective The history is provided by the patient. No historic interpreter was used. HPI Kristin Turcios is a 46 year old female who presents today for CC of exposure to covid, positive home test, and upper respiratory symptoms Symptoms include: Fever (?100.4F): No or Chills: No Cough: Yes Shortness of breath: No or Difficulty breathing: No Fatigue: No Muscle aches: No Headache: Yes New loss of smell or taste: No Sore throat: No Nasal congestion: Yes or Rhinorrhea: Yes Nausea: No or Vomiting: No Diarrhea: No OTC meds/remedies that patient has tried: acetaminophen and NSAIDs. High risk category assessment Chronic lung disease Exposures: Sick contacts? Yes Family or close contacts with confirmed/probable COVID-19 in last 14 days? Yes BP 120/78 Pulse 90 Temp 36.8 ?C (98.2 ?F) Resp 20 Wt 89.4 kg (197 lb 3.2 oz) SpO2 97% Social History Tobacco Use - Smoking status: Current Every Day Smoker - Smokeless tobacco: Never Used Substance Use Topics - Alcohol use: Not on file - Drug use: Not on file No past medical history on file. I have confirmed and edited as necessary, the [facility] Review of Systems Constitutional: Negative for chills, fever and malaise/fatigue. HENT: Positive for congestion and sinus pain. Negative for ear pain and sore throat. Respiratory: Positive for cough. Negative for sputum production, shortness of breath and wheezing. Cardiovascular: Negative for chest pain. Gastrointestinal: Negative for abdominal pain, diarrhea, nausea and vomiting. Musculoskeletal: Negative for myalgias. Neurological: Positive for headaches. Objective Physical Exam Vitals and nursing note reviewed. HENT: Head: Normocephalic and atraumatic. Right Ear: Tympanic membrane, ear canal and external ear normal. Left Ear: Tympanic membrane, ear canal and external ear normal. Nose: Mucosal edema, congestion and rhinorrhea present. Right Sinus: No maxillary sinus tenderness or frontal sinus tenderness. Left Sinus: No maxillary sinus tenderness or frontal sinus tenderness. Mouth/Throat: Pharynx: Uvula midline. No oropharyngeal exudate or posterior oropharyngeal erythema. Cardiovascular: Rate and Rhythm: Normal rate and regular rhythm. Heart sounds: Normal heart sounds. Pulmonary: Effort: Pulmonary effort is normal. Breath sounds: Normal breath sounds. Lymphadenopathy: Head: Right side of head: No submental, submandibular or tonsillar adenopathy. Left side of head: No submental, submandibular or tonsillar adenopathy. Cervical: No cervical adenopathy. Skin: General: Skin is warm and dry. Neurological: Mental Status: She is alert. Psychiatric: Mood and Affect: Affect normal. ASSESSMENT/PLAN: 1. Exposure to COVID-19 virus - ICD9: V01.79, ICD10: Z20.822 (primary diagnosis) - COVID WITH FLUA+B, ROUTINE 2. Suspected COVID-19 virus infection - ICD9: V01.79, ICD10: Z20.822 - COVID WITH FLUA+B, ROUTINE 3. Upper respiratory symptom - ICD9: 786.9, ICD10: R09.89 Home isolation Testing ordered Comfort measures discussed - see patient instructions. Wh (more content not included)... Normal [facility] Vital Signs Date Time Vital Sign Value Performing Clinician Diana toscano 06-20-2025 14:43-0400 Body height 160.[address] Steffi Thakur MD Work Phone: [facility] 06-20-2025 14:43-0400 Body mass index (BMI) [Ratio] 36.8 kg/m2 Dr. Steffi Thakur MD Work Phone: [facility] 06-20-2025 14:43-0400 Body weight 94.[address] Steffi Thakur MD Work Phone: [facility] 06-20-2025 14:43-0400 Diastolic blood pressure 74 mm[Hg] Dr. Steffi Thakur MD Work Phone: [facility] 06-20-2025 14:43-0400 Heart rate 92 /min Dr. Steffi Thakur MD Work Phone: [facility] 06-20-2025 14:43-0400 Respiratory rate 17 /min Dr. Steffi Thakur MD Work Phone: [facility] 06-20-2025 14:43-0400 SaO2% (BldA) [Mass fraction] 98 % Dr. Steffi Thakur MD Work Phone: [facility] 06-20-2025 14:43-0400 Systolic blood pressure 119 mm[Hg] Dr. Steffi Thakur MD Work Phone: [facility] 04-18-2022 15:27-0400 Body temperature 98.2 [degF] Neetu Laura LINUX SYSTEM ENGINEER.REGISTERED TRAVEL NURSE Work Phone: [facility] 04-18-2022 15:27-0400 Body weight 89.45 kg Neetu Laura LINUX SYSTEM ENGINEER.REGISTERED TRAVEL NURSE Work Phone: [facility] 04-18-2022 15:27-0400 Diastolic blood pressure 78 mm[Hg] Neetu Laura LINUX SYSTEM ENGINEER.REGISTERED TRAVEL NURSE Work Phone: [facility] 04-18-2022 15:27-0400 Heart rate 90 /min Neetu Laura LINUX SYSTEM ENGINEER.REGISTERED TRAVEL NURSE Work Phone: [facility] 04-18-2022 15:27-0400 Respiratory rate 20 /min Neetu Laura LINUX SYSTEM ENGINEER.REGISTERED TRAVEL NURSE Work Phone: [facility] 04-18-2022 15:27-0400 SaO2% (BldA) [Mass fraction] 97 % Neetu Laura LINUX SYSTEM ENGINEER.REGISTERED TRAVEL NURSE Work Phone: [facility] 04-18-2022 15:27-0400 Systolic blood pressure 120 mm[Hg] Neetu Laura LINUX SYSTEM ENGINEER.REGISTERED TRAVEL NURSE Work Phone: [facility] Encounters Encounter Date Encounter Type Care Provider Facility Start: 08-06-2025 ambulatory Raven Lambert NP Facil ity:[facility] Start: 07-26-2025 ambulatory Joey Ortiz lity:[facility] Start: 06-28-2025 ambulatory Berto Zuñiga Facility:[facility] Start: 06-28-2025 Non-patient / Non-visit Dr. Mendy BANKS -[facility] Start: 06-28-2025 End: 06-28-[address] Steffi Thakur MD Work Phone: -[facility] Start: 06-28-2025 End: 06-28-2025 Patient encounter procedure Davida Clifton RETAIL WAREHOUSE ASSOCIATE-C -[facility] Work Phone: Start: 06-28-2025 End: 06-28-2025 ambulatory Steffi Thakur Facility:[facility] Start: 06-20-2025 End: 06-20-[address] Joey Marks MD -[facility] Work Phone: Start: 06-20-2025 End: 06-20-[address] Steffi Thakur MD Work Phone: -[facility] Start: 05-30-2025 Encounter for genera l adult medical examination with abnormal findings Davida Clifton [facility] Start: 05-27-2025 End: 05-27-[address] Steffi Thakur MD Work Phone: -Laboratory [facility] Start: 05-27-2025 End: 05-27-2025 Patient encounter procedure Davida Clifton RETAIL WAREHOUSE ASSOCIATE-C -Laboratory [facility] Start: 05-27-2025 End: 05-27-2025 ambulatory [facility] Facility:[facility] Start: 12-04-2024 ambulatory [facility] Facility: [facility] Start: 08-16-2024 End: 08-16-2024 ambulatory [facility] Facility:[facility] Start: 09-26-2023 End: 09-26-2023 ambulatory [facility] Work Phone: Start: 09-26-2023 End: 09-26-2023 Patient encounter procedure [facility]-Radiology, [place] Work Phone: Start: 08-11-2023 End: 08-11-2023 Patient encounter procedure [facility]-Sleep Lab Work Phone: Start: 08-10-2023 End: 08-10-2023 ambulatory [facility] Work Phone: Start: 08-10-2023 End: 08-10-2023 Patient encounter procedure [facility]-Cat Scan, [facility] Work Phone: Start: 07-27-2023 End: 07-27-2023 Patient encounter procedure [facility]Sleep Lab Work Phone: Start: 07-25-2023 End: 07-25-2023 ambulatory [facility] Work Phone: Start: 07-25-2023 End: 07-25-2023 Patient encounter procedure [facility], [place] Work Phone: Start: 06-17-2023 End: 06-17-2023 ambulatory [facility] Work Phone: Start: 06-17-2023 End: 06-17-2023 Patient encounter procedure [facility]atory, [place] Work Phone: Start: 10-21-2022 End: 10-21-2022 ambulatory [facility] Work Phone: Start: 10-21-2022 End: 10-21-2022 Patient encounter procedure [facility]-Outpatient Breast Imaging Start: 09-16-2022 End: 09-16-2022 ambulatory [facility] Work Phone: Start: 09-16-2022 End: 09-16-2022 Patient encounter procedure [facility]-Laboratory, Specimen Start: 08-18-2022 End: 08-18-2022 ambulatory [facility] Work Phone: Start: 08-18-2022 End: 08-18-2022 Patient encounter procedure [facility]-Laboratory, [facility] Ruffin [facility] Start: 04-18-2022 End: 04-18-2022 Patient encounter procedure Neetu Sanchez LINUX SYSTEM ENGINEER.[facility] Work Phone: [facility] Comment on above: Exposure to COVID-19 virus (Primary Dx); Suspected COVID-19 virus infection; Upper respiratory symptom Procedures Date Procedure Procedure Detail Performing Clinician Start: 05-27-2025 X-ray of foot, three or more views Dr. Steffi Thakur MD Work Phone: Start: 05-27-2025 X-ray of chest, PA a nd lateral views Dr. Steffi Thakur MD Work Phone: Start: 05-27-[address] Delvis Thakur MD Work Phone: Comment on above: Performed at: [address] [id number] Director: Brock Alfaro PhD, Phone: [phone] Start: 09-26-2023 X-ray of lumbar spin e, two or three views Start: 09-26-2023 Radiography of sacrococcygeal spine Start: 08-10-2023 CT of thorax with contrast Start: 07-25-2023 Plain chest X-ray Start: 10-21-2022 Screening mammography Plan of Treatment Date Care Activity Detail Author Start: 09-16-2022 [facility] Work Phone: Start: 07-15-2022 Influenza vaccination INFLUENZ A (Season Ended) [facility] Start: 04-18-2022 End: 05-02-2022 Influenza virus A and B RNA and SARS-CoV-2 (COVID-19) N gene panel - Respiratory specimen by LEXIE with probe detection [facility] Work Phone: Comment on above: Expected: 04/18/2022 , Expires: 05/02/2022 Start: 2019 COLOGUARD (FIT-DNA) COLOGUARD (FIT-D NA) [facility] Start: 2019 Colonoscopy COLONOSCOPY [facility] Start: 2019 COLORECTAL CANCER SCREENING COLORECTAL CANCER SCREENING [facility] Start: [address] COLONOGRAPHY [facility] Start: 2019 DIABETES SCREEN DIABETES SCREEN [facility] Start: 2019 FECAL OCCULT BLOOD FECAL OCCULT BLOO D [facility] Start: 2019 LIPID SCREEN LIPID SCREEN [facility] Start: 2019 SIGMOIDOSCOPY SIGMOIDOSCOPY [facility] Start: 2014 Mammography MAMMOGRAM [facility] Start: 2004 HPV TESTING HPV TESTING [facility] Start: 1995 PAP TESTING PAP TESTING [facility] Start: 1993 Urine microalbumin profile DTAP,TDAP,TD (1 - Tdap) [facility] Start: 1992 HEPATITIS C SCREENING HEPATITIS C SC REENING [facility] Start: 1992 HIV SCREENING HIV SCREENING [facility] Start: 1986 Adult depression screening assessment DEPRESSION SCREENING [facility] Start: 1980 PNEUMOCOCCAL (1 - PCV) PNEUMOCOCCAL (1 - PCV) [facility] Start: 1979 COVID-19 VACCINE (#1) COVID-19 VACCI NE (#1) [facility] Colonoscopy [facility] Path report.final Dx Spec [facility] Work Phone: [facility] Payers Date Payer Category Payer Private Health Insurance [id number] 2024 Self-pay [id number] 2021 Unknown EARNEST GUTIERREZ PPO [id number] 2021-Present [phone] [facility] [id number] [place] [address] PPO [id number] 2016 Unknown EARNEST [id number] 2016 Unknown [id number] Unknown [id number] Unknown [id number] Unknown [id number] Unknown [id number] Unknown [id number] Unknown [id number] Unknown [id number] Unknown [id number] Social History Date Type Detail Facility Start: 04-18-2022 End: 06-20-2025 Tobacco smoking status NDIS Smokes tobacco daily [facility] Start: 04-18-2022 Tobacco use and exposure Smokeless tobacco non-user [facility] Start: 1975 Sex Assigned At Not on file [facility] Start: 04-08-2022 End: 04-18-2022 Exposure to SARS-CoV-2 (event) Not sure [facility] Work Phone: Start: 11-24-2021 End: 11-24-2021 Tobacco smoking status NHIS Unknown if ever smoked [facility] Start: 1975 Sex Assigned At Female W [facility] Medical Equipment Procedure Code Equipment Code Equipment Origin al Text Equipment Identifier Dates Cystoscopic insertion of stent STENT,URETERAL PIGTAIL [id number] FDA Start: 08-02-2021 Cystoscopic insertion of stent STENT,URETERAL PIGTAIL [id number] FDA Start: 08-02-2021 Cystoscopic insertion of stent STENT,URETERAL PIGTAIL [id number] FDA Start: 08-02-2021 Cystoscopic insertion of stent STENT,URETERAL PIGTAIL [id number] FDA Start: 08-02-2021 Cystoscopic insertion of stent STENT,URETERAL PIGTAIL [id number] FDA Start: 08-02-2021 Cystoscopic insertion of stent STENT,URETERAL PIGTAIL [id number] FDA Start: 08-02-2021 Cystoscopic insertion of stent STENT,URETERAL PIGTAIL [id number] FDA Start: 08-02-2021 Cystoscopic insertion of stent STENT,URETERAL PIGTAIL [id number] FDA Start: 08-02-2021 Cystoscopic insertion of stent STENT,URETERAL PIGTAIL [id number] FDA Start: 08-02-2021 Cystoscopic insertion of stent STENT,URETERAL PIGTAIL [id number] FDA Start: 08-02-2021 Clinical Notes 04-18-2022 to 06-20-2025 Note Date & Type Note Facility 06-20-2025 Evaluation note Diagnosis Onset Date Resolution Bloating acute June 20 2:26pm Encounter for screening for malignant neoplasm of colon acute June 20, 2025 2:26pm [facility] Work Phone: [phone]) 655-760007-15-2025 Radiology Diagnostic study note [facility] Imaging Services [address] [place], [place] [address] Foot min 3 Views MR#: [id number] Acct: [id number] Name: CHARBEL TURCIOS Rep #: [id number] : 1975 F 49 From: Radha Sweet MD PCP: Dr. Steffi Thakur MD Status: REG CLI Study:Foot min 3 Views Date of Exam: Exam# [id number] Ordering Dr: Ra huber Clifton EXAM: XR Right Foot Complete, 3 or More Views CLINICAL INDICATION: PAIN TECHNIQUE: Frontal, lateral and oblique views of the right foot. COMPARISON: No relevant prior studies available. FINDINGS: BONES/JOINTS: Unremarkable. No acute fracture. No dislocation. SOFT TISSUES: Soft tissue swelling. RAD/Foot min 3 Views IMPRESSION: Soft tissue swelling. Reading Location: [facility] CC: RETAIL WAREHOUSE ASSOCIATE-C Davida Clifton; Dr. Steffi Thakur MD ~ Felting Machine Operator Helper: Signed [facility]07-14-2025 Radiology Diagnostic study note [facility] Imaging Services [address] [place], [place] [address] Chest PA and Lateral MR#: [id number] Acct: [id number] Name: CHARBEL TURCIOS Rep #: [id number] : 1975 F 49 From: Jude Carroll DO PCP: Dr. Steffi Thakur MD Status: REG CLI Study:Chest PA and Lateral Date of Exam: 05/27/25 Exam# [id number] Ordering Dr: Ra huber Clifton PROCEDURE: CHEST PA AND LATERAL 05/27/2025 REASON FOR EXAM: CHEST PAIN TECHNIQUE: CHEST PA AND LATERAL COMPARISON: Chest CT study dated 08/10/2023 and chest x-ray study dated 07/25/2023 FINDINGS: Hardware: None Heart: Heart size and configuration are within normal limits. Mediastinum: Pulmonary vasculature and hilar structures are unremarkable. Trachea is midline. Mediastinal silhouette is within normal limits. Lungs: Expanded and clear without evidence of atelectasis, consolidation, effusion or pneumonic infiltrate. There are no pneumothoraces. Bones: Very mild degenerative changes of the thoracic spine are noted. RAD/Chest PA and Lateral IMPRESSION: No acute cardiopulmonary process is identified radiographically. If the patient's symptoms do continue or persist, a follow up chest x-ray is recommended. Reading Location: [id number] CC: JEAN-PIERRE Clifton; Dr. Steffi Thakur MD ~ Felting Machine Operator Helper: Signed [facility]11-03-2022 NotePap Smear Specimen AdequacyNov2021 2:30pmComment.Satisfactory for evaluation. No endocervical component is identified.[facility]ACED A#[id number] [facility] Work Phone: Comment on above:Satisfactory for evaluation. No endocervical component is identified.04-18-2022 NoteHNO ID: [id number] Author: Neetu Sanchez APRN.REGISTERED TRAVEL NURSE Service: ? Author Type: Nurse Practitioner Type: Progress Notes Filed: 04/18/2022 3:57 PM Note Text: Subjective The history is provided by the patient. No historic interpreter was used. HPI Kristin Turcios is a 46 year old female who presents today for CC of exposure to covid, positive home test, and upper respiratory symptoms Symptoms include: Fever (?100.4F): No or Chills: No Cough: Yes Shortness of breath: No or Difficulty breathing: No Fatigue: No Muscle aches: No Headache: Yes New loss of smell or taste: No Sore throat: No Nasal congestion: Yes or Rhinorrhea: Yes Nausea: No or Vomiting: No Diarrhea: No OTC meds/remedies that patient has tried: acetaminophen and NSAIDs. High risk category assessment Chronic lung disease Exposures: Sick contacts? Yes Family or close contacts with confirmed/probable COVID-19 in last 14 days? Yes BP 120/78 Pulse 90 Temp 36.8 ?C (98.2 ?F) Resp 20 Wt 89.4 kg (197 lb 3.2 oz) SpO2 97% Social History Tobacco Use - Smoking status: Current Every Day Smoker - Smokeless tobacco: Never Used Substance Use Topics - Alcohol use: Not on file - Drug use: Not on file No past medical history on file. I have confirmed and edited as necessary, the [facility] Review of Systems Constitutional: Negative for chills, fever and malaise/fatigue. HENT: Positive for congestion and sinus pain. Negative for ear pain and sore throat. Respiratory: Positive for cough. Negative for sputum production, shortness of breath and wheezing. Cardiovascular: Negative for chest pain. Gastrointestinal: Negative for abdominal pain, diarrhea, nausea and vomiting. Musculoskeletal: Negative for myalgias. Neurological: Positive for headaches. Objective Physical Exam Vitals and nursing note reviewed. HENT: Head: Normocephalic and atraumatic. Right Ear: Tympanic membrane, ear canal and external ear normal. Left Ear: Tympanic membrane, ear canal and external ear normal. Nose: Mucosal edema, congestion and rhinorrhea present. Right Sinus: No maxillary sinus tenderness or frontal sinus tenderness. Left Sinus: No maxillary sinus tenderness or frontal sinus tenderness. Mouth/Throat: Pharynx: Uvula midline. No oropharyngeal exudate or posterior oropharyngeal erythema. Cardiovascular: Rate and Rhythm: Normal rate and regular rhythm. Heart sounds: Normal heart sounds. Pulmonary: Effort: Pulmonary effort is normal. Breath sounds: Normal breath sounds. Lymphadenopathy: Head: Right side of head: No submental, submandibular or tonsillar adenopathy. Left side of head: No submental, submandibular or tonsillar adenopathy. Cervical: No cervical adenopathy. Skin: General: Skin is warm and dry. Neurological: Mental Status: She is alert. Psychiatric: Mood and Affect: Affect normal. ASSESSMENT/PLAN: 1. Exposure to COVID-19 virus - ICD9: V01.79, ICD10: Z20.822 (primary diagnosis) - COVID WITH FLUA+B, ROUTINE 2. Suspected COVID-19 virus infection - ICD9: V01.79, ICD10: Z20.822 - COVID WITH FLUA+B, ROUTINE 3. Upper respiratory symptom - ICD9: 786.9, ICD10: R09.89 Home isolation Testing ordered Comfort measures discussed - see patient instructions. When to seek higher level of care Notified in 24-48 hours with results, available on mychart - COVID WITH FLUA+B, ROUTINE Diagnosis and treatment plan were discussed and questions were answered to the patient's satisfaction. Pt acknowledged understanding of concepts and follow up plan. Specific signs and symptoms that would indicate the need for higher level of care were discussed in detail warranting prompt ER evaluation. Neetu Sanchez APRN.[facility] Influenza virus A and B RNA and SARS-CoV-2 (COVID-19) N gene panel LEXIE+probe (Resp)COVID 19 RESULT: SARS-CoV-2 (Agent of COVID-19) Detected by RT-PCR or equivalent method. This test was developed and its performance characteristics determined by [facility] [place]. This test has been authorized by FDA under an Emergency Use Authorization (EUA). This test has been validated in accordance with the FDA's Guidance Document Policy for DiagnosticsTesting in Laboratories Certified to Perform High Complexity Testing under CLIA prior to Emergency use Authorization for Coronavirus Disease 2019 during the Public Health Emergency issued on January 12, 2020. Test performed by [facility], Andrea Serrano [facility] [place], [address] [place] [address]. INFLUENZA A PCR: Negative for Influenza A by RT-PCR INFLUENZA B PCR: Negative for Influenza B by RT-PCRBlanchard Valley Health Systemment on above: Performed By: #### [id number] #### [facility] CLIA [id number] [address] [place], [place] [address] [address] [id number] History of Present illness Narrative* Neetu Sanchez APRN.[facility] - 04/18/2022 3:36 PM EDT Subjective The history is provided by the patient. No historic interpreter was used. HPI Kristin Turcios is a 46 year old female who presents today for CC of exposure to covid, positivehome test, and upper respiratory symptoms Symptoms include: Fever (?100.4F): No or Chills: No Cough: Yes Shortness of breath: No or Difficulty breathing: No Fatigue: No Muscle aches: No Headache: Yes New loss of smell or taste: No Sore throat: No Nasal congestion: Yes or Rhinorrhea: Yes Nausea: No or Vomiting: No Diarrhea: No OTC meds/remedies that patient has tried: acetaminophen and NSAIDs. High risk category assessment Chronic lung disease Exposures: Sick contacts? Yes Family or close contacts with confirmed/probable COVID-19 in last 14 days? Yes BP 120/78 Pulse 90 Temp 36.8 C (98.2 F) Resp 20 Wt 89.4 kg (197 lb 3.2 oz) SpO2 97% Social History Tobacco Use Smoking status: Current Every Day Smoker Smokeless tobacco: Never Used Substance Use Topics Alcohol use: Not on file Drug use: Not on file No past medical history on file. I have confirmed and edited as necessary, the [facility] Review of Systems Constitutional: Negative for chills, fever and malaise/fatigue. HENT: Positive for congestion and sinus pain. Negative for ear pain and sore throat. Respiratory: Positive for cough. Negative for sputum production, shortness of breath and wheezing. Cardiovascular: Negative for chest pain. Gastrointestinal: Negative for abdominal pain, diarrhea, nausea and vomiting. Musculoskeletal: Negative for myalgias. Neurological: Positive for headaches. Objective Physical Exam Vitals and nursing note reviewed. HENT: Head: Normocephalic and atraumatic. Right Ear: Tympanic membrane, ear canal and external ear normal. Left Ear: Tympanic membrane, ear canal and external ear normal. Nose: Mucosal edema, congestion and rhinorrhea present. Right Sinus: No maxillary sinus tenderness or frontal sinus tenderness. Left Sinus: No maxillary sinus tenderness or frontal sinus tenderness. Mouth/Throat: Pharynx: Uvula midline. No oropharyngeal exudate or posterior oropharyngeal erythema. Cardiovascular: Rate and Rhythm: Normal rate and regular rhythm. Heart sounds: Normal heart sounds. Pulmonary: Effort: Pulmonary effort is normal. Breath sounds: Normal breath sounds. Lymphadenopathy: Head: Right side of head: No submental, submandibular or tonsillar adenopathy. Left side of head: No submental, submandibular or tonsillar adenopathy. Cervical: No cervical adenopathy. Skin: General: Skin is warm and dry. Neurological: Mental Status: She is alert. Psychiatric: Mood and Affect: Affect normal. ASSESSMENT/PLAN: 1. Exposure to COVID-19 virus - ICD9: V01.79, ICD10: Z20.822 (primary diagnosis) - COVID WITH FLUA+B, ROUTINE 2. Suspected COVID-19 virus infection - ICD9: V01.79, ICD10: Z20.822 - COVID WITH FLUA+B, ROUTINE 3. Upper respiratory symptom - ICD9: 786.9, ICD10: R09.89 Home isolation Testing ordered Comfort measures discussed - see patient instructions. When to seek higher level of care Notified in 24-48 hours with results, available on Threadfliphart - COVID WITH FLUA+B, ROUTINE Diagnosis and treatment plan were discussed and questions were answered to the patient's satisfaction. Pt acknowledged understanding of concepts and follow up plan. Specific signs and symptoms that would indicate the need for higher level of care were discussed indetail warranting prompt ER evaluation. Neetu Sanchez APRN.CNP [facility] Instructions* Patient Instructions* Neetu Sanchez APRN.CNP - 04/18/2022 3:35 PM EDT covid test ordered You will be notified in 24 -48 hours, results available on DocRunhart Home isolation until covid results are back Rest, increase water intake Motrin or Tylenol as needed for fever or pain. Salt water gargles, chloraseptic spray or lozenges as needed for sore throat. Warm beverages, honey. Nasal saline spray as needed Cool mist humidifier at night Tylenol (generic acetaminophen) 500 mg-2 tabs every 8 hrs. as needed for fever and aches Ibuprofen 600 mg (3-200mg tablets) every 6 hours -Mucinex (generic is fine) Guaifenesin 1200 mg twice daily to help with cough and to thin out mucus * Seek medical care immediately, call 911, go to ER if you have chest pain, difficulty breathing, shortness of breath, inability to swallow. Follow the CDC guidelines for isolation for covid positive 1. Everyone, regardless of vaccination status, should stay home for 5 days. 2. If you have no symptoms or your symptoms are resolving after 5 days, you can leave your house. 3. Continue to wear a mask around others for 5 additional days. If you have a fever, continue to stay home until your fever resolves, even if it is longer than 5 days. Please monitor your symptoms, and for any worrisome symptoms. Continue comfort measures for symptoms as you would for a cold. Any worsening symptoms follow up with PCP or ER. [facility] Diagnosis Exposure to COVID-19 virus- Primary Suspected COVID-19 virus infection Upper respiratory symptom Other symptoms involving respiratory system and chest documented in this encounter [facility] noteNo assessment information availableWSelect Medical [facility] Work Phone: Reason for referral (narrative)No reason for referral information availableWSelect [facility] Work Phone: Health Concerns Infection Onset Date Last Indicated Resolved Time COVID-19 Rule-Out 04/18/2022 04/18/2022 Summary Purpose Family History No Family History Records Found Relationship Condition Age at Onset Recorded Date/T raysa father Cardiac disease Unknown grandmother Cardiac disease Unknown grandfather Cardiac disease Unknown Advance Directives No Advanced Directives Records Found Advance Directive Response Recorded Date/ Time Living Will No August 02, 2021 12:32pm 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 No July 12:32pm Advance Directive Response Recorded Date/ Time Living Will No August 02, 2021 11:32am 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 No July 11:32am Chief Complaint and Reason for Visit Chief Complaint SCREENING Chief Complaint CHEST XRAY SLEEP APNEA Chief Complaint CHEST XRAY SLEEP APNEA HEMOPTYSIS PEEWEE; AUTO CPAP *DEVICE TAGGED Chief Complaint Admit Date ADD CXR AND FOOT XRAYS May 27, 2025 3 :01pm Chief Complaint Admit Date ADD CXR AND FOOT XRAYS May 27, 2025 3 :01pm UPPER AND LOWER- BLOATING June 20 2:26pm Chief Complaint Admit Date ADD CXR AND FOOT XRAYS May 27, 2025 3 :01pm UPPER AND LOWER- BLOATING June 20 2:26pm ASSESS FOR ABNORMALITIES AND HEART FUNCT ION June 28, 2025 11:55am Reason for Visit Admit Date Bloating June 20, 2025 2:2 6pm Encounter for screening for malignant ne oplasm of colon June 20, 2025 2:26pm Additional Source Comments Source Comments (unrecognize d section and content) In the event this informatio n is protected by the Federal Confidentiality of Alcohol and Drug Abuse Patient Records regulations: The Federal rules restrict any use of the information to criminally investigate or prosecute any alcohol or drug abuse patient.[facility] Reason for Visit (unrecogniz ed section and content) Reason Comments Head Congestion covid exposure x3 da ys Care Teams (unrecognized sec tion and content) Director Hospice Operations Relationship Specialty Start Date End Date Steffi Thakur [address] [facility] [address] PCP - General Family Practice 04/18/22 Team Status: Active Member Role Status Dates Adin MAZA Family Provider Active Dr. Steffi Thakur MD Primary Care Provider Active Team Status: Inactive Member Role Status Dates Dr. Steffi Thakur MD Primary Care Prov ider, Attending Provider, Referring Provider Active Team Status: Active Member Role Status Dates Dr. Steffi Thakur MD Primary Care Prov ider, Attending Provider, Referring Provider Active Team Status: Active Member Role Status Dates Dr. Steffi Thakur MD Primary Care Provider, Attendin g Provider Active Team Status: Inactive Member Role Status Dates Dr. Steffi Thakur MD Primary Care Provider, Attendin g Provider Active Team Status: Active Member Role/Relationship Status Dates Dr. Steffi Thakur MD Primary Care Provider Active Team Status: Inactive Member Role/Relationship Status Dates Dr. Steffi Thakur MD Primary Care Provider Active Start: May 27, 2025 End: May 27, 2025 JEAN-PIERRE Lowry Attending Provider Active St art: May 27, 2025 End: May 27, 2025 JEAN-PIERRE Lowry Referring Provider Active St art: May 27, 2025 End: May 27, 2025 Team Status: Inactive Member Role/Relationship Status Dates Dr. Steffi Thakur MD Primary Care Provider Active Start: June 20, 2025 End: June 20, 2025 Dr. Steffi Thakur MD Referring Provider Active Start: June 20, 2025 End: June 20, 2025 Dr. Joey Marks MD Attending Provider Active Start: June 20, 2025 End: June 20, 2025 Team Status: Inactive Member Role/Relationship Status Dates Dr. Steffi Thakur MD Primary Care Provider Active Start: June 28, 2025 End: June 28, 2025 JEAN-PIERRE Lowry Attending Provider Active St art: June 28, 2025 End: June 28, 2025 JEAN-PIERRE Lowry Referring Provider Active St art: June 28, 2025 End: June 28, 2025 Team Status: Active Member Role/Relationship Status Dates Dr. Steffi Thakur MD Primary Care Provider Active Start: June 28, 2025 Dr. Berto Zuñiga MD Attending Provider Active S tart: June 28, 2025 INFORMATION SOURCE (unrecogn ized section and content) DATE CREATED AUTHOR 04/19/2022 [facility] DATE CREATED AUTHOR AUTHOR'S ORGANIZ ATION 07/23/[address] [facility] Goals (unrecognized section and content) Goals may be documented in a n alternate sectionGoals may be documented in an alternate sectionGoals may be documented in an alternate sectionGoals may be documented in an alternate sectionGoals may be documented in an alternate sectionGoals may be documented in an alternate sectionGoals may be documented in an alternate sectionGoals may be documented in an alternate sectionGoals may be documented in an alternate sectionGoals may be documented in an alternate section FOR RECORDS PERTAINING TO PATIENTS WHO ARE OR HAVE BEEN ENROLLED IN A CHEMICAL DEPENDENCY/SUBSTANCEABUSE PROGRAM, SOME INFORMATION MAY BE OMITTED. This clinical summary was aggregated from multiple sources. Caution should be exercised in using it in the provision of clinical care. This summary normalizes information from multiple sources, and as a consequence, information in this document may materially change the coding, format and clinical context of patient data. In addition, data may be omitted in some cases. CLINICAL DECISIONS SHOULD BE BASED ON THE PRIMARY CLINICAL RECORDS. [employer] provides no warranty or guarantee of the accuracy or completeness of information in this document.
[2025-07-26] MEDS: Lactated Ringers 1,000 ML 15 ML IV (08:48)
--- NOTE | 2025-07-26 08:51 | PCM.PRE.AN2 ---
ASA Classification* ASA Classification ASA Classification: 2 Assessment & Plan Anesthesia* Anesthesia Assessment Anesthesia Assessment: Discussed sedation and/or anesthesia options, risks, benefits, and alternatives with patient/parents/legal guardian/POA. Questions invited. The patient/parents/legal guardian/POA seems to understand and agrees to proceed with anesthesia plan. Reviewed the physical assessment, medical history, allergy history and patient home medications list prior to surgery/procedure/anesthetic and documented any changes. Performed airway and anesthesia risk assessments. Anesthesia Type Anesthesia Type: MAC Anesthesia Focused Assessment* Temperature: 98.4 F Pulse Rate: 70 Blood Pressure: 115/55 Respiratory Rate: 18 Pulse Ox: 100 Airway Assessment Mouth opens: >3 cm Mallampati Score: III Labs Anesthesia Preop lab: CBC WBC 10.4 K/mm3 (4.4-11.0) 05/27/25 15:05 05/27/25 RBC 4.89 M/mm3 (4.2-5.4) 05/27/25 15:05 05/27/25 Hgb 14.6 g/dL (12.0-15.0) 05/27/25 15:05 05/27/25 Hct 43.7 % (37-47) 05/27/25 15:05 05/27/25 Plt Count 350 K/mm3 (150-450) 05/27/25 15:05 05/27/25 CHEMISTRY Potassium 4.1 mmol/L (3.3-5.1) 05/27/25 15:05 05/27/25 Sodium 135 mmol/L (133-145) 05/27/25 15:05 05/27/25 BUN 11 mg/dL (4-19) 05/27/25 15:05 05/27/25 Creatinine 1.07 mg/dL (0.70-1.20) 05/27/25 15:05 05/27/25 Glucose 81 mg/dL (70-99) 05/27/25 15:05 05/27/25 TSH 2.830 uIU/mL (0.358-3.740) 08/16/24 14:51 08/16/24 COAG PT 13.3 SECONDS (11.7-14.9) 12/01/17 12:31 01/18/18 Urine Test Negative Negative 12/05/17 06:50 12/05/17 Pre-Assessment Diagnosis/Proposed Procedure Planned Operative Procedure(s): colonoscopy, egd Anesthesia History 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 When Was Last Pacemaker Check QUESTION #4 FULL TEXT: You/Your Family Experience fever (hyperthermia) with Anesthesia Last Oral Intake Last Oral intake: Last Oral Intake NPO since 04:00 07/26/25 08:45 Meds taken in AM with sips of No 07/26/25 08:45 water? Meds patient instructed to take am of surgery PONV PONV - lead software development engineer: PONV - lead software development engineer Female Yes 07/22/25 16:02 HX of Motion Sickness No 07/22/25 16:02 HX of N/V After Surgery No 07/22/25 16:02 Non-Smoker No 07/22/25 16:02 Duration of Surgery greater No 07/22/25 16:02 than 60 minutes Number of Risk Factors 1 07/22/25 16:02 PONV Score Low Risk 07/22/25 16:02 Height & Weight Height & Weight: Anesthesia: Height & Weight Height 5 ft 3 in 07/26/25 08:45 Weight: 90.4 kg 07/26/25 08:45 Body Mass Index (BMI) 35.3 07/26/25 08:45 Respiratory Assessment Respiratory Assessment - lead software development engineer: Respiratory Tract Infection Hx - lead software development engineer Hx Respiratory Tract Infection No 07/22/25 16:02 STOP Sleep Apnea STOP Sleep Apnea - lead software development engineer: STOP Sleep Apnea - lead software development engineer Hx Hypertension Yes 07/22/25 16:02 Hx Sleep Apnea Yes 07/22/25 16:02 CPAP Yes 07/22/25 16:02 BIPAP No 07/22/25 16:02 Do you snore loudly (louder than talking or can be heard Do you often feel tired/ fatigued/ sleepy during daytime? Has anyone observed you stop breathing during sleep? STOP Results Positive 07/22/25 16:02 QUESTION #5 FULL TEXT : Do you snore loudly (louder than talking or can be heard through closed doors)? 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 Specify any problems Hx of Preganancy in last 3 No 07/22/25 16:02 Months Nurse Filling Out Transfusion JZOLLINGE 07/22/25 16:02 & Questions: Date: 07/22/25 07/22/25 16:02 Time: 16:05 07/22/25 16:02 Patient unable to answer at this time (ie. confused, unrespo /Reproduction History /Reproductive History - lead software development engineer: /Reproductive Hx- lead software development engineer Hx Now No 07/22/25 16:02 Gestational Age (in weeks): EDC: Hx Hx Para Hx Section SAB No 07/22/25 16:02 Active Medications Active Medications: Current Medications Generic Name Dose Route Start Last Admin Trade Name Freq PRN Reason Stop Dose Admin Lactated Ringer's 1,000 mls @ 15 mls/hr 07/26/25 08:30 07/26/25 08:48 IV 15 mls/hr .Q48H JOCELIN Administration PFSH Medical History Depression Anxiety Alcohol use Heartburn Smoker CPAP (continuous positive airway pressure) dependence Sleep apnea History of echocardiogram History of stress test Kidney stones Home Medications ?Medication ?Instructions ?Recorded ?Last Taken ?Type sertraline 50 mg tablet 50 mg PO .q hs #90 tabs 07/20/19 07/25/25 21:00 History Saccharomyces boulardii 250 mg 250 mg PO QDAY 06/20/25 Unknown History capsule (Daily Probiotic (S. boulardii)) furosemide 20 mg tablet (Lasix) 20 mg PO QAM 06/20/25 Unknown History phentermine 37.5 mg capsule 37.5 mg PO QDAY 06/20/25 07/19/25 History potassium chloride 10 mEq 10 meq PO QDAY 06/20/25 07/25/25 21:00 History capsule,extended release Allergy/AdvReac Type Severity Reaction Status Date / Time No Known Allergies Allergy Verified 07/26/25 08:44 Family History Father Heart disease Grandmother Heart disease Grandfather Heart disease Surgical History (Updated 07/22/25 @ 16:02 by Adeline Pantoja) Hx of tubal ligation Status post surgical removal of both fallopian tubes Hx of section Social History (Updated 06/20/25 @ 14:43 by Edilma Mcqueen) Smoking Status: Current every day smoker tobacco type: cigarettes quit status: not considering quitting alcohol intake: current alcohol intake frequency: holidays/special occasions only Review of Systems (Anesthesia) ROS Narrative System reviewed and no additional complaints, except as documented.
--- NOTE | 2025-07-26 09:19 | PCM.POSTANE2 ---
Anesthesia Postop Eval I Sum Anesthesia Postop Eval I Summary Anesthesia Postop Eval I Summary: Anesthesia Postop Eval I: Assessment Summary Airway patent Spontaneous unlabored respirations Mental status Awake 07/26/25 08:53 nausea No 07/26/25 08:53 Vomiting No 07/26/25 08:53 Anesthesia Postop Eval I: Fluid Summary Crystalloid volume administer (ml) Colloids volume administered ( ml) Blood Product volume administered (ml) Total IV fluid infused Anesthesia Postop Eval I: Summary Notes Anesthesia Complication Anesthesia Complication Comment: Post-operative progress note Anesthesia: Postop Eval II Evaluation Mental status: Awake Pain Level: 0 nausea: No Vomiting: No
--- NOTE | 2025-07-26 09:33 | PCM.HP.BLA ---
History and Physical Date of Admission: 07/26/25 Intake Vital Signs 08/02/2113:59 06/20/2514:43 Height 5 ft 3 in 5 ft 3 in Weight: 208 lb BMI 36.8 BP 119/74 Blood Pressure Location Rt brachial Position Sitting Respiration 17 Pulse 92 Pulse Source Monitor Pulse Oximetry (%) 98 Oxygen Delivery Method room air Intake Visit Reasons: UPPER AND LOWER- BLOATING Chief Complaint: upper and lower Is patient in pain?: No Allergies No Known Allergies Allergy (Verified 06/20/25 14:45) Medications ?Medication ?Instructions ?Recorded ?Confirmed ?Type sertraline 50 mg tablet PO #90 tabs 07/20/19 06/20/25 History Saccharomyces boulardii 250 mg 250 mg PO QDAY 06/20/25 06/20/25 History capsule (Daily Probiotic (S. boulardii)) furosemide 20 mg tablet (Lasix) 20 mg PO QAM 06/20/25 06/20/25 History phentermine 37.5 mg capsule 37.5 mg PO QDAY 06/20/25 06/20/25 History potassium chloride 10 mEq 10 meq PO QDAY 06/20/25 06/20/25 History capsule,extended release PFSH Medical History Kidney stones Surgical History Status post surgical removal of both fallopian tubes Hx of section Family History Father Heart diseaseGrandmother Heart diseaseGrandfather Heart disease Social History (Updated 06/20/25 @ 14:43 by Edilma Mcqueen) Smoking Status: Current every day smoker tobacco type: cigarettes quit status: not considering quitting alcohol intake: current alcohol intake frequency: holidays/special occasions only HPI HPI HPI: Patient is a 49-year-old female who is here for abdominal bloating. She says anytime she eats she gets very bloated in her upper abdomen and gets very gassy. She reports she has never had a colonoscopy for screening. She has never had an EGD. She has tried PPI in the past but she said it was sporadic. ROS General General: Yes weight change; No appetite, fatigue, colon cancer, breast cancer or weakness Additional Details: loss intentional HEENT HEENT: No difficulty swallowing, eye injury, eye surgery, swollen glands or hoarseness Endo Endocrine: No thyroid disease, diabetes mellitus, thyroid cancer, Hair loss, heat intolerance or cold intolerance Skin Skin: No rash or changing moles Musc Musculoskeletal: Yes back problems; No arthritis, rheumatoid arthritis, gout or joint pain Cardio Cardiovascular: No murmur, pacemaker, heart disease, atrial fibrillation, high blood pressure, heart attack, heart stent, palpitations, shortness of breath with exertion or chest pain Psych Psychiatric: Yes depression and anxiety; No hearing voices Resp Respiratory: Yes shortness of breath, Yes sleep apnea, Yes cough, No COPD, No asthma, No emphysema and No wheezing Gastro Gastrointestinal: No abdominal pain, No nausea or vomiting, No diarrhea, Yes constipation, No blood in stool, No acid reflux, No hemorrhoids, No ulcers, No gallbladder problem and No black,tarry stools Additional Details: Bloating [place] Hematologic: No blood thinners, No blood disorders, No bleeding, No anemia and No blood clots Neuro Neurologic: No system reviewed and no additional complaints, except as documented, No as per HPI, No abnormal gait, No abnormal hearing, No abnormal movements, No abnormal speech, No behavioral changes, No burning sensations, No confusion, No convulsions, No disequilibrium, No dizziness, No localized weakness, No frequent falls, No headache(s), No lack of coordination, No loss of vision, No memory loss, No numbness, No other visual disturbances, No radicular pain, No restless legs, No sensory deficit, No syncope, Yes tingling, No tremor(s), No weakness and No other Exam Const General: cooperative Orientation: alert and oriented x3 [facility] Head: normal to inspection Neck Neck: normal visual inspection and full ROM Chest Chest palpation & inspection: normal inspection of the chest Resp Effort & Inspection: normal respiratory effort Auscultation: clear to auscultation bilaterally Cardio Rate: regular rate Rhythm: regular rhythm GI Inspection: non-distended Palpation: soft and nontender Skin General: no rashes or lesions noted Neuro General: patient alert and patient oriented x3 Extrem General: full ROM Psych Appearance: grossly normal Mental Status: mental status grossly normal Assessment and Plan Assessment and Plan (1) Encounter for screening for malignant neoplasm of colon: Status: Acute Plan: Patient has never had a screening colonoscopy. I described this in detail and recommended screening colonoscopy. I explained endoscopy in detail to the patient. I explained the risks including but not limited to stroke or heart attack with anesthesia, perforation of the GI tract, bleeding, infection. I explained that any of these could necessitate further emergency surgery. The patient understands and all questions were answered sufficiently. The patient wishes to proceed with procedure. (2) Bloating: Status: Acute Plan: The patient is having a lot of bloating. I will perform an EGD at the same time to evaluate the stomach for gastritis or ulceration. Patient is also going to try a 2-month course of omeprazole. Joey Marks MD Pager: [facility] [address] [place] [address] [address] [place] [address] Office: I have examined the patient and the H&P has been reviewed. There are no clinical changes since date of exam.
--- NOTE | 2025-07-26 09:35 | PCM.POST.ANE ---
Anesthesia: Postop Eval I Current Vital Signs Temperature: 97.7 F Pulse Rate: 65 Blood Pressure: 99/68 Respiratory Rate: 16 Pulse Ox: 97 Oxygen Delivery Method: Room Air Assessment Airway patent: Yes Spontaneous unlabored respirations: Yes Mental status: Awake nausea: No Vomiting: No Anesthesia Complication: No Fluid Hydration Crystalloid volume administer (ml): 500 Total IV fluid infused: 500 Progress Note Anesthesia document: Postop Eval 1 completed: Yes
[2025-07-26] MEDS: Lidocaine 1% (5 ml sdv) 5 ML Vial 10 ML IV (09:51)
--- NOTE | 2025-07-26 10:04 | OP.EGD_ITS ---
Patient Name: Rosa Castillo Procedure Date: 07/26/2025 9:34 AM Date of : 1975 Age: 50 Procedure: Upper GI endoscopy Indications: Abdominal bloating Providers: Joey Marks MD Medicines: Propofol per Anesthesia Patient Profile: This is a 50 year old female. Refer to note in patient chart for documentation of history and physical. Complications: No immediate complications. Procedure: Pre-Anesthesia Assessment: - Prior to the procedure, a History and Physical was performed, and patient medications and allergies were reviewed. The patient's tolerance of previous anesthesia was also reviewed. The risks and benefits of the procedure and the sedation options and risks were discussed with the patient. All questions were answered, and informed consent was obtained. Prior Anticoagulants: The patient has taken no anticoagulant or antiplatelet agents. After reviewing the risks and benefits, the patient was deemed in satisfactory condition to undergo the procedure. After obtaining informed consent, the endoscope was passed under direct vision. Throughout the procedure, the patient's blood pressure, pulse, and oxygen saturations were monitored continuously. The Colonoscope was introduced through the mouth, and advanced to the fourth part of duodenum. The upper GI endoscopy was accomplished without difficulty. The patient tolerated the procedure well. Scope In: 9:48:23 AM Scope Out: 9:49:58 AM Total Procedure Duration Time 0 hours 1 minute 35 seconds Findings: The esophagus was normal. The stomach was normal. The examined duodenum was normal. Impression: - Normal esophagus. - Normal stomach. - Normal examined duodenum. - No specimens collected. Recommendation: - Discharge patient to home. - Resume previous diet. - Continue present medications. Procedure Code(s): --- Professional --- 00760, Esophagogastroduodenoscopy, flexible, transoral; diagnostic, including collection of specimen(s) by brushing or washing, when performed (separate procedure) Diagnosis Code(s): --- Professional --- R14.0, Abdominal distension (gaseous) CPT copyright 2021 [employer]. All rights reserved. The codes documented in this report are preliminary and upon sign painter review may be revised to meet current compliance requirements. Joey Marks MD 07/26/2025 10:03:48 AM This report has been signed electronically. Number of Addenda: 0 Note Initiated On: 07/26/2025 9:34 AM
--- NOTE | 2025-07-26 10:04 | OP.PROVAT_ITS ---
07/26/2025 Steffi Thakur [place] [id number] [place] [address] Re : Upper GI endoscopy procedure for Rosa Castillo Dear Dr. Thakur This procedure was performed on Saturday, July 26, 2025. My impressions and recommendations are as follows: Impressions : - Normal esophagus. - Normal stomach. - Normal examined duodenum. - No specimens collected. Recommendations : - Discharge patient to home. - Resume previous diet. - Continue present medications. My findings are described in the full procedure note, which is enclosed. If I can be of further assistance, please feel free to contact me at Doctor phone number(s): , Work: . Sincerely, Joey Marks MD 07/26/2025 10:03:48 AM This report has been signed electronically.
--- NOTE | 2025-07-26 10:05 | OP.COLON_ITS ---
Patient Name: Rosa Castillo Procedure Date: 07/26/2025 9:50 AM Date of : 1975 Age: 50 Procedure: Colonoscopy Indications: Screening for colorectal malignant neoplasm Providers: Joey Marks MD Medicines: Propofol per Anesthesia Patient Profile: This is a 50 year old female. Refer to note in patient chart for documentation of history and physical. Last Colonoscopy: none. The patient's first colonoscopy is today. Complications: No immediate complications. Procedure: Pre-Anesthesia Assessment: - Prior to the procedure, a History and Physical was performed, and patient medications and allergies were reviewed. The patient's tolerance of previous anesthesia was also reviewed. The risks and benefits of the procedure and the sedation options and risks were discussed with the patient. All questions were answered, and informed consent was obtained. Prior Anticoagulants: The patient has taken no anticoagulant or antiplatelet agents. After reviewing the risks and benefits, the patient was deemed in satisfactory condition to undergo the procedure. - Prior to the procedure, a History and Physical was performed, and patient medications and allergies were reviewed. The patient's tolerance of previous anesthesia was also reviewed. The risks and benefits of the procedure and the sedation options and risks were discussed with the patient. All questions were answered, and informed consent was obtained. Prior Anticoagulants: The patient has taken no anticoagulant or antiplatelet agents. After reviewing the risks and benefits, the patient was deemed in satisfactory condition to undergo the procedure. After I obtained informed consent, the scope was passed under direct vision. Throughout the procedure, the patient's blood pressure, pulse, and oxygen saturations were monitored continuously. The Colonoscope was introduced through the anus and advanced to the cecum, identified by appendiceal orifice and ileocecal valve. The colonoscopy was performed without difficulty. The patient tolerated the procedure well. The quality of the bowel preparation was good. The ileocecal valve, appendiceal orifice, and rectum were photographed. Scope In: 9:51:45 AM Scope Withdrawal Time 0 hours 6 minutes 21 seconds Scope Out: 10:03:35 AM Total Procedure Duration Time 0 hours 11 minutes 50 seconds Findings: The entire examined colon appeared normal on direct and retroflexion views. Impression: - The entire examined colon is normal on direct and retroflexion views. - No specimens collected. Recommendation: - Discharge patient to home. - Resume previous diet. - Continue present medications. - Repeat colonoscopy in 10 years for screening purposes. Procedure Code(s): --- Professional --- 86767, Colonoscopy, flexible; diagnostic, including collection of specimen(s) by brushing or washing, when performed (separate procedure) Diagnosis Code(s): --- Professional --- Z12.11, Encounter for screening for malignant neoplasm of colon CPT copyright 2021 [employer]. All rights reserved. The codes documented in this report are preliminary and upon mobile health vehicle operator review may be revised to meet current compliance requirements. Joey Marks MD 07/26/2025 10:05:29 AM This report has been signed electronically. Number of Addenda: 0 Note Initiated On: 07/26/2025 9:50 AM
--- NOTE | 2025-07-26 10:06 | OP.PROVAT_ITS ---
07/26/2025 Steffi Thakur [facility] [address] [address] Re : Colonoscopy procedure for Rosa Castillo Dear Dr. Thakur This procedure was performed on Saturday, July 26, 2025. My impressions and recommendations are as follows: Impressions : - The entire examined colon is normal on direct and retroflexion views. - No specimens collected. Recommendations : - Discharge patient to home. - Resume previous diet. - Continue present medications. - Repeat colonoscopy in 10 years for screening purposes. My findings are described in the full procedure note, which is enclosed. If I can be of further assistance, please feel free to contact me at Doctor phone number(s): , Work: . Sincerely, Joey Marks MD 07/26/2025 10:05:29 AM This report has been signed electronically.
--- NOTE | 2025-07-26 10:10 | PCM.POST.ANE ---
Anesthesia: Postop Eval I Current Vital Signs Temperature: 97.3 F Pulse Rate: 65 Blood Pressure: 95/52 Respiratory Rate: 16 Pulse Ox: 100 Oxygen Delivery Method: Room Air Assessment Airway patent: Yes Spontaneous unlabored respirations: Yes Mental status: Awake nausea: No Vomiting: No Anesthesia Complication: No Fluid Hydration Crystalloid volume administer (ml): 700 Total IV fluid infused: 700 Progress Note Anesthesia document: Postop Eval 1 completed: Yes
--- NOTE | 2025-07-26 10:20 | POSTOPAN2_ITS ---
Anesthesia Postop Eval I Sum Postop Eval Completion status Anesthesia document: Postop Eval 1 completed: Yes Anesthesia Postop Eval I Summary Anesthesia Postop Eval I Summary: Anesthesia Postop Eval I: Assessment Summary Airway patent Yes 07/26/25 10:11 TUBE OPERATOR.APAT Spontaneous unlabored Yes 07/26/25 10:11 TUBE OPERATOR.APAT respirations Mental status Awake 07/26/25 10:11 TUBE OPERATOR.APAT nausea No 07/26/25 10:11 TUBE OPERATOR.APAT Vomiting No 07/26/25 10:11 TUBE OPERATOR.APAT Anesthesia Postop Eval I: Fluid Summary Crystalloid volume administer 700 07/26/25 10:11 TUBE OPERATOR.APAT (ml) Colloids volume administered ( ml) Blood Product volume administered (ml) Total IV fluid infused 700 07/26/25 10:11 TUBE OPERATOR.APAT Anesthesia Postop Eval I: Summary Notes Anesthesia Complication No 07/26/25 10:11 TUBE OPERATOR.APAT Anesthesia Complication Comment: Post-operative progress note Anesthesia: Postop Eval II Evaluation Mental status: Awake Pain Level: 0 nausea: No Vomiting: No
--- NOTE | 2025-07-26 10:20 | PCM.POSTANE2 ---
Anesthesia Postop Eval I Sum Postop Eval Completion status Anesthesia document: Postop Eval 1 completed: Yes Anesthesia Postop Eval I Summary Anesthesia Postop Eval I Summary: Anesthesia Postop Eval I: Assessment Summary Airway patent Yes 07/26/25 10:11 CARE WORKER.APAT Spontaneous unlabored Yes 07/26/25 10:11 CARE WORKER.APAT respirations Mental status Awake 07/26/25 10:11 CARE WORKER.APAT nausea No 07/26/25 10:11 CARE WORKER.APAT Vomiting No 07/26/25 10:11 CARE WORKER.APAT Anesthesia Postop Eval I: Fluid Summary Crystalloid volume administer 700 07/26/25 10:11 CARE WORKER.APAT (ml) Colloids volume administered ( ml) Blood Product volume administered (ml) Total IV fluid infused 700 07/26/25 10:11 CARE WORKER.APAT Anesthesia Postop Eval I: Summary Notes Anesthesia Complication No 07/26/25 10:11 CARE WORKER.APAT Anesthesia Complication Comment: Post-operative progress note Anesthesia: Postop Eval II Evaluation Mental status: Awake Pain Level: 0 nausea: No Vomiting: No
== END 2025-07-26 10:57 | disposition home or self-care (01) ==
LOC: EN 08:18 → AC 08:20
PROVIDERS: PCP Family Medicine; Referring Provider Family Medicine; Visit Provider Surgery
PROC: 0DJD8ZZ Inspection of Lower Intestinal Tract, Via Natural or Artificial Opening Endoscopic (ICD-10-PCS; CPT 45378; principal; 2025-07-26 09:10)
DX: Z12.11 Encounter for screening for malignant neoplasm of colon (principal); R14.0 Abdominal distension (gaseous); F17.210 Nicotine dependence, cigarettes, uncomplicated; F41.9 Anxiety disorder, unspecified; Z79.899 Other long term (current) drug therapy
CPT/HCPCS: 44360; 45378